=== PATIENT | male | born 1955 | race Caucasian/White ===

== ENCOUNTER 2024-05-16 08:25 | Emergency (ER) | payer MEDICARE, SELFPAY ==
[2024-05-16 08:42] VITALS: BP 246/153; PULSE 97; RESP 18; TEMP 36.5; O2SAT 95
--- NOTE | 2024-05-16 08:57 | W.ED.GENAD ---
Discharge Plan Disposition Patient Disposition: Home Condition: Stable Discharge Details Chief Complaint: Urinary Clinical Impression: Hypertension, Acute urinary retention, Hematuria Primary Care Provider: None,None ED Provider: Festus Kimbrough Home Meds and New Rx's Prescriptions: No Action No Known Home Meds Discharge Instructions Instructions: How to Care for Your Rodríguez Catheter Additional Instructions: You had a Rodríguez placed for urinary retention. He also have bloody urine. I recommend stopping your aspirin that you been taking. He also had a high blood pressure here and I recommended starting on a blood pressure medicine but he wanted to talk to your primary care provider first. I do recommend you follow-up with them as soon as possible. I also placed her on a follow-up list to see urology, you should receive a phone call for follow-up appointment. If you feel more ill or have new symptoms such as severe abdominal pain or fevers return to the emergency department for reevaluation Referrals: Jean-Pierre Soto MD [ [facility] STAFF PHYSICIAN] - [facility] General Mode of arrival: ambulatory. Date/Time Provider Initiated Documentation: 05/16/24 08:31. Limitations to Documentation: no limitations. Information obtained by: patient. History of Present Illness 68 year old M presents to the emergency department with the chief complaint of difficulty breathing, described as moderate, Patient reports no radiation. Patient started experiencing this hour(s) (12) and it has been constant. No relieving factors improve symptom(s), No exacerbating factors reported . Patient notes denies fever/chills, nausea/vomiting and shortness of breath. Patient did receive the following treatments prior to arrival, none Related Data Home Medications ?Medication ?Instructions ?Recorded ?Confirmed Unknown [No Known Home Meds] 05/16/24 05/16/24 Allergies Allergy/AdvReac Type Severity Reaction Status Date / Time No Known Allergies Allergy Unverified 05/16/24 08:46 General Stated Complaint: Urinary KERRY: 3 Review of Systems All systems reviewed & are unremarkable except as noted in HPI and below Constitutional Constitutional: Denies chills, Denies fever(s) and Denies weakness Cardiovascular Cardiovascular: Denies chest pain and Denies dyspnea Respiratory Respiratory: Denies cough and Denies dyspnea Gastrointestinal Gastrointestinal: Denies abdominal pain, Denies nausea and Denies vomiting Genitourinary Genitourinary: Reports hematuria and Reports difficulty urinating Neurologic Neurologic: Denies weakness Exam Const General: no acute distress Orientation: alert [facility] Head: normal to inspection Ears: external ears normal General nose exam: external nose normal Mouth: moist mucous membranes Eyes General: appearance normal, both eyes and all related structures Neck Neck: normal visual inspection Resp Effort & Inspection: normal respiratory effort and able to speak in complete sentences Cardio Rate: regular rate GI Palpation: not firm and no guarding Skin General skin exam: no rashes or lesions noted Neuro General: patient alert and patient oriented x3 Extrem General: normal to inspection Psych Mental Status: mental status grossly normal Course Vital Signs Vital signs: Vital Signs Temperature 36.5 C 05/16/24 08:42 Pulse 97 H 05/16/24 08:42 Respiratory Rate 18 05/16/24 08:42 Blood Pressure 246/153 H 05/16/24 08:42 Pulse Oximetry 95 05/16/24 08:42 Temperature 36.5 C 05/16/24 08:42 Temperature Source Oral 05/16/24 08:42 Pulse 97 H 05/16/24 08:42 Respiratory Rate 18 05/16/24 08:42 Blood Pressure 246/153 H 05/16/24 08:42 Pulse Oximetry 95 05/16/24 08:42 Pain Level 7 05/16/24 08:42 Medical Decision Making 68-year-old male who denies any chronic medical problems though he does not see a doctor regularly, comes in with 12 hours of difficulty urinating. He also notes some blood in his urine. He denies any fevers, vomiting. Suprapubic region is mildly enlarged but not tender. He does have over 600 cc on bladder scan. No CVA tenderness. I suspect acute urinary retention, he has no saddle anesthesia or back pain to suggest cauda equina. I will have nursing place a Rodríguez catheter and reassess. I did check basic labs and he has a mild anemia, no old to compare to. He does have a creatinine as well of 2.6 with a GFR of 25. Again no old to compare to any does not believe he had blood work done in years. He has been hypertensive since being here, I do suspect he has an treated hypertension and likely is affecting his kidneys. Nursing was able to place a Rodríguez and had blood that came out, they were able to hand irrigate and now is draining clear faintly tinged bloody urine. He has no abdominal tenderness andNo back pain. I recommended starting him on an antihypertensive but he declines and states that he cannot follow-up with a personal doctor diagnosed. I am going to give him a referral to see urology soon as possible for management of his hematuria and urinary retention. Return precautions given Differential Diagnosis Differential Diagnosis: Enlarged prostate, cancer, UTI Quality:SDOH Health Related Social Needs: No Data to Display PFSH All Active Problems (Updated 05/16/24 @ 13:00 by Festus Kimbrough MD) Hematuria (Acute) Acute urinary retention (Acute) Hypertension (Chronic) Social History Smoking/Tobacco Use Status: Never Smoking risk assessment performed?: Yes Substance use type: does not use Do you feel safe at home: Yes Do you feel safe in your relationship?: Yes
[2024-05-16 10:09] LABS: Bilirubin Negative (Negative); Blood Large (Negative); Clarity Cloudy (Clear); Glucose Negative (Negative); Ketones Negative (Negative); Leukocyte Esterase Trace (Negative); Nitrite Negative (Negative); Specific Gravity 1.025 (1.005-1.025); Urobilinogen 0.2 mg/dL (Up to 0.2)
[2024-05-16 10:15] LABS: C & S Indicated? No; RBC >50 HPF (0-2)
[2024-05-16 11:08] LABS: Abs Immature Grans 0.03 10^3/uL (0.0-0.06); Absolute Basophil Count 0.03 10^3/uL (0.0-0.2); Absolute Lymphocyte Count 0.36 10^3/uL (1.2-3.4); Absolute Neutrophil Count 8.04 10^3/uL (1.2-6.7); Basophils % 0.3 %; HGB 12.5 g/dL (13.5-17.5); Immature Grans % 0.3 %; MCHC 32.9 % (32.0-36.0); MCV 85 fL (80-95); MPV 10.6 fL (8.0-11.0); Monocytes % 6.6 %; Neutrophils % 88.8 %; Platelet Count 171 10^3/uL (130-400); RBC 4.47 10^6/uL (4.36-5.78); RDW-SD 40.4 fL; WBC 9.06 10^3/uL (4.4-10.8)
[2024-05-16 11:34] LABS: ALT 25 U/L (16-63); AST 21 U/L (15-37); Albumin 3.7 g/dL (3.4-5.0); Alkaline Phosphatase 98 U/L (46-116); Anion Gap 10.9 mmol/L (3-11); BUN 54 mg/dL (7-18); Bilirubin, Total 0.51 mg/dL (0.2-1.0); CO2 24.1 mmol/L (21.0-32.0); CREATININE 2.6 mg/dL (0.70-1.30); Chloride 104 mmol/L (98-107); Estimated GFR 25.72 (mL/min/1.73m2); Glucose 112 mg/dL (74-106); Potassium 3.6 mmol/L (3.5-5.1); Sodium 139 mmol/L (136-145); Total Protein 7.2 g/dL (6.4-8.2)
[2024-05-16 12:09] VITALS: BP 197/117; PULSE 87; RESP 20; O2SAT 96
[2024-05-16 13:25] VITALS: BP 191/103; PULSE 88; RESP 18; O2SAT 95
== END 2024-05-16 13:45 | disposition home or self-care (01) ==
PROVIDERS: Emergency Provider Emergency Medicine
DX: R31.9 Hematuria, unspecified (principal); R33.8 Other retention of urine; I10 Essential (primary) hypertension
CPT/HCPCS: 36415; 51702; 51798; 80048; 80053; 99284; 81003; 81015; 83735; 85025

== ENCOUNTER 2024-05-17 02:17 | Emergency (ER) | payer MEDICARE, SELFPAY ==
[2024-05-17 02:20] VITALS: BP 153/93; PULSE 95; RESP 16; TEMP 37.6; O2SAT 97
[2024-05-17 02:24] VITALS: BP 153/93; PULSE 95; RESP 16; TEMP 37.6; O2SAT 97
--- NOTE | 2024-05-17 03:34 | W.ED.GENAD ---
Discharge Plan Disposition Patient Disposition: Home Condition: Good Discharge Details Chief Complaint: Urinary Clinical Impression: Hematuria Primary Care Provider: None,None ED Provider: Chuck Steven Home Meds and New Rx's Prescriptions: No Action No Known Home Meds Discharge Instructions Instructions: Blood in Urine (Hematuria), Adult ED Additional Instructions: As we discussed together it is very important that you follow-up closely with Dr. Soto. Although you have desired to hold off on a referral for a primary care provider, if you change your mind at any point do not hesitate to reach back out and we can place this referral for you. Please perform the flushing techniques that you were shown. Although you declined admission tonight, if you continue to have issues with your catheter we are always happy to have you come back and reevaluate the option for admission. If you notice any worsening of your symptoms, or any new symptoms such as vomiting, diarrhea, fever, chills, shortness of breath, chest pain, numbness, weakness, or fainting , please return immediately to the emergency department for reevaluation. Please follow up with your primary care provider as soon as possible for reassessment and reevaluation. As always, it was a pleasure participating in your medical care today. Referrals: Jean-Pierre Soto MD [ [facility] STAFF PHYSICIAN] - [facility] General Date/Time Provider Initiated Documentation: 05/17/24 02:27. [facility] Narrative: This is a pleasant 68-year-old male with no significant past medical history since he does not visit a doctor regularly, who presents for evaluation of hematuria. Patient states that he has been having intermittent hematuria for the last 5+ years, however it recently got bad in the last day or so. He was here in the emergency department earlier yesterday for hematuria. Blood work was performed and demonstrated a stable hemoglobin at 12.5, normal platelets. A Rodríguez catheter was placed and he was discharged home with expectant outpatient follow-up with urology. Unfortunately this evening he had a significant amount of clots again, and felt notable fullness in his bladder and came back for reassessment. Aside for this he denies any other complaints. He was taking aspirin regularly but has stopped that now. This was self prescribed. He denies any personal or family history of bladder or prostate cancer. No other complaints at this time. Related Data Home Medications ?Medication ?Instructions ?Recorded ?Confirmed Unknown [No Known Home Meds] 05/16/24 05/17/24 Allergies Allergy/AdvReac Type Severity Reaction Status Date / Time No Known Allergies Allergy Unverified 05/17/24 02:24 General Stated Complaint: Urinary KERRY: 4 Exam Narrative Exam Narrative: 1.Const: Well-nourished, Well-developed, appearing stated age 2.Eyes: PERRL, no conjunctival injection, and symmetrical lids. 3.ENT: Atraumatic external nose and ears. Moist MM. Neck: Symmetric, trachea midline, No thyromegaly. 4.CVS: +S1/S2, Peripheral pulses 2+ and equal in all extremities. Brisk capillary refill in all extremities. 5.RESP: Unlabored respiratory effort. Clear to auscultation bilaterally. No wheezes rales or rhonchi 6.GI: Soft, Nontender/Nondistended, No hepatosplenomegaly. No guarding or rebound. Mild fullness suprapubically. Catheter in place, no active bleeding around the Rodríguez. 7.MSK: Normocephalic/Atraumatic, Extremities w/o deformity or ttp No cyanosis or clubbing, Normal movement of all extremities 8.Skin: Warm, Dry. No rashes or lesions. 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 Sensation grossly intact, no focal neurologic deficits. 10.Psych: (AAO) x3. Appropriate mood and affect Course Vital Signs Vital signs: Vital Signs Temperature 37.6 C 05/17/24 02:20 Pulse 95 H 05/17/24 02:20 Respiratory Rate 16 05/17/24 02:20 Blood Pressure 153/93 H 05/17/24 02:20 Pulse Oximetry 97 05/17/24 02:20 Temperature 37.6 C 05/17/24 02:24 Temperature Source Temporal Artery Scan 05/17/24 02:24 Pulse 95 H 05/17/24 02:24 Respiratory Rate 16 05/17/24 02:24 Blood Pressure 153/93 H 05/17/24 02:24 Pulse Oximetry 97 05/17/24 02:24 Oxygen Delivery Method Room Air 05/17/24 02:24 Oxygen Flow Rate 0 05/17/24 02:20 Pain Level 5 05/17/24 02:24 Medical Decision Making This is a pleasant 68-year-old male with no significant past medical history since he does not visit a doctor regularly, who presents for evaluation of hematuria. Patient states that he has been having intermittent hematuria for the last 5+ years, however it recently got bad in the last day or so. He was here in the emergency department earlier yesterday for hematuria. Blood work was performed and demonstrated a stable hemoglobin at 12.5, normal platelets. A Rodríguez catheter was placed and he was discharged home with expectant outpatient follow-up with urology. Unfortunately this evening he had a significant amount of clots again, and felt notable fullness in his bladder and came back for reassessment. Aside for this he denies any other complaints. He was taking aspirin regularly but has stopped that now. This was self prescribed. He denies any personal or family history of bladder or prostate cancer. No other complaints at this time. Exam demonstrates well-appearing male, clinically stable, no signs of an acute surgical abdomen. Notable clots are noted in his Rodríguez catheter. Concern for cystic mass, polyp or ulcer as a cause of the bleeding. Discussed with the patient options for three-way irrigation and admission, but the patient has declined. He would prefer to go home and follow-up outpatient with Dr. Soto. We will flush his catheter, monitor closely and reassess. 6:40 AM Patient had a few episodes of clots, multiple washings were performed. Eventually all clots were removed and the patient requested instructions on how to to do it at home. He was provided this education. He continues to decline admission. Additionally I did offer to place a PCP referral as I am notably concerned with his hematuria, it is renal dysfunction, and lack of good medical evaluation over the last decade or so. However, patient has declined PCP referral and request to focus primarily on his work with Dr. Soto at this time. Patient will be holding off on aspirin use. I had a long discussion with the patient that if at any point he changes his mind on his desire for referral or admission we are happy to have him back for reevaluation and assessment. Patient will be discharged home. I have extensively reviewed the treatment plan and discharge instructions with the patient. I have addressed all patient concerns at this time. The patient was made aware of what symptoms to monitor for that would warrant a return to the emergency department. Discussed the plan with the patient, they demonstrate verbal understanding and agreement with our assessment and plan at this time. The documentation in this chart was dictated using ncyclo dictation software. Please excuse any dictation errors. Quality:SDOH Health Related Social Needs: No Data to Display PFSH All Active Problems (Updated 05/17/24 @ 06:39 by Chuck Steven DO) Hematuria (Acute) Hematuria (Acute) Acute urinary retention (Acute) Hypertension (Chronic) Social History Smoking/Tobacco Use Status: Never Smoking risk assessment performed?: Yes Alcohol Intake: never Drug use: Never Substance use type: does not use Housing: house Do you feel safe at home: Yes Do you feel safe in your relationship?: Yes
--- NOTE | 2024-05-17 05:19 | NUR.NOTE ---
Nursing Note: pt educated on leg bag and care of the alegre and proper placement, he stated that he was not told on the care or if the extension tubing and not to allow it kink
[2024-05-17 06:56] VITALS: BP 140/76; PULSE 67; RESP 16; TEMP 36.7; O2SAT 99
--- NOTE | 2024-05-19 16:00 | NUR.NOTE ---
Nursing Note: Received call from that patient has run out of saline to flush his catheter with and doesnt have an appt with [facility] until tomorrow and needs more fluids. 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
== END 2024-05-17 06:56 | disposition home or self-care (01) ==
PROVIDERS: Emergency Provider Student in an Organized Health Care Education/Training Program
DX: R31.9 Hematuria, unspecified (principal)
CPT/HCPCS: 51700; 99284; 99283

== ENCOUNTER → 2024-05-22 14:10 | Outpatient (BNVA) | payer MEDICARE, SELFPAY | PROVIDERS: Visit Provider Urology | DX: R31.9 Hematuria, unspecified (principal); R79.89 Other specified abnormal findings of blood chemistry | CPT/HCPCS: 99215 ==

== ENCOUNTER 2024-05-30 22:21 | Emergency (ER) | payer MEDICARE, SELFPAY ==
[2024-05-30 22:45] VITALS: BP 148/87; PULSE 84; RESP 16; TEMP 36.3; O2SAT 97
--- NOTE | 2024-05-30 22:46 | ED.GENADUL_ITS ---
Discharge Plan Disposition Patient Disposition: Home Condition: Good Discharge Details Clinical Impression: Alegre catheter problem Primary Care Provider: None,None ED Provider: Darshan Head Home Meds and New Rx's Prescriptions: No Action No Known Home Meds Discharge Instructions Additional Instructions: You were seen because your alegre bag was leaking, this was replaced. Be sure to follow up for your ordered studies and with Dr. Soto. Return to ED for problems. Discharge Data Discharge Date/Time-TO BE ENTERED AT DEPARTURE: 05/30/24 22:56 HPI General Mode of arrival: ambulatory . Date/Time Provider Initiated Documentation: 05/30/24 22:46 . Limitations to Documentation: no limitations . Information obtained by: patient and RN notes reviewed . HPI Narrative: Patient presenting to ED because his Alegre catheter bag is leaking. Patient has Alegre catheter in place because of hematuria and urinary retention. He is not having issues with the catheter. He is leaking from the bag itself. He is placed the Alegre bag inside a freezer bag to prevent leakage. He presents requesting a new Alegre bag. Related Data Home Medications ?Medication ?Instructions ?Recorded ?Confirmed Unknown [No Known Home Meds] 05/16/24 05/30/24 Allergies Allergy/AdvReac Type Severity Reaction Status Date / Time No Known Allergies Allergy Unverified 05/30/24 22:44 General KERRY: 4 Exam Narrative Exam Narrative: Const: WDWN elderly male in NAD. VS per triage. HEENT: NC/AT. Normal facial exam. Neck: Supple. Trachea midline. Lungs: Normal respiratory effort. Neuro: A+O x 3. Normal speech, mentation, gait. Cranial nerves II - XII grossly intact. No gross motor or sensory deficit. Medical Decision Making Patient's catheter does seem to be draining appropriately. There is leakage from the bag itself into the plastic freezer bag that he has placed his Alegre bag again. He has no specific medical complaints. He has already been seen by urology and is in the process of being worked up. He is provided with a new Alegre leg bag. Follow-up with PCP and urology as planned. Return precautions provided. Medical Records Medical records reviewed: Yes I reviewed the patient's medical records. [facility] All Active Problems (Updated 05/30/24 @ 22:55 by Darshan Head MD) Alegre catheter problem (Acute) Elevated serum creatinine (Acute) Hematuria (Acute) Acute urinary retention (Acute) Medical History Hypertension Social History Smoking/Tobacco Use Status: Never Smoking risk assessment performed?: Yes Alcohol Intake: never Drug use: Never Substance use type: does not use Housing: house Do you feel safe at home: Yes Do you feel safe in your relationship?: Yes
== END 2024-05-30 22:56 | disposition home or self-care (01) ==
PROVIDERS: Emergency Provider Emergency Medicine
DX: T83.038A Leakage of other urinary catheter, initial encounter (principal)
CPT/HCPCS: 99282

== ENCOUNTER 2024-06-15 12:46 | Outpatient (CLI) | payer MEDICARE, SELFPAY ==
[2024-06-15 13:59] LABS: Anion Gap 10.4 mmol/L (3-11); CO2 25.6 mmol/L (21.0-32.0); Chloride 108 mmol/L (98-107); Potassium 4.5 mmol/L (3.5-5.1); Sodium 144 mmol/L (136-145)
[2024-06-15 22:37] LABS: PSA, Diagnostic 6.5 ng/mL (<=6.5)
== END 2024-06-15 12:47 | disposition home or self-care (01) ==
LOC: LBO 12:46
PROVIDERS: Visit Provider Urology
DX: R31.0 Gross hematuria (principal); I10 Essential (primary) hypertension
CPT/HCPCS: 36415; 80051; 84153

== ENCOUNTER 2024-06-19 16:18 | Emergency (ER) | payer MEDICARE, SELFPAY ==
[2024-06-19 16:24] VITALS: BP 219/114; PULSE 82; RESP 15; TEMP 36.3; O2SAT 98
[2024-06-19 16:28] VITALS: BP 219/114; PULSE 82; RESP 15; TEMP 36.3; O2SAT 98
[2024-06-19 16:59] VITALS: BP 198/97
[2024-06-19 17:10] LABS: Abs Immature Grans 0.03 10^3/uL (0.0-0.06); Absolute Basophil Count 0.05 10^3/uL (0.0-0.2); Absolute Eosinophil Count 0.16 10^3/uL (0.0-0.7); Absolute Lymphocyte Count 0.69 10^3/uL (1.2-3.4); Absolute Monocyte Count 0.45 10^3/uL (0.1-0.8); Absolute Neutrophil Count 5.45 10^3/uL (1.2-6.7); Basophils % 0.7 %; Eosinophils % 2.3 %; HCT 26.4 % (40.0-50.0); HGB 8.2 g/dL (13.5-17.5); Immature Grans % 0.4 %; Lymphocytes % 10.1 %; MCH 26.5 pg (27.0-33.0); MCHC 31.1 % (32.0-36.0); MCV 85 fL (80-95); MPV 10.2 fL (8.0-11.0); Monocytes % 6.6 %; Neutrophils % 79.9 %; Platelet Count 259 10^3/uL (130-400); RBC 3.09 10^6/uL (4.36-5.78); RDW 13.1 % (11.8-14.1); RDW-SD 40.6 fL; WBC 6.83 10^3/uL (4.4-10.8)
[2024-06-19 17:20] LABS: Diff Comment RBC Morph Reviewed; RBC Morphology Normal
[2024-06-19 17:21] LABS: Anion Gap 13.5 mmol/L (3-11); BUN 42 mg/dL (7-18); CO2 20.5 mmol/L (21.0-32.0); CREATININE 2.3 mg/dL (0.70-1.30); Calcium 9.1 mg/dL (8.5-10.1); Chloride 110 mmol/L (98-107); Glucose 103 mg/dL (74-106); Sodium 144 mmol/L (136-145)
[2024-06-19 19:16] VITALS: BP 182/87; PULSE 78; RESP 16; O2SAT 98
--- NOTE | 2024-06-19 19:37 | W.ED.GENAD ---
Discharge Plan Disposition Patient Disposition: Home Condition: Serious Discharge Details Clinical Impression: Acute renal failure, Anemia, Gross hematuria Primary Care Provider: Unknown,Unknown ED Provider: Adilia Hand Home Meds and New Rx's Prescriptions: Continued losartan 25 mg tablet 25 mg PO BID Patient Comments: TAKE ONE TABLET BY MOUTH TWICE A DAY aspirin 81 mg tablet,chewable 81 mg PO DAILY Discharge Instructions Instructions: Acute Kidney Injury (DC), Anemia, Possibly From Low Iron, Adult ED, Blood in Urine (Hematuria), Adult ED Additional Instructions: I am concerned you may have a bladder mass or bladder cancer you are in renal failure and your blood pressure is elevated, 2.3 your hemoglobin and hematocrit are very low 8.2 and 26.4 your exam is very concerning and we recommend CT imaging to evaluate for cancer and the cause of your severely diminished hemoglobin levels your blood pressure is very high, i recommend adding another blood pressure medication you have declined additional work up at this time you understand that you may have cancer and we are recommending urgent imaging, please discuss with your natropath and let him review this note care for your alegre with supplies call Dr Soto tomorrow Referrals: Jean-Pierre Soto MD [ [facility] STAFF PHYSICIAN] - 1 day HPI General Date/Time Provider Initiated Documentation: 06/19/24 16:36. HPI Narrative: The patient is a 68-year-old male with gross hematuria, intermittent clots, and bladder pressure. He feels his Alegre catheter is not draining properly. He had a Alegre catheter placed a month ago and refused imaging during follow-ups with urology. He is currently refusing hospital admission and CT imaging, preferring to wait for his holistic practitioner appointment tomorrow. He is aware of his anemia, ongoing bleeding, acute renal failure, and likely bladder mass. Despite recommendations for imaging and admission, he declines intervention. We flushed his Alegre catheter, which is now draining without clots. He is hypertensive (BP 182/87) and will follow up with his practitioner. A referral to Dr. Griggs has been placed. The patient and his were advised on iron supplements and protein intake to manage hemoglobin levels at home. Related Data Home Medications ?Medication ?Instructions ?Recorded ?Confirmed aspirin 81 mg chewable tablet 81 mg PO DAILY 06/19/24 06/19/24 losartan 25 mg tablet 25 mg PO BID 06/19/24 06/19/24 Allergies Allergy/AdvReac Type Severity Reaction Status Date / Time No Known Allergies Allergy Unverified 06/19/24 16:29 General Stated Complaint: Urinary KERRY: 3 Exam Narrative Exam Narrative: General Appearance: The patient is alert, oriented, pale, and in no acute distress. Vital signs: BP 182/87. HEENT: Within normal limits. Respiratory: Within normal limits. Cardiovascular: Within normal limits. Gastrointestinal: No suprapubic or flank tenderness. Genitourinary: Gross hematuria in the Alegre catheter without clots. Skin: Within normal limits. Neurological: Normal. Course Vital Signs Vital signs: Vital Signs Temperature 36.3 C L 06/19/24 16:24 Pulse 82 06/19/24 16:24 Respiratory Rate 15 06/19/24 16:24 Blood Pressure 219/114 H 06/19/24 16:24 Pulse Oximetry 98 06/19/24 16:24 Temperature 36.3 C L 06/19/24 16:28 Pulse 78 06/19/24 19:16 Respiratory Rate 16 06/19/24 19:16 Blood Pressure 182/87 H 06/19/24 19:16 Blood Pressure Position Sitting 06/19/24 16:28 Pulse Oximetry 98 06/19/24 19:16 Oxygen Delivery Method Room Air 06/19/24 16:28 Oxygen Flow Rate 0 06/19/24 16:28 Pain Level 0 06/19/24 19:16 Lab/Test Results Lab/Test Results: Laboratory Tests Range/Units 06/19/24 17:03 WBC (4.4-10.8) 10^3/uL 6.83 RBC (4.36-5.78) 10^6/uL 3.09 L Hgb (13.5-17.5) g/dL 8.2 L Hct (40.0-50.0) % 26.4 L MCV (80-95) fL 85 MCH (27.0-33.0) pg 26.5 L MCHC (32.0-36.0) % 31.1 L RDW (11.8-14.1) % 13.1 Plt Count (130-400) 10^3/uL 259 MPV (8.0-11.0) fL 10.2 Immature Gran % % 0.4 Neutrophils % % 79.9 Lymphocytes % % 10.1 Monocytes % % 6.6 Eosinophils % % 2.3 Basophils % % 0.7 Nucleated RBC % (0.0-0.3) % 0.0 Absolute Neutrophils (1.2-6.7) 10^3/uL 5.45 Absolute Lymphocytes (1.2-3.4) 10^3/uL 0.69 L Absolute Monocytes (0.1-0.8) 10^3/uL 0.45 Absolute Eosinophils (0.0-0.7) 10^3/uL 0.16 Absolute Basophils (0.0-0.2) 10^3/uL 0.05 RBC Morphology Normal Sodium (136-145) mmol/L 144 Potassium (3.5-5.1) mmol/L 4.0 Chloride (98-107) mmol/L 110 H Carbon Dioxide (21.0-32.0) mmol/L 20.5 L Anion Gap (3-11) mmol/L 13.5 H BUN (7-18) mg/dL 42 H Creatinine (0.70-1.30) mg/dL 2.3 H Est GFR (CKD-EPI 2020) (mL/min/1.73m2) 29.80 Glucose (74-106) mg/dL 103 Calcium (8.5-10.1) mg/dL 9.1 Medical Decision Making Hemoglobin dropped from 12 to 8. Hematocrit dropped from 32 to 26. Anion gap elevated. BUN 42, creatinine 2.3. Initial Assessment: 68-year-old male with blood in urine, intermittent difficulty, clots, and bladder pressure. Alegre catheter concerns. Anemia, elevated anion gap, BUN 42, creatinine 2.3. Differential Diagnosis: - Bladder mass: Concern for gross hematuria. Recommended CT abdomen/pelvis. Patient refuses imaging and admission. ED Course: - Alegre catheter flushed and draining without clots. - Referral to Dr. Griggs placed. - Patient advised on iron supplements and protein intake for anemia. - Patient advised to follow up with holistic practitioner for acute renal failure and hypertension. Final Assessment: Patient presents with gross hematuria, likely due to a bladder mass. Anemia with significant hemoglobin drop. Acute renal failure and hypertension noted. Patient refuses recommended imaging and admission. Alegre catheter flushed and draining appropriately. Referral to Dr. Griggs placed. Patient advised on dietary supplements and follow-up with holistic practitioner. Clinical Impression: - Gross hematuria - Anemia - Acute renal failure - Hypertension Disposition: - Follow-Up: Referral to Dr. Griggs urgently in the outpatient setting. Follow-up with holistic practitioner. Patient Education: Advised on iron supplements and protein intake. Discussed urgency of follow-up and need for imaging and admission. MDM Components Evaluation: - Number of Differential Diagnoses or Management Options: Bladder mass - Amount and Complexity of Data Reviewed: Hemoglobin, hematocrit, BUN, creatinine, blood pressure - Risk of Complication and Morbidity or Mortality: High risk due to ongoing bleeding, anemia, acute renal failure, and hypertension. Quality:SDGA Health Related Social Needs: No Data to Display PFSH All Active Problems (Updated 06/19/24 @ 18:36 by FAITH Taylor) Gross hematuria (Acute) Anemia (Chronic) Acute renal failure (Acute) Alegre catheter problem (Acute) Elevated serum creatinine (Acute) Medical History Hypertension Social History Smoking/Tobacco Use Status: Never Smoking risk assessment performed?: Yes Alcohol Intake: never Drug use: Never Substance use type: does not use Housing: house Do you feel safe at home: Yes Do you feel safe in your relationship?: Yes
--- NOTE | 2024-06-21 17:35 | NUR.NOTE ---
Patient called stating that he had blood work done this week and was wondering what his blood type is. In reviewing his results with Dr. Henao, there was no blood typing done. Patient was told this. Nursing Note:
== END 2024-06-19 19:07 | disposition home or self-care (01) ==
PROVIDERS: Emergency Provider Physician Assistant
DX: R31.0 Gross hematuria (principal); D64.9 Anemia, unspecified; N17.9 Acute kidney failure, unspecified; I10 Essential (primary) hypertension
CPT/HCPCS: 51700; 80048; 99283; 85025

== ENCOUNTER 2024-06-22 15:44 | Emergency (ER) | payer MEDICARE, SELFPAY ==
[2024-06-22] VITALS (18 sets, daily range): BP systolic 179–207; BP diastolic 84–106; PULSE 72–94; RESP 14–25; TEMP 36.5–36.8; O2SAT 85–98
--- NOTE | 2024-06-22 15:45 | RT.EKG_ITS ---
APPROVED REPORT Exam: Resting ECG Reason for Exam: Weakness Patient Location: E HR:79 bpm ECG Measurements Heart Rate 79 AXIS IN 189 P 54 QRSd 93 QRS 64 QT 373 T [id number] QTc 429 Conclusion Sinus rhythm [address] non specific ST change no stemi
[2024-06-22 16:14] LABS: Abs Immature Grans 0.03 10^3/uL (0.0-0.06); Absolute Basophil Count 0.02 10^3/uL (0.0-0.2); Absolute Eosinophil Count 0.03 10^3/uL (0.0-0.7); Absolute Lymphocyte Count 0.51 10^3/uL (1.2-3.4); Absolute Monocyte Count 0.36 10^3/uL (0.1-0.8); Absolute Neutrophil Count 7.61 10^3/uL (1.2-6.7); Basophils % 0.2 %; Eosinophils % 0.4 %; HGB 7.8 g/dL (13.5-17.5); Immature Grans % 0.4 %; MCH 26.1 pg (27.0-33.0); MCHC 31.2 % (32.0-36.0); MCV 84 fL (80-95); MPV 10.4 fL (8.0-11.0); Monocytes % 4.2 %; Neutrophils % 88.8 %; Platelet Count 282 10^3/uL (130-400); RBC 2.99 10^6/uL (4.36-5.78); RDW 13.2 % (11.8-14.1); RDW-SD 40.3 fL; WBC 8.56 10^3/uL (4.4-10.8)
[2024-06-22 16:27] LABS: ALT 17 U/L (16-63); AST 10 U/L (15-37); Albumin 3.4 g/dL (3.4-5.0); Alkaline Phosphatase 82 U/L (46-116); Anion Gap 15.3 mmol/L (3-11); BUN 37 mg/dL (7-18); Bilirubin, Total 0.4 mg/dL (0.2-1.0); CO2 19.7 mmol/L (21.0-32.0); CREATININE 2.3 mg/dL (0.70-1.30); Calcium 9.2 mg/dL (8.5-10.1); Chloride 107 mmol/L (98-107); Glucose 122 mg/dL (74-106); Magnesium 2.1 mg/dL; Sodium 142 mmol/L (136-145); Total Protein 6.9 g/dL (6.4-8.2)
[2024-06-22] MEDS: Lidocaine 2% Jelly 11 ML SYR (16:43)
[2024-06-22 16:51] LABS: Bilirubin Negative (Negative); Blood Large (Negative); Clarity Cloudy (Clear); Glucose Negative (Negative); Ketones Trace mg/dL (Negative); Leukocyte Esterase Large (Negative); Nitrite Positive (Negative); Urobilinogen 0.2 mg/dL (Up to 0.2); pH 6.5 (5-8)
[2024-06-22 16:56] LABS: Bacteria Many HPF (Negative); Crystals Negative HPF (Negative); Epithelial Cells Few HPF (Negative); Mucus Moderate (Negative); Other Cells Negative (Negative); RBC >50 HPF (0-2); WBC >50 HPF (0-5)
[2024-06-22 16:57] LABS: C & S Indicated? Yes; Casts Negative LPF (Negative)
--- NOTE | 2024-06-22 18:11 | ED.GENADUL_ITS ---
Discharge Plan Disposition Patient Disposition: Against Medical Advice Discharge Details Clinical Impression: Acute renal insufficiency, Rodríguez catheter problem, Anemia, Bladder mass, Catheter-associated urinary tract infection Primary Care Provider: Unknown,Unknown ED Provider: Neal Henao Home Meds and New Rx's Prescriptions: No Action losartan 25 mg tablet 25 mg PO BID Patient Comments: TAKE ONE TABLET BY MOUTH TWICE A DAY aspirin 81 mg tablet,chewable 81 mg PO DAILY Discharge Instructions Additional Instructions: You are choosing to leave the hospital AGAINST MEDICAL ADVICE. You have excepted these risks including the likely resulting that will occur. You have severe anemia that would require a blood transfusion, you have worsening of your renal function and you have a urine infection that would require antibiotic treatment. Without a blood transfusion your symptoms will continue to worsen. Without treatment of without antibiotic treatment of your infection, your symptoms could worsen to sepsis and cause . Please keep your follow-up appointment with the urologist as scheduled. You can return to the hospital at any time to resume care Discharge Data Discharge Date/Time-TO BE ENTERED AT DEPARTURE: 06/22/24 18:12 HPI General Date/Time Provider Initiated Documentation: 06/22/24 16:04 . Limitations to Documentation: no limitations . Information obtained by: patient, family and old records reviewed . HPI Narrative: 68-year-old gentleman with recent medical history of urinary retention, bladder mass, hematuria, renal insufficiency and anemia we presents to the emergency department with persistent weakness. He reports that today he had some tingling inside of his right ear and he wanted to make sure that that was not a stroke. He reports that he thinks that his Rodríguez catheter can be taken out because there is not much urine going into the catheter, he is instead leaking urine into his underwear. He reports that the urine has gotten a little bit more clear and is not as bloody as it used to be initially. reports that he has an a ppointment scheduled with urology in [place] on Wednesday. Related Data Home Medications ?Medication ?Instructions ?Recorded ?Confirmed aspirin 81 mg chewable tablet 81 mg PO DAILY 06/19/24 06/19/24 losartan 25 mg tablet 25 mg PO BID 06/19/24 06/22/24 Allergies Allergy/AdvReac Type Severity Reaction Status Date / Time No Known Allergies Allergy Unverified 06/19/24 16:29 General Stated Complaint: GenMedical KERRY: 3 Exam Narrative Exam Narrative: Review of Systems: All systems reviewed & are unremarkable except as noted in HPI and below Pale, ill-appearing NCAT Mild tachycardia, hypertension Unlabored respiratory effort clear bilaterally Nondistended abdomen no abdominal tenderness Rodríguez catheter in place, minimal urine in the leg bag Extremities w edema bilaterally no focal neurologic deficits, sensation intact, generalized weakness, but no focal deficit Course Vital Signs Vital signs: Vital Signs Temperature 36.5 C 06/22/24 15:46 Pulse 94 H 06/22/24 15:46 Respiratory Rate 16 06/22/24 15:46 Blood Pressure 191/89 H 06/22/24 15:46 Pulse Oximetry 98 06/22/24 15:46 Temperature 36.5 C 06/22/24 16:00 Pulse 83 06/22/24 17:31 Pulse 83 06/22/24 17:40 Respiratory Rate 15 06/22/24 17:40 Respiratory Effort Normal, Non-Labored 06/22/24 16:00 Respiratory Depth Normal 06/22/24 16:00 Respiratory Pattern Normal 06/22/24 16:00 Blood Pressure 207/106 H 06/22/24 17:31 Blood Pressure Mean 146 06/22/24 17:31 Blood Pressure Position Supine 06/22/24 16:00 Pulse Oximetry 97 06/22/24 17:10 Oxygen Delivery Method Room Air 06/22/24 16:00 Pain Level 3 06/22/24 16:00 Lab/Test Results Lab/Test Results: 06/22/24 16:45 Urine - Reflex from Ua Urine Culture - Pending Laboratory Tests Range/Units 06/22/24 06/22/24 16:00 16:45 WBC (4.4-10.8) 10^3/uL 8.56 RBC (4.36-5.78) 10^6/uL 2.99 L Hgb (13.5-17.5) g/dL 7.8 L Hct (40.0-50.0) % 25.0 L MCV (80-95) fL 84 MCH (27.0-33.0) pg 26.1 L MCHC (32.0-36.0) % 31.2 L RDW (11.8-14.1) % 13.2 Plt Count (130-400) 10^3/uL 282 MPV (8.0-11.0) fL 10.4 Immature Gran % % 0.4 Neutrophils % % 88.8 Lymphocytes % % 6.0 Monocytes % % 4.2 Eosinophils % % 0.4 Basophils % % 0.2 Nucleated RBC % (0.0-0.3) % 0.0 Absolute Neutrophils (1.2-6.7) 10^3/uL 7.61 H Absolute Lymphocytes (1.2-3.4) 10^3/uL 0.51 L Absolute Monocytes (0.1-0.8) 10^3/uL 0.36 Absolute Eosinophils (0.0-0.7) 10^3/uL 0.03 Absolute Basophils (0.0-0.2) 10^3/uL 0.02 Sodium (136-145) mmol/L 142 Potassium (3.5-5.1) mmol/L 4.0 Chloride (98-107) mmol/L 107 Carbon Dioxide (21.0-32.0) mmol/L 19.7 L Anion Gap (3-11) mmol/L 15.3 H BUN (7-18) mg/dL 37 H Creatinine (0.70-1.30) mg/dL 2.3 H Est GFR (CKD-EPI 2020) (mL/min/1.73m2) 29.80 Glucose (74-106) mg/dL 122 H Calcium (8.5-10.1) mg/dL 9.2 Magnesium mg/dL 2.1 Total Bilirubin (0.2-1.0) mg/dL 0.4 AST (15-37) U/L 10 L ALT (16-63) U/L 17 Alkaline Phosphatase (46-116) U/L 82 Total Protein (6.4-8.2) g/dL 6.9 Albumin (3.4-5.0) g/dL 3.4 Urine Color (Yellow) Yellow Urine Clarity (Clear) Cloudy Urine pH (5-8) 6.5 Ur Specific [place] (1.005-1.025) 1.020 Urine Protein (Neg-Trace) mg/dL >=300 H Urine Ketones (Negative) mg/dL Trace H Urine Blood (Negative) Large H Urine Nitrite (Negative) Positive H Urine Bilirubin (Negative) Negative Urine Urobilinogen (Up to 0.2) mg/dL 0.2 Ur Leukocyte Esterase (Negative) Large H Urine RBC (0-2) HPF >50 H Urine WBC (0-5) HPF >50 H Ur Epithelial Cells (Negative) HPF Few Urine Crystals (Negative) HPF Negative Urine Bacteria (Negative) HPF Many Urine Casts (Negative) LPF Negative Urine Mucus (Negative) Moderate Urine Other (Negative) Negative Ur Culture Indicated? Yes Urine Glucose (Negative) mg/dL Negative ABO/Rh O Positive Antibody Screen NEGATIVE Medical Decision Making Emergent evaluation of facial numbness. Patient evaluated emergently on arrival due to concerns for possible CVA however the patient has no focal neurologic deficit and does not meet stroke criteria. I suspect that his overall weakness and debility and symptoms are secondary to his ongoing anemia likely secondary to bladder malignancy. I reviewed his medical record and noted his most recent evaluation in the emergency department. At that time there were significant concerns including anemia, renal insufficiency, ultrasound revealed large bladder mass. Patient refused CT transfusion and admission and left AGAINST MEDICAL ADVICE. today lab work was obtained. This demonstrates worsening of his anemia. Hemoglobin 7.8. No leukocytosis. Renal function is 2.3 which is consistent with prior. BUN is slightly elevated at 37, likely some evidence of dehydration. The Rodríguez catheter was changed and this did result in the urine draining and the bag filling up. There was no gross hematuria. The urinalysis does demonstrate signs of infection. Culture has been sent. I updated the patient and his on the findings today. He refuses blood transfusion he refuses antibiotics. He refuses IV fluids or hospitalization. I discussed the risk and benefits of the plan, but the patient would like to go home. He understands that he is leaving AGAINST MEDICAL ADVICE and that his serious medical condition at this time could likely result in his . He accepts the se risks. AMA I had a long discussion with the patient regarding risks, benefits, and alternatives to my recommended treatment plan, which includes Blood transfusion, antibiotics, hospitalization and the patient declined, voicing understanding of the risks but preferring instead to leave against medical advice. Some of the risks we specifically discussed included permanent disability or . I discussed with the patient that they were always welcome back to this department should they change their mind, and that regardless they should follow up with their primary care doctor at the soonest possible opportunity. All questions were answered and the patient left AMA in unchanged condition. Quality:SDOH Health Related Social Needs: No Data to Display PFSH All Active Problems (Updated 06/22/24 @ 17:21 by Neal Henao MD) Catheter-associated urinary tract infection (Acute) Bladder mass (Acute) Anemia (Chronic) Acute renal insufficiency (Acute) Gross hematuria (Acute) Anemia (Chronic) Acute renal failure (Acute) Rodríguez catheter problem (Acute) Elevated serum creatinine (Acute) Medical History Hypertension Social History Smoking/Tobacco Use Status: Never Smoking risk assessment performed?: Yes Alcohol Intake: never Drug use: Never Substance use type: does not use Housing: house Do you feel safe at home: Yes Do you feel safe in your relationship?: Yes
--- NOTE | 2024-06-22 18:13 | NUR.NOTE ---
Patient presented had new 18french alegre inserted, 200mls urinary return same was cloudy with minimal sediments. Patient tolerated procedure
== END 2024-06-22 18:12 | disposition left against medical advice (07) ==
PROVIDERS: Emergency Provider Emergency Medicine
DX: D64.9 Anemia, unspecified (principal); T83.511A Infection and inflammatory reaction due to indwelling urethral catheter, initial encounter; T83.038A Leakage of other urinary catheter, initial encounter; N28.9 Disorder of kidney and ureter, unspecified; I10 Essential (primary) hypertension; Z79.82 Long term (current) use of aspirin; Z53.29 Procedure and treatment not carried out because of patient's decision for other reasons
CPT/HCPCS: 80053; 82962; 86850; 86900; 86901; 87077; 93005; 99284; 81003; 81015; 83735; 85025; 87086; 87186; 93010

== ENCOUNTER 2024-06-27 13:33 | Emergency (ER) | payer MEDICARE, SELFPAY ==
[2024-06-27 13:59] VITALS: BP 188/97; PULSE 85; RESP 20; TEMP 37.1; O2SAT 100
[2024-06-27 14:05] VITALS: BP 188/97; PULSE 85; RESP 15; RESP 20; TEMP 37.1; O2SAT 100
--- NOTE | 2024-06-30 08:22 | ED.GENADUL_ITS ---
Discharge Plan Disposition Patient Disposition: Against Medical Advice Condition: Serious Discharge Details Clinical Impression: Gross hematuria, Dizziness Primary Care Provider: Unknown,Unknown ED Provider: Adilia Hand Home Meds and New Rx's Prescriptions: Continued losartan 25 mg tablet 25 mg PO BID Patient Comments: TAKE ONE TABLET BY MOUTH TWICE A DAY aspirin 81 mg tablet,chewable 81 mg PO DAILY Discharge Instructions Additional Instructions: You are leaving against our medical recommendation and are requesting to go to [facility], please go directly to that hospital for assessment upon departure Discharge Data Discharge Date/Time-TO BE ENTERED AT DEPARTURE: 06/27/24 14:05 HPI General Date/Time Provider Initiated Documentation: 06/27/24 13:47 . HPI Narrative: 68-year-old male presents with dizziness, difficulty standing, weakness, headache, and back pain without vomiting. Declines evaluation. Reports gross hematuria, previously seen at this facility multiple times. No falls or injuries. Called ambulance as he was unable to get up from the floor. Related Data Home Medications ?Medication ?Instructions ?Recorded ?Confirmed aspirin 81 mg chewable tablet 81 mg PO DAILY 06/19/24 06/19/24 losartan 25 mg tablet 25 mg PO BID 06/19/24 06/22/24 Allergies Allergy/AdvReac Type Severity Reaction Status Date / Time No Known Allergies Allergy Unverified 06/19/24 16:29 General Stated Complaint: GenMedical KERRY: 3 Exam Narrative Exam Narrative: General Appearance: Alert but ill-appearing, sallow, cachectic, pale, slurred speech. Vital signs: Within normal limits. HEENT: Pupils equal, round, reactive to light and accommodation. Respiratory: No respiratory distress. Cardiovascular: Regular cardiac rate and rhythm. Gastrointestinal: Mild suprapubic tenderness, no CVA tenderness. Back, Musculoskeletal: Midline lumbar spine tenderness. Skin: Warm and dry, no rash. Neurological: Normal. Other observations: No visible trauma. Course Vital Signs Vital signs: Vital Signs Temperature 37.1 C 06/27/24 13:59 Pulse 85 06/27/24 13:59 Respiratory Rate 20 06/27/24 13:59 Blood Pressure 188/97 H 06/27/24 13:59 Pulse Oximetry 100 06/27/24 13:59 Temperature 37.1 C 06/27/24 14:05 Pulse 85 06/27/24 14:05 Respiratory Rate 15 06/27/24 14:05 Respiratory Effort Normal 06/27/24 14:05 Respiratory Depth Normal 06/27/24 14:05 Respiratory Pattern Normal 06/27/24 14:05 Blood Pressure 188/97 H 06/27/24 14:05 Blood Pressure Position Sitting 06/27/24 14:05 Pulse Oximetry 100 06/27/24 14:05 Oxygen Delivery Method Room Air 06/27/24 14:05 Oxygen Flow Rate 0 06/27/24 14:05 Medical Decision Making Initial Assessment: 5-year-old male presents with dizziness, difficulty standing, headache, back pain, and gross hematuria. Patient is alert but ill in appearance, sallow, cachectic, pale, with slowed speech, mild suprapubic tenderness, midline lumbar spine tenderness, and stable vitals. No vomiting, falls, or injuries reported. ED Course: - Patient declined evaluation. - Recommended CT scans of abdomen and pelvis for cancerous lesions, nephrolithiasis, pyelonephritis, or other pathologies. - Patient's frustrated, prefers private vehicle transport, declines contact with [facility]. - Patient remains seated in bed, on phone with naturopathic doctor. - Offered to help facilitate transfer, declined. -Patient and are aware that they are leaving against our medical recommendation and are at risk for further deterioration and even -I spent approximately 5 minutes reviewing patient's diagnostics from prior evaluations including urinalysis Final Assessment: Patient appears more ill than 10 days ago, grossly anemic with acute change. Declines assessment, requests transfer to [facility]. Patient alert, oriented, ambulatory, weak, stable vitals. Urgent reassessment strongly recommended due to serious health concerns. Clinical Impression: - Gross hematuria - Anemia Disposition: - Transfer: Patient requests transfer to [facility] via private vehicle. MDM Components Evaluation: - Number of Differential Diagnoses or Management Options: Cancerous lesions, nephrolithiasis, pyelonephritis. - Amount and Complexity of Data Reviewed: CT scans recommended. - Risk of Complication and Morbidity or Mortality: High risk due to serious health concerns and acute change in condition. Quality:SDOH Health Related Social Needs: No Data to Display PFSH All Active Problems (Updated 06/30/24 @ 00:02 by FRED GONZALES) Dizziness (Acute) Catheter-associated urinary tract infection (Acute) Bladder mass (Acute) Anemia (Chronic) Acute renal insufficiency (Acute) Gross hematuria (Acute) Anemia (Chronic) Acute renal failure (Acute) Elevated serum creatinine (Acute) Medical History Hypertension Social History Smoking/Tobacco Use Status: Never Smoking risk assessment performed?: Yes Alcohol Intake: never Drug use: Never Substance use type: does not use Housing: house Do you feel safe at home: Yes Do you feel safe in your relationship?: Yes
== END 2024-06-27 14:05 | disposition left against medical advice (07) ==
PROVIDERS: Emergency Provider Physician Assistant
DX: R42 Dizziness and giddiness (principal); R31.0 Gross hematuria; D64.9 Anemia, unspecified; N32.9 Bladder disorder, unspecified; Z79.82 Long term (current) use of aspirin; Z53.29 Procedure and treatment not carried out because of patient's decision for other reasons
CPT/HCPCS: 99283

== ENCOUNTER 2024-10-03 07:55 | Emergency (ER) | payer MEDICARE, SELFPAY ==
[2024-10-03 08:01] VITALS: BP 215/93; PULSE 97; RESP 15; TEMP 36.7; O2SAT 100
--- NOTE | 2024-10-03 08:03 | W.ED.GENAD ---
Discharge Plan Disposition Patient Disposition: Home Discharge Details Clinical Impression: Clot hematuria, Acute urinary retention, Acute kidney injury Primary Care Provider: Unknown,Unknown ED Provider: Zach oMlina Home Meds and New Rx's Prescriptions: Continued losartan 25 mg tablet 25 mg PO BID Patient Comments: TAKE ONE TABLET BY MOUTH TWICE A DAY aspirin 81 mg tablet,chewable 81 mg PO DAILY Discharge Instructions Instructions: Urinary Retention Additional Instructions: He was seen in the emergency department for your abdominal pain. You had urinary retention as a result of blood clots. Please irrigate this catheter at home as discussed. If you do not empty your catheter bag at least once every 8 hours please return to the emergency department. Please also drink plenty of water. You were also found to have an acute kidney injury as your GFR decreased from 30-20. It was advised that you stay overnight in the hospital for hydration. You declined hospitalization. Discharge Data Discharge Date/Time-TO BE ENTERED AT DEPARTURE: 10/03/24 14:01 HPI General Date/Time Provider Initiated Documentation: 10/03/24 08:02. HPI Narrative: MDM This is an uncomfortable appearing hypertensive but normothermic and not tachycardic 69-year-old male with hematuria and urinary retention for which patient will require three-way catheter. Patient is not anticoagulated. Will send urinalysis to assess for UTI. I considered sepsis however the patient denies fevers. No pain out of proportion to suggest necrotizing soft tissue infection. Patient has had episodes of acute urinary retention in the past. No flank pain to suggest ureterolithiasis so we will defer CT scan at this point in time. Patient is not hypotensive to suggest increased risk for ruptured AAA. No chest pain to suggest ACS. No cough to suggest pneumonia. No testicular pain to suggest torsion. 9:35 AM Nursing was unable to place Rodríguez catheter. Will reach out to urology. 11:[address] Soto assisted by placing Rodríguez. Will repeat CHEM7 given MANUEL. Will send patient home with supplies to irrigate. 10:57 AM Patient's MANUEL does not improve despite IV fluids. I was planning on hospitalizing the patient. He was adamant about wanting to be discharged. His pain felt markedly improved. His urinalysis was nitrite negative and not consistent with UTI So I did not feel he required antibiotics. His Rodríguez catheter was still draining blood but this was clearing. We discussed that he should return if he developed worsening pain would consider hospitalization or if he had any other concerns. He understood his return indications and was discharged with empiric trial of expectant outpatient management. HPI This is a male with a history of recurrent urinary issues presenting with hematuria and bladder distention. He is accompanied by his . The patient reports experiencing blood in his urine and significant pressure in his bladder, which he attributes to blood clots obstructing his urethra. These symptoms began on the night of 09/30/2024, but he did not notice bladder swelling until the morning of 10/03/2024. He mentions that his condition has been progressively worsening, although he had a period of improvement recently with no bleeding in his urine. He recalls having a fever for a few hours, which resolved completely. He reports no recent episodes of nausea, vomiting, cough, difficulty breathing, or chest pain. He is not currently under the care of a urologist and is uncertain about any history of kidney stones. He has not undergone any abdominal surgeries. He declines any medication for pain management at this time. He has had two catheters inserted previously, with the second one being slightly larger in diameter. His last catheter was inserted on 05/16/2024 and removed on 06/27/2024. Exam General: Uncomfortable-appearing in no acute distress speaking in complete sentences. Head: Normocephalic, atraumatic. Eye: Extraocular eye movements intact. No conjunctival injection. No scleral icterus. Ear, nose, mouth, throat: Grossly normal inspection. Normal voice, handling secretions normally. Neck: Trachea midline. Cardiovascular: Well-perfused distal extremities. Regular rate rhythm Respiratory: Nonlabored respiration. Gastrointestinal: Nondistended abdomen. Distended bladder. : Circumcised penis. Dried blood around the urethral meatus. Musculoskeletal: No edema. Moving all 4 extremities spontaneously. Skin: Normal for age and race, grossly normal temperature and turgor. No acute rash. Neurologic: Alert and appropriate, no apparent acute deficits. Psychiatric: Mood and manner are appropriate. Grooming and personal hygiene are appropriate. Related Data Home Medications ?Medication ?Instructions ?Recorded ?Confirmed aspirin 81 mg chewable tablet 81 mg PO DAILY 06/19/24 10/03/24 losartan 25 mg tablet 25 mg PO BID 06/19/24 10/03/24 Allergies Allergy/AdvReac Type Severity Reaction Status Date / Time No Known Allergies Allergy Unverified 10/03/24 08:07 General KERRY: 3 PFSH All Active Problems (Updated 10/03/24 @ 11:39 by Zach Molina MD) Acute kidney injury (Acute) Acute urinary retention (Acute) Clot hematuria (Acute) Catheter-associated urinary tract infection (Acute) Elevated serum creatinine (Acute) Medical History Hypertension Social History Smoking/Tobacco Use Status: Never Smoking risk assessment performed?: Yes Alcohol Intake: never Drug use: Never Substance use type: does not use Housing: house Do you feel safe at home: Yes Do you feel safe in your relationship?: Yes
[2024-10-03 08:05] VITALS: BP 215/93; PULSE 97; RESP 15; TEMP 36.7; O2SAT 100
[2024-10-03 08:27] LABS: Abs Immature Grans 0.03 10^3/uL (0.0-0.06); HCT 25.5 % (40.0-50.0); HGB 8.0 g/dL (13.5-17.5); Immature Grans % 0.3 %; MCH 22.4 pg (27.0-33.0); MCHC 31.4 % (32.0-36.0); MCV 71 fL (80-95); MPV 10.8 fL (8.0-11.0); Platelet Count 249 10^3/uL (130-400); RBC 3.57 10^6/uL (4.36-5.78); RDW 17.5 % (11.8-14.1); RDW-SD 45.2 fL; WBC 8.91 10^3/uL (4.4-10.8)
[2024-10-03 08:37] LABS: Anion Gap 18.1 mmol/L (3-11); BUN 59 mg/dL (7-18); CO2 15.9 mmol/L (21.0-32.0); Calcium 9.0 mg/dL (8.5-10.1); Chloride 105 mmol/L (98-107); Estimated GFR 19.93 (mL/min/1.73m2); Glucose 147 mg/dL (74-106); Potassium 4.3 mmol/L (3.5-5.1); Sodium 139 mmol/L (136-145)
[2024-10-03 08:42] LABS: Hypochromasia 2+; Microcytosis 2+; Poikilocytes 1+
[2024-10-03] MEDS: Lidocaine 2% Jelly 6 ML SYR (09:36)
[2024-10-03] MEDS: MORPHine 4 MG/ML SYR IVP (09:59)
[2024-10-03] MEDS: Normal Saline 1,000 ML 1000 ML IV (10:00)
--- NOTE | 2024-10-03 10:13 | NUR.NOTE ---
Nursing Note:Pt came in for urinary retention and bleeding from his penis for 2+ days (per his ). There was a bladder scan and alegre order placed. Myself and another nurse (Marisol Fountain) went into the room to place the alegre. During the procedure the kept trying to move the patient and put items they brought with them into the sterile field. She had to be asked multiple times to please stop moving him and do not place anything in the sterile field. She was asked to please sit down and allow us to do the procedure so that it was done as safely as possible. We were unable to get the catheter in. The catheter kept coiling in his scrotum. The provider was notified and because of his history of trauma to the area, the provider instructed us to wait and he was going to contact urology. The patient and his were made aware of the situation and what the plan was. The patient's demanded that we expedite the visit from urology. I told her that this was not possible. They are aware of the situation and would be down to the department as soon as they could get down to the ED. This made her very angry and she left the department. When she came back, staff was notified that she had gone down and made a complaint about the care being provided. The provider was made aware and he went into the room and spoke with the patient and his . The provider then placed an order for morphine 4 mg and IV fluids due to his labs indicating a kidney injury. When I went into the room to give the fluids and morphine, the asked what I was giving him. I told her morphine for pain and then fluids. I told her the normal saline was necessary for the MANUEL treatment but he could always refuse; however, he would have to be the one to tell me that he did not want it since he is A/Ox4. His yelled at me and stated you are not to give him anything until I speak with Anaid the patients sister who is a natural path. Once the patient's sister gave them permission to accept the fluids and morphine, they were both administered. As I was leaving the room, Dr. Soto had arrived to insert a catheter and irrigate it to the best of his ability. I provided all the items needed for Dr. Soto and left the room.
--- NOTE | 2024-10-03 11:14 | W.UROLOGYCON ---
Date of service: 10/03/24 Time of Service: 10:00 Assessment and Plan Assessment and plan (1) Acute urinary retention: Status: Acute Assessment and plan: It would not surprise me if this gentleman elects not to stay in the hospital for bladder irrigation. If he does elect to go home, I would make sure that we send an irrigating kit/syringe with him. At this point, we do not have access to the patient's [facility] records, but I would suspect that in the longer run, he would benefit from some type of renal imaging. Unfortunately, we need to do so without IV contrast because of his renal function. I would then suggest following up the imaging with a cystoscopy and bladder biopsy. As I mentioned in my previous office note, he should establish care with a primary care provider as he has consistently had uncontrolled hypertension. History of Present Illness History of Present Illness Chief Complaint: Clot retention Narrative: This is a 69-year-old gentleman who has a history of recurrent episodes of gross hematuria. I had actually seen him about 4 months ago. We recommended some type of renal imaging followed by a cystoscopy. He never followed up with our clinic. He does recall having an ultrasound that showed renal cysts. He also had a cystoscopy done at [facility]. At the time, the only bladder finding was reportedly suspicious for catheter cystitis. He presented to our emergency department today with suprapubic pain and an inability to urinate. He had been seen blood in the urine off and on for the past 3 days and he suspected that the clot was causing the retention. He is not anticoagulated and has no known bleeding disorders. When he was evaluated in the emergency department, placement of an irrigating catheter was attempted but was not successful. I was not contacted to place a catheter for this gentleman. He does not recall any prior urologic surgeries [facility] All Active Problems (Updated 10/03/24 @ 11:39 by Zach Molina MD) Acute kidney injury (Acute) Acute urinary retention (Acute) Clot hematuria (Acute) Catheter-associated urinary tract infection (Acute) Elevated serum creatinine (Acute) Medical History Hypertension Social History Smoking/Tobacco Use Status: Never Smoking risk assessment performed?: Yes Alcohol Intake: never Drug use: Never Substance use type: does not use Housing: house Do you feel safe at home: Yes Do you feel safe in your relationship?: Yes Exam Narrative Exam Narrative: He appears quite pale and uncomfortable His vital signs are documented elsewhere His suprapubic area is tender and distended He is circumcised. No urethral lesions are visible He is awake and alert Results Last Vital Signs Temp 36.7 C 10/03/24 08:05 Pulse 97 H 10/03/24 08:05 Resp 15 10/03/24 08:05 BP 215/93 H 10/03/24 08:05 Pulse Ox 100 10/03/24 08:05 Labs 10/03/24 08:13 10/03/24 08:13 Labs: Laboratory Results - last 24 hr 10/03/24 08:13 WBC 8.91 RBC 3.57 L Hgb 8.0 L Hct 25.5 L MCV 71 L MCH 22.4 L MCHC 31.4 L RDW 17.5 H Plt Count 249 MPV 10.8 Immature Gran % 0.3 Neutrophils % 86.1 Lymphocytes % 6.1 Monocytes % 7.0 Eosinophils % 0.1 Basophils % 0.4 Nucleated RBC % 0.0 Absolute Neutrophils 7.67 H Absolute Lymphocytes 0.54 L Absolute Monocytes 0.62 Absolute Eosinophils 0.01 Absolute Basophils 0.04 RBC Morphology See Below Hypochromasia 2+ Poikilocytosis 1+ Microcytosis 2+ Sodium 139 Potassium 4.3 Chloride 105 Carbon Dioxide 15.9 L Anion Gap 18.1 H BUN 59 H Creatinine 3.2 H Est GFR (CKD-EPI 2020) 19.93 Glucose 147 H Calcium 9.0 ABO/Rh O Positive Antibody Screen NEGATIVE Insert Bladder Catheter Text: He is seen in the emergency department. He is in the supine position. His genitalia is prepped with Betadine. 2% Xylocaine jelly is instilled into the urethra to act as a local anesthetic. A 24 Faroese hematuria catheter was passed through the urethra into the bladder. The catheter balloon was inflated with 10 cc of sterile water. Approximately 900 cc of dark red urine was obtained. I then hand irrigated the catheter with several liters of fluid and a Luz syringe. Multiple clots were evacuated. Continuous bladder irrigation was then begun. The catheter was hooked to gravity drainage. The patient tolerated the procedure well. 4 Faroese coude tipped irrigating catheter with 10 cc sterile water in balloon
[2024-10-03 11:35] LABS: Glucose Negative (Negative)
[2024-10-03 11:46] LABS: C & S Indicated? Yes; RBC >50 HPF (0-2)
[2024-10-03 12:23] VITALS: PULSE 64; RESP 16; O2SAT 97
[2024-10-03 12:29] LABS: Anion Gap 15.9 mmol/L (3-11); BUN 57 mg/dL (7-18); CO2 17.1 mmol/L (21.0-32.0); Calcium 8.3 mg/dL (8.5-10.1); Chloride 107 mmol/L (98-107); Estimated GFR 19.93 (mL/min/1.73m2); Glucose 125 mg/dL (74-106); Potassium 4.6 mmol/L (3.5-5.1); Sodium 140 mmol/L (136-145)
[2024-10-03 12:41] VITALS: BP 185/84
--- NOTE | 2024-10-03 12:53 | NUR.NOTE ---
Nursing Note: When into the patients room to PO challenge per the providers request. The of the patient stated where did this water come from? I told her I got it from our bottled water that goes through the bubbler. She then stated Oh no. He isnt going to drink that. Let him drink the water that we brought. It is from our well. I placed anat crackers and peanut butter on the side table. Again, his stated he isn't going to eat this. He will eat something but you need to find him something else. I told them both that I had anat crackers and saltines and that I would bring him the saltines if he would prefer. The patient told me that he is on a strict diet and that he believes he was in this mess because he broke his diet. I took the crackers and peanut butter out of the room and asked that he at least drink the water that way we knew that it was okay to send him home. He agreed to drink the water from his well stating I will be fine to go.
[2024-10-03 13:44] VITALS: BP 177/87; TEMP 36.2; O2SAT 99
--- NOTE | 2024-10-03 13:56 | NUR.NOTE ---
Nursing Note:I went into the room to educate and discharge the patient. He was asked if he wanted to take the bladder irrigation gravity bag since it was larger and would make irrigating the bladder easier. He stated that he would like it. Then when I went in to bring the supplies that they were taking home, the patient's started demanding more supplies. She wanted us to provide them with a bag of chux and depends and more supplies then we were already supplying. Per the provider, I gave them a basin, a few chux, 3 bottles of NS and a 50 ML slip tip syringe. When the patient was trying to get dressed, they were attempting to wrap the alegre tubing around his leg. I instructed them to not do that to help avoid kinking the tubing and causing more issues. They started getting frustrated and cutting me off from my explanations. I then offered a leg bag instead and they accepted this. The bag was replaced and the patient discharged.
== END 2024-10-03 14:01 | disposition home or self-care (01) ==
PROVIDERS: Emergency Provider Emergency Medicine
DX: N17.9 Acute kidney failure, unspecified (principal); R33.8 Other retention of urine; R31.0 Gross hematuria
CPT/HCPCS: 99284 ×2; 96374; 51702; 36415; 51798; 80048; 86850; 86900; 86901; 87077; 96361; 96372; 99283; 81003; 81015; 85025; 87086; 87186; J2270

== ENCOUNTER 2024-10-30 09:31 | Emergency (ER) | payer MEDICARE, SELFPAY ==
[2024-10-30 09:36] VITALS: BP 157/69; PULSE 92; RESP 18; O2SAT 99
--- NOTE | 2024-10-30 09:50 | W.ED.GENAD ---
Discharge Plan Disposition Patient Disposition: Home Condition: Stable Discharge Details Clinical Impression: Acute UTI Primary Care Provider: Unknown,Unknown ED Provider: Festus Kimbrough Home Meds and New Rx's Prescriptions: New ciprofloxacin HCl 500 mg tablet 500 mg PO BID Qty: 13 0RF Continued losartan 25 mg tablet 25 mg PO BID Patient Comments: TAKE ONE TABLET BY MOUTH TWICE A DAY No Action aspirin 81 mg tablet,chewable 81 mg PO DAILY Discharge Instructions Additional Instructions: Your urine appears to have an infection. Take the antibiotic as prescribed. Follow-up with your urologist. If you feel more ill or have new symptoms such as high fevers or severe pain return to the emergency department for reevaluation HPI General Date/Time Provider Initiated Documentation: 10/30/24 09:32. Limitations to Documentation: no limitations. Information obtained by: patient. History of Present Illness 69 year old M presents to the emergency department with the chief complaint of difficulty urinating, described as moderate, Patient started experiencing this day(s) (3) and it has been constant. No relieving factors improve symptom(s), No exacerbating factors reported . Patient notes denies chest pain, fever/chills, nausea/vomiting and shortness of breath. Patient did receive the following treatments prior to arrival, none Related Data Home Medications ?Medication ?Instructions ?Recorded ?Confirmed aspirin 81 mg chewable tablet 81 mg PO DAILY 06/19/24 10/30/24 Held on 10/30/24. Instructions: Changed by Provider losartan 25 mg tablet 25 mg PO BID 06/19/24 10/30/24 ciprofloxacin HCl 500 mg tablet 500 mg PO BID #13 tabs 10/30/24 Previous Rx's ?Medication ?Instructions ?Recorded ciprofloxacin HCl 500 mg tablet 500 mg PO BID #13 tabs 10/30/24 Allergies Allergy/AdvReac Type Severity Reaction Status Date / Time No Known Allergies Allergy Verified 10/30/24 11:14 General Stated Complaint: Urinary EKRRY: 3 Review of Systems All systems reviewed & are unremarkable except as noted in HPI and below Constitutional Constitutional: Denies chills, Denies fever(s) and Denies weakness Cardiovascular Cardiovascular: Denies chest pain and Denies dyspnea Respiratory Respiratory: Denies cough and Denies dyspnea Gastrointestinal Gastrointestinal: Denies abdominal pain and Denies vomiting Genitourinary Genitourinary: Reports difficulty urinating Musculoskeletal Musculoskeletal: Denies joint swelling Neurologic Neurologic: Denies weakness Exam Const General: no acute distress Orientation: alert HENOR Head: normal to inspection Ears: external ears normal General nose exam: external nose normal Mouth: moist mucous membranes Eyes General: appearance normal, both eyes and all related structures Neck Neck: normal visual inspection Resp Effort & Inspection: normal respiratory effort and able to speak in complete sentences Cardio Rate: regular rate GI Palpation: soft, no guarding and tender Skin General skin exam: no rashes or lesions noted Neuro General: patient alert and patient oriented x3 Extrem General: normal to inspection Psych Mental Status: mental status grossly normal Course Vital Signs Vital signs: Vital Signs Pulse 92 H 10/30/24 09:36 Respiratory Rate 18 10/30/24 09:36 Blood Pressure 157/69 H 10/30/24 09:36 Pulse Oximetry 99 10/30/24 09:36 Pulse 92 H 10/30/24 09:36 Respiratory Rate 18 10/30/24 09:36 Blood Pressure 157/69 H 10/30/24 09:36 Pulse Oximetry 99 10/30/24 09:36 Medical Decision Making 69-year-old male who had a Rodríguez placed earlier this month and had removed a few days ago by urologist in [place] and has had issues with hematuria and blood clots comes in with difficulty urinating the past few days. Denies any vomiting or fevers. He is stable on arrival, he does have some suprapubic tenderness and fullness. No scrotal tenderness or swelling. I suspect he has recurrent blood clots, he has no flank pain to suggest kidney stones. Will have nursing attempt to place a Rodríguez catheter again. He declines to have any blood work at this time. Given he has no fevers or other symptoms I do not see such as pyelonephritis or sepsis. Nursing placed a Rodríguez without issue. It is nitrite positive. Looking at past cultures bacteria have grown sensitive to Cipro so we will start him on that. He will follow-up with his urologist and return precautions given Differential Diagnosis Differential Diagnosis: Hematuria, enlarged prostate PFSH All Active Problems (Updated 10/30/24 @ 11:57 by Festus Kimbrough MD) Acute UTI (Acute) Acute kidney injury (Acute) Acute urinary retention (Acute) Clot hematuria (Acute) Catheter-associated urinary tract infection (Acute) Elevated serum creatinine (Acute) Medical History Hypertension Social History Smoking/Tobacco Use Status: Never Smoking risk assessment performed?: Yes Alcohol Intake: never Drug use: Never Substance use type: does not use Housing: house Do you feel safe at home: Yes Do you feel safe in your relationship?: Yes
[2024-10-30 10:57] VITALS: BP 157/69; PULSE 92; RESP 18; TEMP 36.8; O2SAT 99
[2024-10-30] MEDS: Lidocaine 2% Jelly 11 ML SYR (11:02)
[2024-10-30 11:10] LABS: Glucose Negative (Negative)
[2024-10-30 11:23] LABS: C & S Indicated? Yes; RBC >50 HPF (0-2)
--- NOTE | 2024-10-30 11:45 | NUR.NOTE ---
Pt will be getting DC'd per MD. Pts expressed concerns about antibiotic (Ciprofloxacin) selection d/t hearing of side effects for Covid-19. reports everyone in the government was taking azithromycin and it caused their ankle tendons to rupture. explained that this typically is safe for a 7 day regiment and would help with the bacteria that has been found in previous cultures of his. and pt indicated they would reach out to PCP to discuss antibiotic therapy. ER doctor told them he would prescribe the antibiotic and they could reach out to PCP or urology if they decide to change it. also requests MRI, MD informed them he has a UTI which could result in the bleeding/make it worse and that an MRI is not really indicated. They have declined CTs in the past d/t concerns of radiation. Vitals stable, pt afebrile and no concern for sepsis at this time. Shaggy Buenrostro, TISHN, RN Nursing Note:
[2024-10-30 11:46] VITALS: BP 179/64; PULSE 72; RESP 20; TEMP 37.5; O2SAT 98
--- NOTE | 2024-11-01 10:13 | NUR.NOTE ---
Nursing Note: The patients called to get the results of the patient's urine culture. I pulled it up and spelled out the organism that was found but I told her that the Cipro that he was started on the day he was here should be working because the organism is susceptible to it. The then notified me that he did not take the antibiotics because there were studies during covid that showed that Cipro causes liquidation of the tendons. The patient's herbalist told them that they would never put anyone on cipro because it liquifies the tendons of the people who take it, so the patient decided not to treat his UTI with Cipro.
--- NOTE | 2024-11-01 10:23 | NUR.NOTE ---
Nursing Note: Pt's called again asking questions about how many times the patient's urine had been cultured, she wanted the dates, and what the bacteria found were. I told her that every time a urine is sent to the lab, if there is something within the first urine assessment that indicates that it needs to be cultured, we send them for culture. I then gave her the dates of the cultures and what the bacteria found was.
== END 2024-10-30 12:02 | disposition home or self-care (01) ==
PROVIDERS: Emergency Provider Emergency Medicine
DX: N39.0 Urinary tract infection, site not specified (principal); I12.9 Hypertensive chronic kidney disease with stage 1 through stage 4 chronic kidney disease, or unspecified chronic kidney disease; N18.4 Chronic kidney disease, stage 4 (severe); Z86.73 Personal history of transient ischemic attack (TIA), and cerebral infarction without residual deficits
CPT/HCPCS: 87077; 99283; 81003; 81015; 87086; 87186

== ENCOUNTER 2024-11-01 20:06 | Inpatient (IN) | payer MEDICARE, SELFPAY ==
[2024-11-01] VITALS (41 sets, daily range): BP systolic 101–164; BP diastolic 42–76; PULSE 42–110; RESP 14–22; TEMP 37.9; O2SAT 87–100
--- NOTE | 2024-11-01 20:00 | RT.EKG_ITS ---
APPROVED REPORT Exam: Resting ECG Reason for Exam: sepsis Patient Location: E HR:94 bpm ECG Measurements Heart Rate 94 AXIS MT 220 P 32 QRSd 88 QRS 61 QT 297 T 88 QTc 371 Conclusion Sinus rhythm, rate 94 1st degree HB, MT interval 220ms PVCs No STEMI No significant changes from priors
--- NOTE | 2024-11-01 20:15 | DI.CT_ITS ---
Exam(s) CT CHEST/ABD/PEL WO EXAM: CT CHEST/ABD/PEL WO CLINICAL HISTORY: sepsis, LUQ pain, known UTI. TECHNIQUE: Imaging Protocol: Axial computed tomography images with coronal and sagittal reformatted images were created and reviewed. Computer aided detection (CAD) was utilized. CONTRAST MATERIAL: Noncontrast COMPARISON: No exams were available for comparison FINDINGS: CHEST: Pulmonary parenchyma: Mild basilar atelectasis. No consolidation. No dominant measurable mass. Tracheobronchial tree: No bronchiectasis. No mucous plugging.No bronchial wall thickening. Pleura: Tiny bilateral pleural effusions. No pneumothorax. Mediastinum: Within normal limits. Cardiovascular: The heart is mildly dilated. There is decreased attenuation of the blood in the heart relative to myocardium which may be seen with anemia. Coronary artery calcifications are seen. No pericardial effusion. Ascending aorta measures 3.7 minimal atherosclerotic changes. Bones: Unremarkable for age. No lytic or blastic lesions. No compression fractures. Soft tissues: Unremarkable. ABDOMEN and PELVIS: Exam mildly limited due to motion, lack of IV an oral contrast. Liver: Normal density. No suspicious mass. Gallbladder and biliary tract: No evidence of stones or wall thickening. No biliary dilatation. Pancreas: Normal density, no abnormal calcifications or inflammatory process. Spleen: Normal. Kidneys: Normal size, contour and axis. There are few tiny calcifications visible in the right kidney. There is mild right hydronephrosis. There is moderate left hydronephrosis. The ureters are dilated down to the level of the bladder. There is no evidence of obstructing stones. No suspicious masses seen. Adrenal glands: No masses seen. Aorta: Abdominal portion non-dilated. Lymph nodes: Within normal limits. Soft tissues: Unremarkable. Bladder: Rodríguez catheter in place. The bladder wall appears thickened. There is the bladder contents exhibit higher than urine attenuation which could indicate blood or pus. Evaluation for a mass is extremely limited due to lack of contrast. Bowel: No obstruction or bowel wall thickening. Large quantity of stool. Peritoneal cavity: No ascites. No focal collection. No mesenteric inflammatory response. No free air. Bones: Degenerative disc changes at L3-4. No compression fractures. Reproductive organs: Unremarkable for age. IMPRESSION: No acute abnormality in the chest. Marked bladder wall thickening could be secondary to cystitis. Rodríguez catheter is in place within the bladder. There is higher density material in the bladder lumen which could be represent hemorrhagic products or pus related to infection. Moderate left and mild right hydronephrosis without evidence of obstructing stone. Findings could be secondary to blood clot within bladder. Mass not excluded. The preliminary [facility] report was reviewed. RADIATION DOSE DELIVERED: Total DLP DATA REPOSITORY: All CT scans at this facility are submitted to the National Radiology Data Registry (NRDR) Dose Index Registry (DIR) with the [employer] ([employer]). RADIATION OPTIMIZATION: All CT scans at this facility use at least one of these dose optimization techniques: automated exposure control; mA and/or kV adjustment per patient size (includes targeted exams where dose is matched to clinical indication); or iterative reconstruction.
[2024-11-01 20:36] LABS: Abs Immature Grans 0.03 10^3/uL (0.0-0.06); Immature Grans % 0.3 %; MCH 21.8 pg (27.0-33.0); MCHC 31.3 % (32.0-36.0); MCV 70 fL (80-95); MPV 10.9 fL (8.0-11.0); Platelet Count 211 10^3/uL (130-400); RBC 1.88 10^6/uL (4.36-5.78); RDW 16.6 % (11.8-14.1); RDW-SD 42.4 fL; WBC 8.65 10^3/uL (4.4-10.8)
[2024-11-01 20:48] LABS: Glucose Negative (Negative)
[2024-11-01 20:49] LABS: HCT 13.1 % (40.0-50.0); HGB 4.1 g/dL (13.5-17.5)
[2024-11-01 20:51] LABS: INR 1.0 (0.9-1.1); Prothrombin Time 10.5 sec (9.1-11.1)
[2024-11-01 20:58] LABS: RBC >50 HPF (0-2)
[2024-11-01 21:05] LABS: ALT 19 U/L (16-63); AST 20 U/L (15-37); Albumin 2.5 g/dL (3.4-5.0); Alkaline Phosphatase 57 U/L (46-116); Anion Gap 15.4 mmol/L (3-11); BUN 53 mg/dL (7-18); Bilirubin, Total 0.3 mg/dL (0.2-1.0); CO2 17.6 mmol/L (21.0-32.0); Calcium 8.1 mg/dL (8.5-10.1); Chloride 99 mmol/L (98-107); Estimated GFR 21.53 (mL/min/1.73m2); Glucose 121 mg/dL (74-106); Hypochromasia 2+; Magnesium 2.0 mg/dL (1.8-2.4); Microcytosis 2+; Poikilocytes 1+; Potassium 4.1 mmol/L (3.5-5.1); Sodium 132 mmol/L (136-145); Total Protein 5.9 g/dL (6.4-8.2)
[2024-11-01 21:08] LABS: Procalcitonin 2.05 ng/mL
[2024-11-01 21:30] LABS: Troponin I 28 ng/L (<or=76)
[2024-11-01 21:58] LABS: Troponin I 26 ng/L (<or=76)
--- NOTE | 2024-11-01 22:26 | DI.[facility]_ITS ---
PROCEDURE INFORMATION: Exam: CT Chest Without Contrast; Diagnostic Exam date and time: 11/01/2024 9:15 PM Age: 69 years old Clinical indication: Other: Sepsis, luq pain, known UTI TECHNIQUE: Imaging protocol: Diagnostic computed tomography of the chest without contrast. 3D rendering (Not supervised by radiologist): MIP and/or 3D reconstructed images were created by the technologist. COMPARISON: No relevant prior studies available. FINDINGS: Lungs: 3 mm nodule in apical left lung. 3 mm inter fissural nodule anteroinferiorly in right lung. 2-3 mm nodule in right lower lobe along oblique fissure. Bibasilar subsegmental atelectasis. No dense parenchymal consolidation. Pleural spaces: No pneumothorax. Trace bilateral pleural effusions may be physiologic. Heart: Heart is top-normal in size. No pericardial effusion. Diminished attenuation of cardiac chambers in comparison to myocardium which can be seen with anemia. Correlate clinically. . Coronary arteries: Coronary artery calcification. Lymph nodes: No axillary or mediastinal adenopathy. Vasculature: Ascending aorta dilated to 3.7 cm. Bones/joints: The spine demonstrates mild degenerative changes at multiple levels. Soft tissues: Unremarkable. IMPRESSION: 1. Trace, nonspecific bilateral pleural effusions, possibly physiologic. 2. Coronary artery disease. 3. Thoracic aorta dilated to 3.7 cm in ascending portion 4. Minute lung nodules do not require follow-up unless patient considered at increased risk for developing lung cancer in which case surveillance CT could be performed in 12 months following 2017 Fleischner criteria. PROCEDURE INFORMATION: Exam: CT Abdomen And Pelvis Without Contrast Exam date and time: 11/01/2024 9:15 PM Age: 69 years old Clinical indication: Other: Sepsis, luq pain, known UTI TECHNIQUE: Imaging protocol: Computed tomography of the abdomen and pelvis without contrast. 3D rendering (Not supervised by radiologist): MIP and/or 3D reconstructed images were created by the technologist. COMPARISON: No relevant prior studies available. FINDINGS: Liver: Liver normal in size. No mass. Gallbladder and biliary ducts: Gallbladder contracted. No calcified gallstones or biliary ductal dilatation. Pancreas: Normal. No ductal dilation. Spleen: Normal. No splenomegaly. Adrenal glands: Normal. No mass. Kidneys and ureters: Punctate radiopacities in the right kidney could represent calculi. No radiopaque ureteric or left renal calculi identified. There is moderate left hydronephrosis and hydroureter. Mild right hydronephrosis. There is perinephric fat stranding and fascial thickening dorsally about right kidney. Stomach and bowel: Minimal gastric distension. No dilated segments of small bowel or colonic dilatation. There is a large amount of stool in distal colon. Appendix: No evidence of appendicitis. Intraperitoneal space: No free intraperitoneal gas or ascites. Vasculature: Ectatic calcified aorta normal in caliber. Lymph nodes: Unremarkable. No enlarged lymph nodes. Urinary bladder: Rodríguez catheter appears satisfactorily positioned in bladder lumen. Minute intraluminal gas bubbles, most likely introduced at the time of catheter placement or exchange. Bladder wall is thickened. Subtle perivesical fat stranding. Attenuation of urine is higher than simple fluid, (35-40 HU). Reproductive: Unremarkable as visualized. Bones/joints: Unremarkable. No acute fracture. Soft tissues: No concerning subcutaneous findings. IMPRESSION: 1. Bladder wall thickening and perivesical fat stranding consistent with the presence of cystitis. 2. Attenuation in bladder lumen higher than simple fluid which could be due to the presence of blood products, pus or mass. Further initial evaluation with bladder ultrasound is recommended. 3. Bilateral hydronephrosis and left hydroureter without obstructing renal or ureteric calculi demonstrated. Abnormality may be secondary to mass or blood clot in bladder lumen obstructing distal ureters. 4. Perinephric fat stranding about right kidney which could have multiple possible etiologies including scarring, 3rd spacing of fluid, inflammatory process /infection and/or obstructive uropathy. 5. Minute right renal calculi cannot be excluded. Dictated and Authenticated by: Stevo Macdonald MD. Orderin [facility] Lawrence Blackmon MD
--- NOTE | 2024-11-01 22:57 | W.ED.GENAD ---
Discharge Plan Disposition Patient Disposition: Admit to [facility] Condition: Stable Discharge Details Clinical Impression: Catheter-associated urinary tract infection, Elevated serum creatinine, Clot hematuria, Acute on chronic blood loss anemia, Conflict between congregational belief and healthcare recommendation Primary Care Provider: Unknown,Unknown ED Provider: Lorri Ellis Home Meds and New Rx's Prescriptions: No Action losartan 25 mg tablet 25 mg PO BID Patient Comments: TAKE ONE TABLET BY MOUTH TWICE A DAY aspirin 81 mg tablet,chewable 81 mg PO DAILY ciprofloxacin HCl 500 mg tablet 500 mg PO BID Qty: 13 0RF HPI General Mode of arrival: EMS. Date/Time Provider Initiated Documentation: 11/01/24 20:16. Limitations to Documentation: no limitations. Information obtained by: patient, family, EMS and old records reviewed. HPI Narrative: This is a 69-year-old male patient with a past medical history significant for hematuria and indwelling Rodríguez catheter, who is presenting for evaluation of left-sided abdominal pain. The patient has very few touch points with the healthcare system due to congregational beliefs. He was seen for gross hematuria by urology clinic over the winter, and was recommended to undergo imaging as his renal function would not permit cystogram. He did not follow-up in clinic, but was seen again in the spring for urinary retention and hematuria and had a Rodríguez catheter placed. The patient was seen in our emergency department 2 days ago and was diagnosed with a urinary tract infection. He was at that time noted also to have a low hemoglobin of 5. The patient was recommended to start on Cipro, declined transfusion, and was discharged per his wishes. The patient reports that he has not been taking the Cipro given concerns about tendon injury. He has been attempting to treat his urinary tract infection with methylene blue. He states that he flushes his catheter at home but has had's occasions where he was not able to entirely flush the clots out. He states that he was prompted to seek care today because the pain in his left sided abdomen was so concerning to him. EMS noted the patient to be febrile at home to 101, the patient declined Tylenol. He appeared quite pale and they provided him with a small amount of intravenous fluid to avoid excessive hemodilution. He was borderline tachycardic and hypotensive and they did activate him as a sepsis alert. Related Data Home Medications ?Medication ?Instructions ?Recorded ?Confirmed aspirin 81 mg chewable tablet 81 mg PO DAILY 06/19/24 10/30/24 Held on 10/30/24. Instructions: Changed by Provider losartan 25 mg tablet 25 mg PO BID 06/19/24 10/30/24 ciprofloxacin HCl 500 mg tablet 500 mg PO BID #13 tabs 10/30/24 Previous Rx's ?Medication ?Instructions ?Recorded ciprofloxacin HCl 500 mg tablet 500 mg PO BID #13 tabs 10/30/24 Allergies Allergy/AdvReac Type Severity Reaction Status Date / Time No Known Allergies Allergy Verified 10/30/24 11:14 General Stated Complaint: Fever KERRY: 2 Exam Narrative Exam Narrative: Gen: Awake and alert appears acutely ill HEENT: Conjunctival pallor noted, PERRL Neck: Supple Lungs: No apparent respiratory distress, normal respiratory effort. Lung sounds clear CV: The patient has strong distal pulses, heart rate has improved with fluids, regular rate and rhythm with frequent PVCs noted Abdomen: Non-distended, soft, nontender to palpation at this time without rigidity, rebound, or guarding : Rodríguez catheter in place with ravi hematuria/dark red urine MSK: Moves 4 extremities without apparent limitation in ROM Skin: Visualized skin without rashes, cyanosis. Neuro: No obvious focal deficits or facial asymmetry. Speaks in full, clear sentences. Psych: Appropriate for situation. Course Vital Signs Vital signs: Vital Signs Temperature 37.9 C H 11/01/24 20:08 Pulse 96 H 11/01/24 20:08 Respiratory Rate 20 11/01/24 20:08 Blood Pressure 142/52 H 11/01/24 20:08 Pulse Oximetry 94 11/01/24 20:08 Temperature 37.9 C H 11/01/24 20:13 Temperature Source Oral 11/01/24 20:13 Pulse 45 L 11/01/24 22:31 Pulse 95 H 11/01/24 22:31 Respiratory Rate 20 11/01/24 22:31 Blood Pressure 142/59 H 11/01/24 22:31 Blood Pressure Mean 83 11/01/24 22:31 Pulse Oximetry 99 11/01/24 22:30 Oxygen Delivery Method Room Air 11/01/24 20:13 Pain Level 1 11/01/24 20:08 Lab/Test Results Lab/Test Results: 11/01/24 20:02 Urine - Voided Urine Culture - Pending 11/01/24 20:45 Blood Blood Culture - Pending 11/01/24 20:37 Blood Blood Culture - Pending Laboratory Tests Range/Units 11/01/24 11/01/24 11/01/24 20:02 20:24 21:24 WBC (4.4-10.8) 10^3/uL 8.65 RBC (4.36-5.78) 10^6/uL 1.88 L Hgb (13.5-17.5) g/dL 4.1 L* Hct (40.0-50.0) % 13.1 L* MCV (80-95) fL 70 L MCH (27.0-33.0) pg 21.8 L MCHC (32.0-36.0) % 31.3 L RDW (11.8-14.1) % 16.6 H Plt Count (130-400) 10^3/uL 211 MPV (8.0-11.0) fL 10.9 Immature Gran % % 0.3 Neutrophils % % 85.4 Lymphocytes % % 3.0 Monocytes % % 10.9 Eosinophils % % 0.3 Basophils % % 0.1 Nucleated RBC % (0.0-0.3) % 0.0 Absolute Neutrophils (1.2-6.7) 10^3/uL 7.38 H Absolute Lymphocytes (1.2-3.4) 10^3/uL 0.26 L Absolute Monocytes (0.1-0.8) 10^3/uL 0.94 H Absolute Eosinophils (0.0-0.7) 10^3/uL 0.03 Absolute Basophils (0.0-0.2) 10^3/uL 0.01 RBC Morphology See Below Hypochromasia 2+ Poikilocytosis 1+ Microcytosis 2+ PT (9.1-11.1) sec 10.5 INR (0.9-1.1) 1.0 Sodium (136-145) mmol/L 132 L Potassium (3.5-5.1) mmol/L 4.1 Chloride (98-107) mmol/L 99 Carbon Dioxide (21.0-32.0) mmol/L 17.6 L Anion Gap (3-11) mmol/L 15.4 H BUN (7-18) mg/dL 53 H Creatinine (0.70-1.30) mg/dL 3.0 H Est GFR (CKD-EPI 2021) (mL/min/1.73m2) 21.53 Glucose (74-106) mg/dL 121 H Calcium (8.5-10.1) mg/dL 8.1 L Magnesium (1.8-2.4) mg/dL 2.0 Total Bilirubin (0.2-1.0) mg/dL 0.3 AST (15-37) U/L 20 ALT (16-63) U/L 19 Alkaline Phosphatase (46-116) U/L 57 Troponin I (<or=76) ng/L 28 26 Total Protein (6.4-8.2) g/dL 5.9 L Albumin (3.4-5.0) g/dL 2.5 L Procalcitonin ng/mL 2.05 Urine Color (Yellow) Carey Urine Clarity (Clear) Turbid Urine pH (5-8) 6.0 Ur Specific [place] (1.005-1.025) 1.020 Urine Protein (Neg-Trace) mg/dL >=300 H Urine Ketones (Negative) mg/dL Trace H Urine Blood (Negative) Large H Urine Nitrite (Negative) Positive H Urine Bilirubin (Negative) Moderate H Urine Urobilinogen (Up to 0.2) mg/dL 1.0 H Ur Leukocyte Esterase (Negative) Large H Urine RBC (0-2) HPF >50 H Urine WBC Not Applicable Ur Epithelial Cells Not Applicable Urine Crystals Not Applicable Urine Bacteria Not Applicable Urine Mucus Not Applicable Ur Culture Indicated? C&S Done As Ordered Urine Glucose (Negative) mg/dL Negative ABO/Rh O Positive Antibody Screen NEGATIVE Medical Decision Making This is a 69-year-old male patient presenting for evaluation of left-sided abdominal pain in the setting of an indwelling Rodríguez catheter and known urinary tract infection, gross hematuria, and significant anemia. My differential includes but is not limited to urinary tract infection, pyelonephritis, certainly could consider an infected stone. Considered worsening anemia, sepsis, bacteremia. Considered metabolic and electrolyte derangement, kidney injury, liver disease. Considered intra-abdominal pathology including malignancy. Considered ACS, arrhythmia, and intrathoracic abnormalities including pneumonia.. I had an extended shared decision-making conversation with this patient and his . At this time, the patient is amenable to proceeding with a medical workup. This includes EKG, which shows a sinus rhythm with a borderline first-degree heart block and multiple PVCs, but no STEMI. He is amenable to laboratory studies and we will obtain CBC, CMP, magnesium, troponin, INR, procalcitonin, urinalysis, and type and screen. He is also amenable to us obtaining a CT scan, given his history of renal dysfunction I will obtain a Noncon CT chest abdomen and pelvis. The patient does not want any medications at this time for management of his symptoms. I did review his culture data obtained from his visit 2 days ago, the patient is growing Citrobacter, which is susceptible to ceftriaxone. At this time the patient wants to hold on antibiosis but is amenable through discussion. -I reviewed the patient's laboratory studies, which are most notable for a hemoglobin of 4.1. No elevation white blood cell count, normal platelet count. INR 1.0. Metabolic panel notable for a BUN of 53 and a creatinine of 3 which is largely at the patient's baseline. No elevation in potassium or other significant electrolyte derangements. No evidence of kidney dysfunction, troponin is negative and without interval increase on 1 hour recheck. Procalcitonin is slightly elevated to 2. Urinalysis is frankly infectious with positive nitrites and leukocyte esterase, and a large amount of blood. This was sent for repeat culture. CT scan reviewed by myself, radiology notes perinephric and perivesicular stranding on the left with bilateral hydronephrosis without obstructing stones. There is a mass of some sort in the bladder which may represent malignancy or clot. I shared the findings with the patient and had a very ravi discussion with him regarding the severity of his illness. I feel that this patient would warrant admission for continuous bladder irrigation, intravenous antibiosis, and will require blood transfusion. The patient states that he realizes that he is at the edge of how bad things can get before he is at risk of . He states that he is amenable to admission, bladder irrigation, and ceftriaxone as his antibiotic. He request time to think about the blood transfusion, but is amenable to rediscussing this intervention with the hospitalist. I reached out to the hospitalist who is graciously accepted this patient for admission to their service. The patient remained hemodynamically improved with resolution of his tachycardia and no hypotension to suggest septic shock. Care was transferred to the hospitalist service without incident. Lorri Ellis MD PFSH All Active Problems (Updated 11/01/24 @ 23:09 by Lorri Ellis MD) Conflict between congregational belief and healthcare recommendation (Acute) Acute on chronic blood loss anemia (Acute) Acute UTI (Acute) Acute kidney injury (Acute) Acute urinary retention (Acute) Clot hematuria (Acute) Catheter-associated urinary tract infection (Acute) Elevated serum creatinine (Acute) Medical History Hypertension Social History Smoking/Tobacco Use Status: Never Smoking risk assessment performed?: Yes Alcohol Intake: never Drug use: Never Substance use type: does not use Housing: house Do you feel safe at home: Yes Do you feel safe in your relationship?: Yes
[2024-11-01] MEDS: cefTRIAXone 1 GM/50 ML BAG IVPB (23:13)
--- NOTE | 2024-11-01 23:22 | W.PM.HP.N ---
Date of service: 11/01/24 Time of Service: 23:22 Assessment and Plan Assessment and plan (1) Severe anemia: Status: Acute Assessment and plan: We discussed this is immediately life threatening, transfusion strongly recommended. He is thinking and praying about this. I did offer IV iron, despite some risk with acute infection and less certain benefit, but he declined this. I'm not sure following this with blood tests will pattern changer and repairer. He can change his mind and would order STAT transfusion any time, typed and crossed. (2) Catheter-associated urinary tract infection: Status: Acute Assessment and plan: Diagnosed 2 days ago but not yet treated. Citrobacter growing, senstive to ceftriaxone, he accepts this treatment. Alegre was just replaced last visit when this was diagnosed (3) Sepsis: Status: Acute Assessment and plan: With fever, elevated HR, RR in setting of acute urine infection, though anemia likely signficicant cause of pulse and RR abnormalities. Ceftriaxone as above. Blood culture pending. floor okay as BP stable, but with infection and severe anemia, wlll leave on tele. (4) Clot hematuria: Status: Acute Assessment and plan: This is chronic, source of blood clot. Urology consult in AM. Bladder irration today. He will consider repeat cystoscopy. We still don't have clear diagnosis of source. (5) Hypertension: Assessment and plan: Chronically poorly controlled, has had CVA and CKD related to this. He isn't taking losartan. Monitor this for now, encourage BP meds upon discharge if he survives. (6) DVT prophylaxis: Status: Acute Assessment and plan: bleeding. TEDS/SCDs (7) Discharge planning issues: Status: Acute Assessment and plan: He is at high risk of due to refusal of transfusion and very severe anemia. He confirms DNR. Intubation okay. Request palliative. Discussed his spiritual care. 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 He has had blood in his urine off/on for several months, but this bleeding over the past several weeks has lasted the longest. He was seen in May and 10/[address] Soto, and did have a cystoscopy by Dr. Hobbs at [place] in the spring. He was seen 10/30 [address] [facility] ED and diagnosed with UTI. His previous alegre had been removed earlier that week by Dr. Hobbs, and the alegre was replaced. He was prescribed cirpofloxacin but he never took it, is taking methylene blue from skin care technician. He had a hemoglobin of 5 at that point and declined transfusion. He had increased lower abdominal pain today, and when EMS arrive at his home today, his tempurature was 101. He describes general fatigue and lightheadedness. He doesn't feel fever or chills now. He has little appetite. Other than feeling a little cloudy, he feels his mental capacity is intact. He hasn't had chest pain or shortness of breath, but admits he can't do much physically. He has not had blood in stool or other bleeding. He again declined tranfusion today when recommended by Dr. Fabian. Review of Systems All systems reviewed & are unremarkable except as noted in HPI and below Constitutional Constitutional: Reports weight loss (45lbs in the past year) Eyes Eyes: Reports blurry vision (right, chronic) Neurologic Neurologic: Reports sensory deficit (left side partially numb since stroke) and Reports tremor(s) (mostly right hand for years) PFSH All Active Problems (Updated 11/01/24 @ 23:47 by Zach Campo) Discharge planning issues (Acute) DVT prophylaxis (Acute) Sepsis (Acute) Severe anemia (Acute) Conflict between christian belief and healthcare recommendation (Acute) Acute on chronic blood loss anemia (Acute) Acute UTI (Acute) Acute kidney injury (Acute) Acute urinary retention (Acute) Clot hematuria (Acute) Catheter-associated urinary tract infection (Acute) Elevated serum creatinine (Acute) Medical History (Updated 11/01/24 @ 23:47 by Zach Campo) CVA (cerebrovascular accident) describes residual left sided parasthesia and ataxia CKD (chronic kidney disease) stage 4, GFR 15-29 ml/min Hypertension Surgical History (Updated 11/01/24 @ 23:38 by Zach Campo) S/P cystoscopy Anjel/Kirk Social History (Updated 11/01/24 @ 23:39 by Zach Campo) Smoking/Tobacco Use Status: Never Smoking risk assessment performed?: Yes Alcohol Intake: never Drug use: Never Substance use type: does not use Household members: spouse Housing: house Special rosemary needs: Yes Details: [employer] Agree to transfusion: No Do you feel safe at home: Yes Do you feel safe in your relationship?: Yes Additional Social history: Lives in [place] with . Meds Allergies and Home Medications Allergies Allergy/AdvReac Type Severity Reaction Status Date / Time No Known Allergies Allergy Verified 10/30/24 11:14 Home Medications ?Medication ?Instructions ?Recorded ?Confirmed ?Type aspirin 81 mg chewable tablet 81 mg PO DAILY 06/19/24 10/30/24 History Held on 10/30/24. Instructions: Changed by Provider losartan 25 mg tablet 25 mg PO BID 06/19/24 10/30/24 History soybean, fermented PO 11/01/24 History Exam Narrative Exam Narrative: GEN: Gaunt, pale, lying in bed moveing slowly. Alert and oriented x 4, but does loose thoughts at times. Hard of hearing. He is pleasant and cooperative, gives linear history. HEENT: Head atraumatic. Conjunctiva pale, no icterus. PEERL, EOMI. no rhinorrhea. MMM, OP benign. Neck is supple with no masses or lymphadenopathy, trachea midline LUNGS: CTAB with normal effort CV: RRR with no murmurs, gallops, or rubs. ABD: active bowel sounds, soft, nondistended, mild suprapubic tendernes to palpation, no guarding/rebound. No masses. EXT: no cyanosis, clubbing, or edema MSK: No joint redness or swelling NEURO: CN 2-12 grossly intact. Normal movement of 4 extremities. Normal speech and coordination. Tremor right hand, worse with holding out. Describes slightly diminished sensation light touch left side. SKIN: No rashes or open wounds or pressure sores. PSYCH: normal mood and affect, able to voice clearly risk of with refusing care. Results Imaging Abdomen CT scan report/results: report reviewed CT scan - chest: report reviewed CT scan - pelvis: report reviewed Imaging Studies: CT C/A/P w/o: chest: 1. Trace, nonspecific bilateral pleural effusions, possibly physiologic. 2. Coronary artery disease. 3. Thoracic aorta dilated to 3.7 cm in ascending portion 4. Minute lung nodules do not require follow-up unless patient considered at increased risk for developing lung cancer in which case surveillance CT could be performed in 12 months following 2017 Fleischner criteria. A/P: 1. Bladder wall thickening and perivesical fat stranding consistent with the presence of cystitis. 2. Attenuation in bladder lumen higher than simple fluid which could be due to the presence of blood products, pus or mass. Further initial evaluation with bladder ultrasound is recommended. 3. Bilateral hydronephrosis and left hydroureter without obstructing renal or ureteric calculi demonstrated. Abnormality may be secondary to mass or blood clot in bladder lumen obstructing distal ureters. 4. Perinephric fat stranding about right kidney which could have multiple possible etiologies including scarring, 3rd spacing of fluid, inflammatory process /infection and/or obstructive uropathy. 5. Minute right renal calculi cannot be excluded. Labs 11/01/24 20:24 11/01/24 20:24 Labs: Laboratory Results - last 24 hr 11/01/24 11/01/24 11/01/24 20:02 20:24 21:24 WBC 8.65 RBC 1.88 L Hgb 4.1 L* Hct 13.1 L* MCV 70 L MCH 21.8 L MCHC 31.3 L RDW 16.6 H Plt Count 211 MPV 10.9 Immature Gran % 0.3 Neutrophils % 85.4 Lymphocytes % 3.0 Monocytes % 10.9 Eosinophils % 0.3 Basophils % 0.1 Nucleated RBC % 0.0 Absolute Neutrophils 7.38 H Absolute Lymphocytes 0.26 L Absolute Monocytes 0.94 H Absolute Eosinophils 0.03 Absolute Basophils 0.01 RBC Morphology See Below Hypochromasia 2+ Poikilocytosis 1+ Microcytosis 2+ PT 10.5 INR 1.0 Sodium 132 L Potassium 4.1 Chloride 99 Carbon Dioxide 17.6 L Anion Gap 15.4 H BUN 53 H Creatinine 3.0 H Est GFR (CKD-EPI 2020) 21.53 Glucose 121 H Calcium 8.1 L Magnesium 2.0 Total Bilirubin 0.3 AST 20 ALT 19 Alkaline Phosphatase 57 Troponin I 28 26 Total Protein 5.9 L Albumin 2.5 L Procalcitonin 2.05 Urine Color Carey Urine Clarity Turbid Urine pH 6.0 Ur Specific [place] 1.020 Urine Protein >=300 H Urine Ketones Trace H Urine Blood Large H Urine Nitrite Positive H Urine Bilirubin Moderate H Urine Urobilinogen 1.0 H Ur Leukocyte Esterase Large H Urine RBC >50 H Urine WBC Not Applicable Ur Epithelial Cells Not Applicable Urine Crystals Not Applicable Urine Bacteria Not Applicable Urine Mucus Not Applicable Ur Culture Indicated? C&S Done As Ordered Urine Glucose Negative ABO/Rh O Positive Antibody Screen NEGATIVE Last Vital Signs Temp 37.9 C H 11/01/24 20:13 Pulse 45 L 11/01/24 22:31 Resp 20 11/01/24 22:31 BP 142/59 H 11/01/24 22:31 Pulse Ox 99 11/01/24 22:30 Time Spent Time spent with Patient: 55-74 minutes Time was spent: preparing to see the patient(eg.review tests), obtaining and/or reviewing separately otained hiistory, ordering medications,tests, procedures, referring, communicating with other health md do resident urgent care, indepentently interpreting results, counseling the patient and care coordination
[2024-11-02] VITALS (14 sets, daily range): BP systolic 118–154; BP diastolic 54–90; PULSE 69–87; RESP 16–18; TEMP 35.8–36.5; O2SAT 95–100
--- NOTE | 2024-11-02 00:14 | W.PC.ACHO ---
Registration Status: REG ER Primary Language: Preferred Language: ED Information & Data Chief Complaint Fever 11/01/24 22:57 Triage Note PT has L UQ pain. PT has 11/01/24 20:08 fever with slight tachycardia. PT has hx of hbg of 5. PT has chronic alegre with bloody urine in bag Medical / Surgical History (Last Updated 11/01/24 @ 23:38 by Zach Campo) CVA (cerebrovascular accident) CKD (chronic kidney disease) stage 4, GFR 15-29 ml/min Hypertension (Last Updated 11/01/24 @ 23:38 by Zach Campo) S/P cystoscopy Most Recent Vital Signs Temperature 37.9 C H 11/01/24 20:13 Temperature Source Oral 11/01/24 20:13 Pulse 45 L 11/01/24 22:31 Pulse 95 H 11/01/24 22:31 Respiratory Rate 20 11/01/24 22:31 Blood Pressure 142/59 H 11/01/24 22:31 Blood Pressure Mean 83 11/01/24 22:31 Pulse Oximetry 99 11/01/24 22:30 Oxygen Delivery Method Room Air 11/01/24 20:13 Pain Level 1 11/01/24 20:08 Allergies No Known Allergies Allergy (Verified 10/30/24 11:14) IV IV Catheter Type [Left Saline Lock Antecubital] IV Catheter Gauge [Left 18 Antecubital] Diet Orders Category Date Time Status Nothing Per Oral [DIET] Nutrition 11/02/24 00:01 Ordered Diagnostics 11/01/24 11/01/24 11/01/24 Range/Units 21:24 20:24 20:02 WBC 8.65 (4.4-10.8) 10^3/uL RBC 1.88 L (4.36-5.78) 10^6/uL Hgb 4.1 L* (13.5-17.5) g/dL Hct 13.1 L* (40.0-50.0) % MCV 70 L (80-95) fL MCH 21.8 L (27.0-33.0) pg MCHC 31.3 L (32.0-36.0) % RDW 16.6 H (11.8-14.1) % Plt Count 211 (130-400) 10^3/uL MPV 10.9 (8.0-11.0) fL Immature Gran % 0.3 % Neutrophils % 85.4 % Lymphocytes % 3.0 % Monocytes % 10.9 % Eosinophils % 0.3 % Basophils % 0.1 % Nucleated RBC % 0.0 (0.0-0.3) % Absolute Neutrophils 7.38 H (1.2-6.7) 10^3/uL Absolute Lymphocytes 0.26 L (1.2-3.4) 10^3/uL Absolute Monocytes 0.94 H (0.1-0.8) 10^3/uL Absolute Eosinophils 0.03 (0.0-0.7) 10^3/uL Absolute Basophils 0.01 (0.0-0.2) 10^3/uL RBC Morphology See Below Hypochromasia 2+ Poikilocytosis 1+ Microcytosis 2+ PT 10.5 (9.1-11.1) sec INR 1.0 (0.9-1.1) Sodium 132 L (136-145) mmol/L Potassium 4.1 (3.5-5.1) mmol/L Chloride 99 (98-107) mmol/L Carbon Dioxide 17.6 L (21.0-32.0) mmol/L Anion Gap 15.4 H (3-11) mmol/L BUN 53 H (7-18) mg/dL Creatinine 3.0 H (0.70-1.30) mg/dL Est GFR (CKD-EPI 2020) 21.53 (mL/min/1.73m2) Glucose 121 H (74-106) mg/dL Calcium 8.1 L (8.5-10.1) mg/dL Magnesium 2.0 (1.8-2.4) mg/dL Total Bilirubin 0.3 (0.2-1.0) mg/dL AST 20 (15-37) U/L ALT 19 (16-63) U/L Alkaline Phosphatase 57 (46-116) U/L Troponin I 26 28 (<or=76) ng/L Total Protein 5.9 L (6.4-8.2) g/dL Albumin 2.5 L (3.4-5.0) g/dL Procalcitonin 2.05 ng/mL Urine Color Carey (Yellow) Urine Clarity Turbid (Clear) Urine pH 6.0 (5-8) Ur Specific [place] 1.020 (1.005-1.025) Urine Protein >=300 H (Neg-Trace) mg/dL Urine Ketones Trace H (Negative) mg/dL Urine Blood Large H (Negative) Urine Nitrite Positive H (Negative) Urine Bilirubin Moderate H (Negative) Urine Urobilinogen 1.0 H (Up to 0.2) mg/dL Ur Leukocyte Esterase Large H (Negative) Urine RBC >50 H (0-2) HPF Urine WBC Not Applicable Ur Epithelial Cells Not Applicable Urine Crystals Not Applicable Urine Bacteria Not Applicable Urine Mucus Not Applicable Ur Culture Indicated? C&S Done As Ordered Urine Glucose Negative (Negative) mg/dL Path Cons Comment Pending ABO/Rh O Positive Antibody Screen NEGATIVE 11/01/24 20:02 Urine Culture - Pending Urine - Voided 11/01/24 20:45 Blood Culture - Pending Blood 11/01/24 20:37 Blood Culture - Pending Blood Intake and Output - 24 Hour Total 11/01/24 19:58 thru 11/01/24 23:31 Output Total 500 Balance -500 Weight 63.503 kg Output: Urine 500 Falls Risk Assessment History of Falls Previous History 11/01/24 20:13 Contributing Factors Impairments 11/01/24 20:13 Ambulatory Aids Independent 11/01/24 20:13 Tubes/Lines W/no contributing factors 11/01/24 20:13 Gait Evaluation W/no contributing factors 11/01/24 20:13 Cognition No cognitive impairment 11/01/24 20:13 Fall Total Score 38 11/01/24 20:13 Level of Risk Moderate Risk 11/01/24 20:13 Problems (Last Updated 11/01/24 @ 23:38 by Zach Campo) Discharge planning issues (Acute) DVT prophylaxis (Acute) Sepsis (Acute) Severe anemia (Acute) Clot hematuria (Acute) Catheter-associated urinary tract infection (Acute) v v v v v v v v v Sending and/or Receiving Nurses: Please use comment section below to note any information pertinent to the patient hand-off not included above. Information / Comments: Report taken from VP DIRECTOR OF CREATIVE STRATEGY Adrian., patient came in tachycardic and feverish and weakness. AO x 3. pale looking, Has Hgb of 4.1, refused blood transfusion at this time. 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 Report received from:
[2024-11-02 00:24] LABS: Troponin I 29 ng/L (<or=76)
[2024-11-02] MEDS: DEXTROSE 5%-LACTATED RINGERS 1,000 ML 75 ML IV ×2 (00:33→23:18)
[2024-11-02] MEDS: Normal Saline Flush 10 ML SYR IVP ×3 (00:34→23:34)
[2024-11-02 06:50] LABS: Abs Immature Grans 0.01 10^3/uL (0.0-0.06); Immature Grans % 0.2 %; MCH 21.4 pg (27.0-33.0); MCHC 30.8 % (32.0-36.0); MCV 70 fL (80-95); MPV 10.8 fL (8.0-11.0); Platelet Count 209 10^3/uL (130-400); RBC 1.87 10^6/uL (4.36-5.78); RDW 16.8 % (11.8-14.1); RDW-SD 42.9 fL; WBC 5.62 10^3/uL (4.4-10.8)
[2024-11-02 07:07] LABS: Anion Gap 11.9 mmol/L (3-11); BUN 53 mg/dL (7-18); CO2 20.1 mmol/L (21.0-32.0); Calcium 8.5 mg/dL (8.5-10.1); Chloride 102 mmol/L (98-107); Estimated GFR 23.39 (mL/min/1.73m2); Glucose 128 mg/dL (74-106); Potassium 4.0 mmol/L (3.5-5.1); Sodium 134 mmol/L (136-145)
[2024-11-02 07:09] LABS: HCT 13.0 % (40.0-50.0); HGB 4.0 g/dL (13.5-17.5); Hypochromasia 1+; Microcytosis 2+
[2024-11-02 07:10] LABS: Poikilocytes 2+
--- NOTE | 2024-11-02 11:38 | CHAPLAIN ---
Jorje was in bed, laying flat, and appeared to be sleeping. The other person in the room, I believe it's his exwife, Juliane, had spent the night. 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 [facility] and [facility] will not. She was on her phone contacting the ones that will. A direct blood donation means that the you receive the blood directly from a known donor, Juliane explained. She said that patients often get organ donations from direct donors, so it makes sense to them that blood donation could be done the same way. Juliane asked that I pray for Jorje for a miracle or intervention from God to save him. Juliane told me that they are Christians, washed in the blood, with or Jabier Nba Sequeira right here.
[2024-11-02] MEDS: IRON SUCROSE COMPLEX 400 MG in Normal Saline 250 ML 100 MG IVPB (13:58)
--- NOTE | 2024-11-02 14:02 | PGE_ITS ---
Date of Service Date of service: 11/02/24 Time of Service: 14:02 Assessment and Plan Assessment and plan (1) Severe anemia: Status: Acute Assessment and plan: We discussed this is immediately life threatening, transfusion strongly recommended. He is thinking and praying about this. I did offer IV iron, despite some risk with acute infection and less certain benefit, but he declined this. I'm not sure following this with blood tests will drying rack changer. He can change his mind and would order STAT transfusion any time, typed and crossed. 11/02/24 Had a very long discussion with both the pt and family. I believe that the pt is in imminent risk of passing away if he does not get transfusions. Pt is not opposed to transfusion per se, but does not want covid tainted blood. As a temporizing measure, I will start venofer and have also recommended procrit. I did reach out to Dr Soto (urology) for recommendations about TXA. Per my brief literature search, TXA is not usually given, but this is an unusual situation. Have yet to hear from Dr Soto. Pt's hematuria does seemed to have slowed down but the pt has also dropped his hg from 8 on 10/03/24 to 4 as of 11/02/24. Will stop all labs as the pt needs to keep all the blood he does have. IF it is felt necessary to draw blood, would use pediatric tubes only (2) Catheter-associated urinary tract infection: Status: Acute Assessment and plan: Diagnosed 2 days ago but not yet treated. Citrobacter growing, senstive to ceftriaxone, he accepts this treatment. Alegre was just replaced last visit when this was diagnosed 11/02/24 WBC is 5.62. Continue with current abx (3) Sepsis: Status: Acute Assessment and plan: With fever, elevated HR, RR in setting of acute urine infection, though anemia likely signficicant cause of pulse and RR abnormalities. Ceftriaxone as above. Blood culture pending. floor okay as BP stable, but with infection and severe anemia, wlll leave on tele. 11/02/24 As mentioned above, hard to tell how much of his vital abnormalities are related to sepsis, or just an appropriate physiological response to severe anemia (4) Clot hematuria: Status: Acute Assessment and plan: This is chronic, source of blood clot. Urology consult in AM. Bladder irration today. He will consider repeat cystoscopy. We still don't have clear diagnosis of source. 11/02/24 POC d/w Dr Soto. No procedures planned 2/2 severe anemia and associated anesthesia risk. (5) Hypertension: Assessment and plan: Chronically poorly controlled, has had CVA and CKD related to this. He isn't taking losartan. Monitor this for now, encourage BP meds upon discharge if he survives. 11/02/24 Will allow for permissive htn as this is a response to anemia. (6) DVT prophylaxis: Status: Acute Assessment and plan: bleeding. TEDS/SCDs (7) Discharge planning issues: Status: Acute Assessment and plan: He is at high risk of due to refusal of transfusion and very severe anemia. He confirms DNR. Intubation okay. Request palliative. Discussed his spiritual care. 11/02/24 Plan for an ethics consultation in am WOULD NOT DRAW ANYMORE BLOOD. Subjective Subjective Interval history since last seen: PT seen and examined in his room. 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 I have also reached out to [facility] in [facility] as the family was under the idea that this facility would allow direct transfusions. Per my d/w transportation attendant, this is a service that they do not provide. I was very clear in that it is my opinon, Mr Mederos will pass away if he does not get a blood transfusion. Exam Narrative Exam Narrative: GEN: Gaunt, pale, lying in bed moveing slowly. Alert and oriented x 4, but does loose thoughts at times. Hard of hearing. He is pleasant and cooperative, gives linear history. HEENT: Head atraumatic. Conjunctiva pale, no icterus. PEERL, EOMI. no rhinorrhea. MMM, OP benign. Neck is supple with no masses or lymphadenopathy, trachea midline LUNGS: CTAB with normal effort CV: RRR with no murmurs, gallops, or rubs. ABD: active bowel sounds, soft, nondistended, mild suprapubic tendernes to palpation, no guarding/rebound. No masses. EXT: no cyanosis, clubbing, or edema MSK: No joint redness or swelling NEURO: CN 2-12 grossly intact. Normal movement of 4 extremities. Normal speech and coordination. Tremor right hand, worse with holding out. Describes slightly diminished sensation light touch left side. SKIN: No rashes or open wounds or pressure sores. PSYCH: normal mood and affect, able to voice clearly risk of with refusing care. : alegre in place with pink tinged urine Objective Last Vital Signs Temp 36.5 C 11/02/24 11:09 Pulse 87 11/02/24 11:09 Resp 16 11/02/24 11:09 BP 147/83 H 11/02/24 11:09 Pulse Ox 98 11/02/24 11:09 Laboratory Results - last 24 hr 11/01/24 11/01/24 11/01/24 20:02 20:24 21:24 WBC 8.65 RBC 1.88 L Hgb 4.1 L* Hct 13.1 L* MCV 70 L MCH 21.8 L MCHC 31.3 L RDW 16.6 H Plt Count 211 MPV 10.9 Immature Gran % 0.3 Neutrophils % 85.4 Lymphocytes % 3.0 Monocytes % 10.9 Eosinophils % 0.3 Basophils % 0.1 Nucleated RBC % 0.0 Absolute Neutrophils 7.38 H Absolute Lymphocytes 0.26 L Absolute Monocytes 0.94 H Absolute Eosinophils 0.03 Absolute Basophils 0.01 RBC Morphology See Below Hypochromasia 2+ Poikilocytosis 1+ Microcytosis 2+ PT 10.5 INR 1.0 Sodium 132 L Potassium 4.1 Chloride 99 Carbon Dioxide 17.6 L Anion Gap 15.4 H BUN 53 H Creatinine 3.0 H Est GFR (CKD-EPI 2020) 21.53 Glucose 121 H Calcium 8.1 L Magnesium 2.0 Total Bilirubin 0.3 AST 20 ALT 19 Alkaline Phosphatase 57 Troponin I 28 26 Total Protein 5.9 L Albumin 2.5 L Procalcitonin 2.05 Urine Color Carey Urine Clarity Turbid Urine pH 6.0 Ur Specific [place] 1.020 Urine Protein >=300 H Urine Ketones Trace H Urine Blood Large H Urine Nitrite Positive H Urine Bilirubin Moderate H Urine Urobilinogen 1.0 H Ur Leukocyte Esterase Large H Urine RBC >50 H Urine WBC Not Applicable Ur Epithelial Cells Not Applicable Urine Crystals Not Applicable Urine Bacteria Not Applicable Urine Mucus Not Applicable Ur Culture Indicated? C&S Done As Ordered Urine Glucose Negative ABO/Rh O Positive Antibody Screen NEGATIVE 11/01/24 11/02/24 23:24 06:40 WBC 5.62 RBC 1.87 L Hgb 4.0 L* Hct 13.0 L* MCV 70 L MCH 21.4 L MCHC 30.8 L RDW 16.8 H Plt Count 209 MPV 10.8 Immature Gran % 0.2 Neutrophils % 71.6 Lymphocytes % 10.0 Monocytes % 17.1 Eosinophils % 0.9 Basophils % 0.2 Nucleated RBC % 0.0 Absolute Neutrophils 4.03 Absolute Lymphocytes 0.56 L Absolute Monocytes 0.96 H Absolute Eosinophils 0.05 Absolute Basophils 0.01 RBC Morphology See Below Hypochromasia 1+ Poikilocytosis 2+ Microcytosis 2+ PT INR Sodium 134 L Potassium 4.0 Chloride 102 Carbon Dioxide 20.1 L Anion Gap 11.9 H BUN 53 H Creatinine 2.8 H Est GFR (CKD-EPI 2020) 23.39 Glucose 128 H Calcium 8.5 Magnesium Total Bilirubin AST ALT Alkaline Phosphatase Troponin I 29 Total Protein Albumin Procalcitonin Urine Color Urine Clarity Urine pH Ur Specific [place] Urine Protein Urine Ketones Urine Blood Urine Nitrite Urine Bilirubin Urine Urobilinogen Ur Leukocyte Esterase Urine RBC Urine WBC Ur Epithelial Cells Urine Crystals Urine Bacteria Urine Mucus Ur Culture Indicated? Urine Glucose ABO/Rh Antibody Screen Time Spent with Patient Time Spent with Patient: 25-34 minutes Time was spent: preparing to see the patient(eg.review tests), obtaining and/or reviewing separately otained hiistory, ordering medications,tests, procedures, referring, communicating with other health medicare interviewer, indepentently interpreting results, counseling the patient and care coordination
--- NOTE | 2024-11-02 16:25 | W.UROLOGYCON ---
Date of service: 11/02/24 Time of Service: 14:30 Assessment and Plan Assessment and plan (1) Acute UTI: Status: Acute (2) Anemia: Status: Inactive (3) Hematuria: Status: Acute Assessment and plan: Unfortunately, I have nothing to offer this gentleman at our facility. We would generally recommend cystoscopy, clot evacuation, fulguration or transurethral resection of any visible tumor. We generally recommend a retrograde pyelogram to evaluate his hydronephrosis. He is certainly not a surgical candidate at our facility given his severe anemia and his lack of medical care over the years. In fact, when he had seen Dr. Anjel mckeon in [place], she had referred him to a larger center in [facility] for cystoscopy and bladder biopsy/resection after she did an office cystoscopy. He was told at that point that he would not be a surgical candidate at a critical access hospital. I do not imagine that he would actually be a candidate for transfer to another facility unless he changes his mind and is agreeable to transfusion. History of Present Illness History of Present Illness Chief Complaint: Hematuria Narrative: This is a 69-year-old gentleman who has been seen twice previously by me over the past 4 to 5 months. He has been seen by my urology colleague over in [place] as well. He has had very little medical care over the past 50 years. He presented to the emergency department initially with gross hematuria. He was referred to me at first. His serum creatinine was high. We had no idea if this was his baseline or not. We recommended imaging studies followed by a cystoscopy and retrograde pyelogram when he was medically stable. At his baseline, he had some significant untreated hypertension that was not controlled so he was not going to be an anesthesia candidate at our facility until he had medical evaluation as well. He was reluctant to have a CT scan because of concerns about radiation exposure. He preferred an MRI urogram which is not offered at our facility. He then went to see Dr. Anjel mckeon in [place]. She likewise was not able to offer an MRI urogram but she did a cystoscopy in her office. 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 She recommended that these areas be biopsied/resected/cauterized. She also indicated that he is not a surgical candidate at a critical access hospital. She referred him to a practice in hospital in [facility]. As far as I am aware, he has never gone there for an evaluation. He then returned to our emergency department with hematuria and clot retention. The ER staff was not able to place a catheter so I went down to place the catheter and hand irrigate a large amount of clot from his bladder. He refused admission at that time. He had the catheter removed at Dr. Hobbs's office and he remained catheter free for a few weeks. He returned to our emergency department yesterday with abdominal pain. He is found to be severely anemic but is not agreeable to transfusion. A Rodríguez catheter was replaced and continuous bladder irrigation has been running. He was seen in the emergency department just 2 days ago and was found to have a urinary tract infection. The Rodríguez catheter was replaced at that time. He has not taken his antibiotic that was prescribed at the ER visit. He has been interested in being evaluated at [facility] in [facility]. He believes that that facility will be able to perform direct transfusions and have access to technology not available at our facility. [facility] All Active Problems (Updated 11/03/24 @ 00:01 by FRED GONZALES) Hematuria (Acute) Discharge planning issues (Acute) DVT prophylaxis (Acute) Sepsis (Acute) Severe anemia (Acute) Conflict between gnosticist belief and healthcare recommendation (Acute) Acute on chronic blood loss anemia (Acute) Acute UTI (Acute) Clot hematuria (Acute) Catheter-associated urinary tract infection (Acute) Elevated serum creatinine (Acute) Medical History (Updated 11/03/24 @ 00:01 by FRED GONZALES) CVA (cerebrovascular accident) describes residual left sided parasthesia and ataxia CKD (chronic kidney disease) stage 4, GFR 15-29 ml/min Hypertension Surgical History (Updated 11/01/24 @ 23:38 by Zach Campo) S/P cystoscopy Anjel/Kirk Social History (Updated 11/01/24 @ 23:39 by Zach Campo) Smoking/Tobacco Use Status: Never Smoking risk assessment performed?: Yes Alcohol Intake: never Drug use: Never Substance use type: does not use Household members: spouse Housing: house Special rosemary needs: Yes Details: [employer] Agree to transfusion: No Do you feel safe at home: Yes Do you feel safe in your relationship?: Yes Additional Social history: Lives in [place] with . Exam Narrative Exam Narrative: He appears thin and quite pale His vital signs are documented elsewhere His abdomen is soft with no mass He is awake and alert His continuous bladder irrigation is draining pink-tinged but transparent outflow Results Last Vital Signs Temp 36.2 C L 11/02/24 15:04 Pulse 69 11/02/24 15:04 Resp 16 11/02/24 15:04 BP 122/65 11/02/24 15:04 Pulse Ox 97 11/02/24 15:04 Labs 11/02/24 06:40 11/02/24 06:40 Labs: Laboratory Results - last 24 hr 11/01/24 11/01/24 11/01/24 20:02 20:24 21:24 WBC 8.65 RBC 1.88 L Hgb 4.1 L* Hct 13.1 L* MCV 70 L MCH 21.8 L MCHC 31.3 L RDW 16.6 H Plt Count 211 MPV 10.9 Immature Gran % 0.3 Neutrophils % 85.4 Lymphocytes % 3.0 Monocytes % 10.9 Eosinophils % 0.3 Basophils % 0.1 Nucleated RBC % 0.0 Absolute Neutrophils 7.38 H Absolute Lymphocytes 0.26 L Absolute Monocytes 0.94 H Absolute Eosinophils 0.03 Absolute Basophils 0.01 RBC Morphology See Below Hypochromasia 2+ Poikilocytosis 1+ Microcytosis 2+ PT 10.5 INR 1.0 Sodium 132 L Potassium 4.1 Chloride 99 Carbon Dioxide 17.6 L Anion Gap 15.4 H BUN 53 H Creatinine 3.0 H Est GFR (CKD-EPI 2020) 21.53 Glucose 121 H Calcium 8.1 L Magnesium 2.0 Total Bilirubin 0.3 AST 20 ALT 19 Alkaline Phosphatase 57 Troponin I 28 26 Total Protein 5.9 L Albumin 2.5 L Procalcitonin 2.05 Urine Color Carey Urine Clarity Turbid Urine pH 6.0 Ur Specific [place] 1.020 Urine Protein >=300 H Urine Ketones Trace H Urine Blood Large H Urine Nitrite Positive H Urine Bilirubin Moderate H Urine Urobilinogen 1.0 H Ur Leukocyte Esterase Large H Urine RBC >50 H Urine WBC Not Applicable Ur Epithelial Cells Not Applicable Urine Crystals Not Applicable Urine Bacteria Not Applicable Urine Mucus Not Applicable Ur Culture Indicated? C&S Done As Ordered Urine Glucose Negative ABO/Rh O Positive Antibody Screen NEGATIVE 11/01/24 11/02/24 23:24 06:40 WBC 5.62 RBC 1.87 L Hgb 4.0 L* Hct 13.0 L* MCV 70 L MCH 21.4 L MCHC 30.8 L RDW 16.8 H Plt Count 209 MPV 10.8 Immature Gran % 0.2 Neutrophils % 71.6 Lymphocytes % 10.0 Monocytes % 17.1 Eosinophils % 0.9 Basophils % 0.2 Nucleated RBC % 0.0 Absolute Neutrophils 4.03 Absolute Lymphocytes 0.56 L Absolute Monocytes 0.96 H Absolute Eosinophils 0.05 Absolute Basophils 0.01 RBC Morphology See Below Hypochromasia 1+ Poikilocytosis 2+ Microcytosis 2+ PT INR Sodium 134 L Potassium 4.0 Chloride 102 Carbon Dioxide 20.1 L Anion Gap 11.9 H BUN 53 H Creatinine 2.8 H Est GFR (CKD-EPI 2020) 23.39 Glucose 128 H Calcium 8.5 Magnesium Total Bilirubin AST ALT Alkaline Phosphatase Troponin I 29 Total Protein Albumin Procalcitonin Urine Color Urine Clarity Urine pH Ur Specific [place] Urine Protein Urine Ketones Urine Blood Urine Nitrite Urine Bilirubin Urine Urobilinogen Ur Leukocyte Esterase Urine RBC Urine WBC Ur Epithelial Cells Urine Crystals Urine Bacteria Urine Mucus Ur Culture Indicated? Urine Glucose ABO/Rh Antibody Screen
--- NOTE | 2024-11-02 18:07 | INITIAL_ITS ---
Date of service: 11/02/24 Time of Service: 18:07 Care Management Initial Assmt Initial Assessment Reason for Hospitalization: Sepsis, UTI Functional Status/Living Situation Patient Presentation: Jorje was awake and sitting up in bed with the HOB elevated when CM met with him. To engage in conversation, he uses a sound amplifier with head phones to assist with hearing. He was accompanied by his former , Juliane, and two family friends. Jorje reported that his permanent address is in [facility], but he has been staying in [place] with Juliane. He appears critically ill, with a hgb 4.0 and he verbalizes clear understanding that he is at imminent risk of passing away without a blood transfusion. When CM asked, he stated yes I know, and I accept these risks. Jorje shared with CM that he wouldn't want CPR but added that he would want a wiff of air, but nothing more. Towards the end of the conversation, Jorje appeared to have reached his limit with talking. Juliane assisted by adjusting the bed for so he could lay flat, which she reports has been helpful the last few days. He is currently listed as a DNR, CM reviewed this conversation with Dr. Adrian, as it may be beneficial to revisit code status based on Jorje's expressed wishes. CM will follow. Town of Residence: Has a home in [facility], but has been staying in [facility] with Juliane Resides with: Alone Significant Other/Family: Local Caregiver/Guardian: Has been staying with his former Natural Supports: Supportive family and friends Instrumental Activities of Daily Living (ADLs): Requires support Physical Functioning/Mobility Assistive Device: None Advance Directives Advance Directives: Do you have an Advance Directive: AD On File at [facility]: N 05/16/24, 08:36 Date Asked 11/01/24 11/01/24, 21:26 AD Date Reviewed COLST On File at [facility] COLST Date Scanned Code Status Resuscitation Status DNR Insurance Coverage/Financial Issues Insurance: Medicare Part A & B - [id number] Care Team Visit Care Team Role Provider Type Unknown Unknown Primary Care Provider STAFF PHYSICIAN Jean-Pierre Soto MD Other Providers [facility] STAFF PHYSICIAN Lorri Ellis MD Emergency Provider [facility] STAFF PHYSICIAN Zach Campo Admit Provider [facility] STAFF PHYSICIAN Attending Provider Discharge Potential Discharge Needs: PCP F/U Appt Anticipated Barriers to Discharge: None Identified Patient/Family Education Needs: Review discharge instructions, discuss Ask Me Three Plan: Poor prognosis at this time. CM will continue to follow and support discharge planning consideration when better known. Social Determinants of Health Screening Social Determinants of health last assessed in clinic: 11/02/24 Will the Patient Participate in the Screening?: Yes Do you worry about having a steady place to live?: yes What is your living situation today?: I have housing today, but am worried about losing it Problems where you live: no known problems In the past 12 months, have you had to go without electric, gas, oil or water in your home?: no 1. Within the past 12 months, we worried whether our food would run out before w e got money to buy more.: Never true 2. Within the past 12 months, the food we bought just didn't last and we didn't have money to get more.: Never true Has lack of transportation kept you from medical appointments or from doing things needed for daily living?: no Has anyone in your life made you feel unsafe or unsupported?: no How hard is it for you to pay for the very basics like food, housing, medical care, and heating? Would you say it is:: Not hard at all Do you want help finding or keeping work or a job?: I do not need or want help If for any reason you need help with day-to-day activities such as bathing, preparing meals, shopping, managing finances, etc., do you get the help you need?: I don?t need any help How often do you feel lonely or isolated from those around you?: Never Do you speak a language other than Belgian at home?: No Does the patient want assistance with any of the above?: No Health Related Social Needs Health related social needs: housing instability, housed, with risk of homelessness (Z59.811) Health related social needs details: N/A PFSH All Active Problems (Updated 11/02/24 @ 16:27 by Jean-Pierre Soto MD) Hematuria (Acute) Discharge planning issues (Acute) DVT prophylaxis (Acute) Sepsis (Acute) Severe anemia (Acute) Conflict between anglican belief and healthcare recommendation (Acute) Acute on chronic blood loss anemia (Acute) Acute UTI (Acute) Acute kidney injury (Acute) Acute urinary retention (Acute) Clot hematuria (Acute) Catheter-associated urinary tract infection (Acute) Elevated serum creatinine (Acute) Medical History (Updated 11/02/24 @ 16:27 by Jean-Pierre Soto MD) CVA (cerebrovascular accident) describes residual left sided parasthesia and ataxia CKD (chronic kidney disease) stage 4, GFR 15-29 ml/min Hypertension Surgical History (Updated 11/01/24 @ 23:38 by Zach Campo) S/P cystoscopy Anjel/Kirk Social History (Updated 11/01/24 @ 23:39 by Zach Campo) Smoking/Tobacco Use Status: Never Smoking risk assessment performed?: Yes Alcohol Intake: never Drug use: Never Substance use type: does not use Household members: spouse Housing: house Special rosemary needs: Yes Details: [employer] Agree to transfusion: No Do you feel safe at home: Yes Do you feel safe in your relationship?: Yes Additional Social history: Lives in [place] with .
[2024-11-02] MEDS: cefTRIAXone 1 GM/50 ML BAG IVPB (23:26)
[2024-11-03] VITALS (24 sets, daily range): BP systolic 128–171; BP diastolic 72–97; PULSE 68–91; RESP 15–20; TEMP 35.9–37; O2SAT 95–100
[2024-11-03] MEDS: Acetaminophen 325 MG TAB 650 MG PO ×2 (00:08→01:42)
[2024-11-03 07:21] LABS: MCH 23.7 pg (27.0-33.0); MCHC 31.9 % (32.0-36.0); MCV 74 fL (80-95); MPV 10.5 fL (8.0-11.0); Platelet Count 232 10^3/uL (130-400); RBC 2.45 10^6/uL (4.36-5.78); RDW 18.9 % (11.8-14.1); RDW-SD 51.3 fL; WBC 4.08 10^3/uL (4.4-10.8)
[2024-11-03 07:53] LABS: HGB 5.8 g/dL (13.5-17.5)
[2024-11-03 07:54] LABS: HCT 18.2 % (40.0-50.0)
--- NOTE | 2024-11-03 09:24 | PDOC.CMPRO ---
Date of service: 11/03/24 Time of Service: 09:24 Care Management Progress Note Progress Note Text Progress Note Text: Jorje was awake and lying in bed when CM met with him; Juliane was present at the bedside. Jorje is now open to further medical workup and treatment, and expressed eagerness to meet with Dr. Soto to discuss next steps, as discussed with Dr. Adrian. CM notified Meredith at Dr. Soto's office to help facilitate consult. In addition, Clementine from Palliative met with Jorje to discuss his goals of care and reported to CM that it is her understanding that Jorje would be agreeable to transfer to a tertiary hospital if medically indicated, though he would prefer to remain local. CM will continue to follow. Discharge Potential Discharge Needs: Consult Consult Services Needed: Palliative and Other (Urology ) Anticipated Barriers to Discharge: Medical Status Patient/Family Education Needs: Review discharge instructions, discuss Ask Me Three Transportation: Other (Dependent on discharge plan and mobility at the time of dispo) Plan: Patient requires further medical work up and is planning to meet with Dr. Soto again to discuss next steps? [facility] vs transfer to a tertiary hospital? PT evaluation may be helpful to support discharge planning needs (when medically appropriate.) Discharge planning continues, CM will follow. Social Determinants of Health Screening Social Determinants of health last assessed in clinic: 11/03/24 Will the Patient Participate in the Screening?: Yes Do you worry about having a steady place to live?: yes What is your living situation today?: I have housing today, but am worried about losing it Problems where you live: no known problems In the past 12 months, have you had to go without electric, gas, oil or water in your home?: no 1. Within the past 12 months, we worried whether our food would run out before we got money to buy more.: Never true 2. Within the past 12 months, the food we bought just didn't last and we didn't have money to get more.: Never true Has lack of transportation kept you from medical appointments or from doing things needed for daily living?: no Has anyone in your life made you feel unsafe or unsupported?: no How hard is it for you to pay for the very basics like food, housing, medical care, and heating? Would you say it is:: Not hard at all Do you want help finding or keeping work or a job?: I do not need or want help If for any reason you need help with day-to-day activities such as bathing, preparing meals, shopping, managing finances, etc., do you get the help you need?: I don?t need any help How often do you feel lonely or isolated from those around you?: Never Do you speak a language other than Tunisian at home?: No Does the patient want assistance with any of the above?: No Health Related Social Needs Health related social needs: housing instability, housed, with risk of homelessness (Z59.811) Health related social needs details: N/A
--- NOTE | 2024-11-03 10:44 | W.PALLCONSUL ---
Date of service: 11/03/24 Time of Service: 10:24 History of Present Illness Narrative: Jorje was seen in his room with Juliane present. Palliative was initially consulted yesterday when he was declining blood transfusion despite falling Hgb (4), however, he decided to take blood overnight and plans to get more today. His Hgb was improved to 5.8 today. His initial hesitancy stems from his methodist beliefs. 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 He is concerned about the government's involvement in medical care. He reports that he is feeling significantly better post transfusion of 2 units. He still feels tired but he notes, a world of difference. He feels like he can get up and walk now. He feels less SOB. He acknowledges that he was nearing yesterday. Reviewed GOC. His immediate goal is to determine the cause of the bleeding. He is interested in seeing Dr. Soto again. He is open to cystoscopy. He would prefer if that was done here, he feels [facility] is far but did not say he would not go there, he is open to going if needed but prefers to stay local if possible. He trusts Dr. Soto to do the procedure if he offers to do it. He wants to overcome this, and he is hoping for a new lease on life. He is clear that he wants the most efficient work up to get the answers that he is looking for. He wants the least involvement with the medical field as possible, he does not want to spend more time in the hospital than what is necessary. As far as treatment goes, he wants to hear options. He is clear that he may lean more in the direction of holistic care than traditional medical treatments. He takes supplements at home and would like to resume whatever he can. He has provided a list to his nurse. He also mentioned that he is [facility]. He is open to seeing ENT and audiology as an outpatient. He previously established that he is a DNR/DNI. This was not reviewed today. Assessment and Plan Assessment and plan (1) Severe anemia: Status: Acute Assessment and plan: R/t hematuria. Hbg improved to 5.8 today from 4 yesterday after receiving 2 u PRBCs. Plan is for him to receive more units today. He is open to work-up at this point. He is looking forward to seeing Dr. Soto again. (2) Catheter-associated urinary tract infection: Status: Acute Assessment and plan: On ceftriaxone. He reports that the ED intially ordered Cipro and he is adamantly against this antibiotic. He is concerned about disrupting his microbiome with the Abx. (3) Sepsis: Status: Acute Assessment and plan: With initial fever, elevated HR, RR in setting of acute urine infection, though anemia likely signficicant cause of pulse and RR abnormalities. Ceftriaxone as above. Blood culture pending. (4) Clot hematuria: Status: Acute Assessment and plan: Initial visit with Dr. Soto on 11/02/24. At that time, no procedures planned 2/2 severe anemia and associated anesthesia risk. He would like to revisit this now that he is open to accepting blood and work-up. (5) Hypertension: Assessment and plan: Chronically poorly controlled, has had CVA and CKD related to this. (6) Advanced care planning/counseling discussion: Status: Acute Assessment and plan: Reviewed GOC, as above. He agrees to blood transfusion. He wants work-up to determine the cause of the bleeding. He wants the most efficient work-up possible. He prefers to avoid hospitals/medical care as much as possible but agrees to the above. He may decide to treat holistically over traditional medical treatments but wants all of the information. He previously established that he was a DNR/DNI, this was not discussed during the visit today. 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 He reports he has plenty of support with friends and family. (7) Palliative care encounter: Status: Acute Assessment and plan: Offer f/u after discharge. If he remains in the hospital next week, Palliative can f/u with him here. Review of Systems Narrative: Per HPI PFSH All Active Problems (Updated 11/03/24 @ 13:38 by Clementine Welsh NP) Palliative care encounter (Acute) Advanced care planning/counseling discussion (Acute) Hematuria (Acute) Discharge planning issues (Acute) DVT prophylaxis (Acute) Sepsis (Acute) Severe anemia (Acute) Conflict between methodist belief and healthcare recommendation (Acute) Acute on chronic blood loss anemia (Acute) Acute UTI (Acute) Clot hematuria (Acute) Catheter-associated urinary tract infection (Acute) Elevated serum creatinine (Acute) Medical History CVA (cerebrovascular accident) describes residual left sided parasthesia and ataxia CKD (chronic kidney disease) stage 4, GFR 15-29 ml/min Hypertension Surgical History S/P cystoscopy Anjel/Swink Social History (Updated 11/03/24 @ 13:46 by Clementine Welsh NP) Smoking/Tobacco Use Status: Never Smoking risk assessment performed?: Yes Alcohol Intake: never Drug use: Never Substance use type: does not use Household members: spouse Housing: house Special rosemary needs: Yes Details: Methodist, 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 Agree to transfusion: No Do you feel safe at home: Yes Do you feel safe in your relationship?: Yes Additional Social history: Lives in [place] with . Exam Narrative Exam Narrative: General: pleasant, older man, skin is pale, he is awake and alert, engages in the visit. He answers questions appropriately. He does not appear to be in distress HEENT: normocephalic, atraumatic, EOMI, mmm neck: supple Respiratory: respirations appear even and unlabored at rest. : bright red urine noted in the alegre tubing. Ext: moves extremities freely. Results Last Vital Signs Temp 35.9 C L 11/03/24 07:23 Pulse 71 11/03/24 07:23 Resp 16 11/03/24 07:23 BP 128/77 11/03/24 07:23 Pulse Ox 99 11/03/24 07:23 Labs 11/03/24 07:15 11/02/24 06:40 Labs: Laboratory Results - last 24 hr 11/01/24 11/03/24 20:24 07:15 WBC 4.08 L RBC 2.45 L Hgb 5.8 L* Hct 18.2 L* MCV 74 L D MCH 23.7 L MCHC 31.9 L RDW 18.9 H Plt Count 232 MPV 10.5 ABO/Rh O Positive Antibody Screen NEGATIVE Crossmatch See Detail Time Spent Time Spent with Patient Time Spent(min): 128
[2024-11-03] MEDS: DEXTROSE 5%-LACTATED RINGERS 1,000 ML 75 ML IV (12:53)
--- NOTE | 2024-11-03 13:28 | PGE_ITS ---
Date of Service Date of service: 11/03/24 Time of Service: 13:28 Assessment and Plan Assessment and plan (1) Severe anemia: Status: Acute Assessment and plan: R/t hematuria. Hbg improved to 5.8 today from 4 yesterday after receiving 2 u PRBCs. Plan is for him to receive more units today. He is open to work-up at this point. He is looking forward to seeing Dr. Soto again. 11/03/24 Pt has agreed to 3 more units of prbc (2) Catheter-associated urinary tract infection: Status: Acute Assessment and plan: Diagnosed 2 days ago but not yet treated. Citrobacter growing, senstive to ceftriaxone, he accepts this treatment. Rodríguez was just replaced last visit when this was diagnosed 11/02/24 WBC is 5.62. Continue with current abx 11/03/2024 on rocephin. Cultures with GNR ->100k (3) Sepsis: Status: Acute Assessment and plan: With fever, elevated HR, RR in setting of acute urine infection, though anemia likely signficicant cause of pulse and RR abnormalities. Ceftriaxone as above. Blood culture pending. floor okay as BP stable, but with infection and severe anemia, wlll leave on tele. 11/02/24 As mentioned above, hard to tell how much of his vital abnormalities are related to sepsis, or just an appropriate physiological response to severe anemia (4) Clot hematuria: Status: Acute Assessment and plan: This is chronic, source of blood clot. Urology consult in AM. Bladder irration today. He will consider repeat cystoscopy. We still don't have clear diagnosis of source. 11/02/24 POC d/w Dr Soto. No procedures planned 2/2 severe anemia and associated anesthesia risk. 11/03/24 Pt is willing to investigate cause of bleeding now. Webex sent to Dr Soto and awaiting follow up (5) Hypertension: Assessment and plan: Chronically poorly controlled, has had CVA and CKD related to this. He isn't taking losartan. Monitor this for now, encourage BP meds upon discharge if he survives. 11/02/24 Will allow for permissive htn as this is a response to anemia. (6) DVT prophylaxis: Status: Acute Assessment and plan: bleeding. TEDS/SCDs (7) Discharge planning issues: Status: Acute Assessment and plan: He is at high risk of due to refusal of transfusion and very severe anemia. He confirms DNR. Intubation okay. Request palliative. Discussed his spiritual care. 11/02/24 Plan for an ethics consultation in am WOULD NOT DRAW ANYMORE BLOOD. 11/03/24 Pt was given 2units and will order 3 more units today Subjective Subjective Interval history since last seen: Pt seen and examined in his room. Feels much better after receiving blood Exam Narrative Exam Narrative: General: pleasant, older man, skin is pale, he is awake and alert, engages in the visit. He answers questions appropriately. He does not appear to be in distress. Much improved color. HEENT: normocephalic, atraumatic, EOMI, mmm neck: supple Respiratory: respirations appear even and unlabored at rest. Ext: moves extremities freely. unkempt fingernails Objective Last Vital Signs Temp 37.0 C 11/03/24 10:43 Pulse 78 11/03/24 10:43 Resp 16 11/03/24 10:43 BP 133/72 11/03/24 10:43 Pulse Ox 99 11/03/24 10:43 Laboratory Results - last 24 hr 11/01/24 11/03/24 20:24 07:15 WBC 4.08 L RBC 2.45 L Hgb 5.8 L* Hct 18.2 L* MCV 74 L D MCH 23.7 L MCHC 31.9 L RDW 18.9 H Plt Count 232 MPV 10.5 ABO/Rh O Positive Antibody Screen NEGATIVE Crossmatch See Detail Time Spent with Patient Time Spent with Patient: 25-34 minutes Time was spent: preparing to see the patient(eg.review tests), obtaining and/or reviewing separately otained hiistory, ordering medications,tests, procedures, referring, communicating with other health manager progressive care, indepentently interpreting results, counseling the patient and care coordination
--- NOTE | 2024-11-03 13:56 | PHA.REVIEW2 ---
Pharmacy Admission Review Admission Clinical Review Admission Pharmacy Review: Palliative care encounter (Acute) Advanced care planning/counseling discussion (Acute) Hematuria (Acute) Discharge planning issues (Acute) DVT prophylaxis (Acute) Sepsis (Acute) Severe anemia (Acute) Acute UTI (Acute) Clot hematuria (Acute) Catheter-associated urinary tract infection (Acute) No Known Allergies Allergy (Verified 10/30/24 11:14) Resuscitation Status DNR/DNI Height 6 ft Weight 70.5 kg Pharmacy Admission Review Renal Dosing Renal Dosing: BUN 53 mg/dL (7-18) H 11/02/24 06:40 Creatinine 2.8 mg/dL (0.70-1.30) H 11/02/24 06:40 Medications needing adjustments: Reviewed (CrCl 24 mL/min) List of meds needing interventions: Current medications are okay Anticoagulation Anticoagulation: Hgb 5.8 g/dL (13.5-17.5) L* 4.0 g/dL (13.5-17.5) L* 4.1 g/dL (13.5-17.5) L* 11/03/24 07:15 11/02/24 06:40 11/01/24 20:24 Hct 18.2 % (40.0-50.0) L* 11/03/24 07:15 Plt Count 232 10^3/uL (130-400) 11/03/24 07:15 INR 1.0 (0.9-1.1) 11/01/24 20:24 Creatinine 2.8 mg/dL (0.70-1.30) H 11/02/24 06:40 DVT Prophylaxis: Reviewed (SCDs/TEDs - anemia) Relevant Labs Relevant Labs: Sodium 134 mmol/L (136-145) L 11/02/24 06:40 Potassium 4.0 mmol/L (3.5-5.1) 11/02/24 06:40 Chloride 102 mmol/L (98-107) 11/02/24 06:40 Magnesium 2.0 mg/dL (1.8-2.4) 11/01/24 20:24 Electrolytes, C-Reactive P, ESR: Reviewed Cardiac Review Cardiac Review: Troponin I 29 ng/L (<or=76) 11/01/24 23:24 BP, HR, EF%: Reviewed (BP and HR WNL) QTc Review QTc: Reviewed (371 from 11/01/24) IV to PO Switch IV Medications: Reviewed (ceftriaxone) Home Meds Home Med List reviewed: Reviewed Relevent Home Meds Not ordered & why?: aspirin (anemia) and losartan (per H+P patient reports that they are not taking this medication anymore) Current Meds Current Medication Order Review: Intervened Comments: Discontinued today scheduled orders for acetaminophen and diphenhydramine (blood bank order set given early this morning) Patient receiving more iron today (400mg) Pharmacy Antibiotic Review Relevant Labs: WBC 4.08 10^3/uL (4.4-10.8) L 11/03/24 07:15 Procalcitonin 2.05 ng/mL 11/01/24 20:24 Temperature 37.0 C Temperature 35.9 C Temperature 36.1 C Temperature 36.4 C Microbiology 11/01/24 20:45 Blood Culture - Preliminary Blood NO GROWTH 24 HOURS 11/01/24 20:37 Blood Culture - Preliminary Blood NO GROWTH 24 HOURS 11/01/24 20:02 Urine Culture - Preliminary Urine - Voided Gram negative dwight Gram positive adina, mixed Gram negative dwight#2 11/01/24 0815 urine culture Organism 1 Citrobacter freundii COLONY COUNT >100,000 COLONIES/ML Citr freu Result Cefazolin R Ceftazidime S CEFTRIAXONE S Ciprofloxacin S Gentamicin S Nitrofurantoin S Imipenem S Levofloxacin S Tobramycin S Trimethoprim/Sulfamethoxazole S Piperacillin/Tazobactam S Pharmacy Antibiotic Activity: C/S review and Reviewed, no change Comments: Patient is on ceftriaxone, day 2, for sepsis/UTI
[2024-11-03] MEDS: IRON SUCROSE COMPLEX 400 MG in Normal Saline 250 ML 100 MG IVPB (14:23)
[2024-11-03] MEDS: Normal Saline Flush 10 ML SYR IVP ×2 (14:24→20:50)
--- NOTE | 2024-11-03 16:33 | CHAPLAIN ---
I visited with Fabrice and Juliane this morning. Juliane is continues to research ways for Fabrice to received direct donations of blood and has friends who have offered to be tested to be donors. She is in touch with the [facility] and Dr. Kinga Murray, who is a naturopathic doctor in [place]. Juliane said there have been many road blocks in the way of making this direct donation happen. Direct donations are not something we can do at [facility], and [facility] said they would not do it there. Yesterday Fabrice did not want to accept any blood transfusions although Dr. Adrian explained that he was getting into a situation where he might not survive without the blood. Overnight Fabrice developed some cardiac concerns, and then accept two units of blood and agreed to more today. He explained to Palliative Care staff that he wants as little involvement with the medical world has possible and would prefer to stay here rather than be transferred to [facility]. Dr. Soto is also seeing him today. Fabrice did tell Clementine Welsh NP, from that he wants to find out what is causing his blood loss. Juliane and Fabrice told me that they are conservative Christians and she emphasized that they use the [employer] Nba version of the Bible. (They are not Confucianism Scientists as was first reported, and wanted Fabrice to have blood that was from people who didn't' have COVID vaccines, according to Care Management notes.) They belong to a rastafari in [place], and also one in [facility], but attend mostly in [place]. Their stitch burnisher has been in to visit them and several friends visited yesterday as well as family members. When I asked how I could be helpful, Juliane suggested we voodoo God together and she offered a prayer. I let them know that surgical services director is available .
[2024-11-03] MEDS: cefTRIAXone 1 GM/50 ML BAG IVPB (22:15)
[2024-11-03] MEDS: Oxybutynin 5 MG TAB PO (23:07)
[2024-11-04] VITALS (13 sets, daily range): BP systolic 125–156; BP diastolic 73–98; PULSE 62–82; RESP 14–18; TEMP 36.2–37.2; O2SAT 96–100
[2024-11-04] MEDS: DEXTROSE 5%-LACTATED RINGERS 1,000 ML 75 ML IV ×2 (04:42→17:57)
[2024-11-04 06:57] LABS: Abs Immature Grans 0.03 10^3/uL (0.0-0.06); HCT 21.8 % (40.0-50.0); HGB 7.3 g/dL (13.5-17.5); Immature Grans % 0.7 %; MCH 26.1 pg (27.0-33.0); MCHC 33.5 % (32.0-36.0); MCV 78 fL (80-95); MPV 10.4 fL (8.0-11.0); Platelet Count 232 10^3/uL (130-400); RBC 2.80 10^6/uL (4.36-5.78); RDW 19.4 % (11.8-14.1); RDW-SD 55.4 fL; WBC 4.38 10^3/uL (4.4-10.8)
[2024-11-04 07:20] LABS: ALT 21 U/L (16-63); AST 14 U/L (15-37); Albumin 2.2 g/dL (3.4-5.0); Alkaline Phosphatase 50 U/L (46-116); Anion Gap 7.8 mmol/L (3-11); BUN 33 mg/dL (7-18); Bilirubin, Total 0.3 mg/dL (0.2-1.0); CO2 25.2 mmol/L (21.0-32.0); Calcium 8.5 mg/dL (8.5-10.1); Chloride 107 mmol/L (98-107); Estimated GFR 35.02 (mL/min/1.73m2); Glucose 110 mg/dL (74-106); Potassium 4.0 mmol/L (3.5-5.1); Sodium 140 mmol/L (136-145); Total Protein 5.4 g/dL (6.4-8.2)
[2024-11-04] MEDS: Normal Saline Flush 10 ML SYR IVP ×2 (08:00→21:28)
--- NOTE | 2024-11-04 10:36 | W.PM.PROGNOT ---
Date of Service Date of service: 11/04/24 Time of Service: 10:36 Assessment and Plan Assessment and plan (1) Severe anemia: Status: Acute Assessment and plan: R/t hematuria. Hbg improved to 5.8 today from 4 yesterday after receiving 2 u PRBCs. Plan is for him to receive more units today. He is open to work-up at this point. He is looking forward to seeing Dr. Soto again. 11/03/24 Pt has agreed to 3 more units of prbc 11/04/24 hg at 7.8. Would have expected a bit higher of a bump. Pt is still actively bleeding through alegre. Will transfuse another unit (2) Catheter-associated urinary tract infection: Status: Acute Assessment and plan: Diagnosed 2 days ago but not yet treated. Citrobacter growing, senstive to ceftriaxone, he accepts this treatment. Alegre was just replaced last visit when this was diagnosed 11/02/24 WBC is 5.62. Continue with current abx 11/03/2024 on rocephin. Cultures with GNR ->100k 11/04/24 sensitivities are still not available. Will cw rocephin (3) Sepsis: Status: Acute Assessment and plan: With fever, elevated HR, RR in setting of acute urine infection, though anemia likely signficicant cause of pulse and RR abnormalities. Ceftriaxone as above. Blood culture pending. floor okay as BP stable, but with infection and severe anemia, wlll leave on tele. 11/02/24 As mentioned above, hard to tell how much of his vital abnormalities are related to sepsis, or just an appropriate physiological response to severe anemia 11/04/24 vital signs much improved s/p transfusions as well as abx use (4) Clot hematuria: Status: Acute Assessment and plan: This is chronic, source of blood clot. Urology consult in AM. Bladder irration today. He will consider repeat cystoscopy. We still don't have clear diagnosis of source. 11/02/24 POC d/w Dr Soto. No procedures planned 2/2 severe anemia and associated anesthesia risk. 11/03/24 Pt is willing to investigate cause of bleeding now. Webex sent to Dr Soto and awaiting follow up (5) Hypertension: Assessment and plan: Chronically poorly controlled, has had CVA and CKD related to this. He isn't taking losartan. Monitor this for now, encourage BP meds upon discharge if he survives. 11/02/24 Will allow for permissive htn as this is a response to anemia. (6) DVT prophylaxis: Status: Acute Assessment and plan: bleeding. TEDS/SCDs (7) Discharge planning issues: Status: Acute Assessment and plan: He is at high risk of due to refusal of transfusion and very severe anemia. He confirms DNR. Intubation okay. Request palliative. Discussed his spiritual care. 11/02/24 Plan for an ethics consultation in am WOULD NOT DRAW ANYMORE BLOOD. 11/03/24 Pt was given 2units and will order 3 more units today Subjective Subjective Interval history since last seen: PT seen and examined in his room. Pt would be willing to accept another unit of rbc Exam Narrative Exam Narrative: heent-ncat mmm eomi perrla neck-no lad no jvd cv-rrr no mrg pul-ctab no amu abd-sntbsa ext-no cce Objective Last Vital Signs Temp 36.6 C 11/04/24 07:37 Pulse 67 11/04/24 07:37 Resp 16 11/04/24 07:37 BP 140/86 11/04/24 07:37 Pulse Ox 96 11/04/24 07:37 Laboratory Results - last 24 hr 11/01/24 11/04/24 20:24 06:40 WBC 4.38 L RBC 2.80 L Hgb 7.3 L Hct 21.8 L MCV 78 L D MCH 26.1 L MCHC 33.5 RDW 19.4 H Plt Count 232 MPV 10.4 Immature Gran % 0.7 Neutrophils % 66.8 Lymphocytes % 12.6 Monocytes % 13.7 Eosinophils % 5.5 Basophils % 0.7 Nucleated RBC % 0.0 Absolute Neutrophils 2.93 Absolute Lymphocytes 0.55 L Absolute Monocytes 0.60 Absolute Eosinophils 0.24 Absolute Basophils 0.03 Sodium 140 Potassium 4.0 Chloride 107 Carbon Dioxide 25.2 Anion Gap 7.8 BUN 33 H Creatinine 2.0 H Est GFR (CKD-EPI 2020) 35.02 Glucose 110 H Calcium 8.5 Total Bilirubin 0.3 AST 14 L ALT 21 Alkaline Phosphatase 50 Total Protein 5.4 L Albumin 2.2 L ABO/Rh O Positive Antibody Screen NEGATIVE Crossmatch See Detail Time Spent with Patient Time Spent with Patient: 25-34 minutes Time was spent: preparing to see the patient(eg.review tests), obtaining and/or reviewing separately otained hiistory, ordering medications,tests, procedures, referring, communicating with other health director long term care, indepentently interpreting results, counseling the patient and care coordination
[2024-11-04] MEDS: cefTRIAXone 1 GM/50 ML BAG IVPB (21:18)
[2024-11-05] MEDS: DEXTROSE 5%-LACTATED RINGERS 1,000 ML 75 ML IV ×2 (06:12→19:20)
[2024-11-05 07:23] VITALS: BP 177/99; PULSE 69; RESP 17; TEMP 36.6; O2SAT 98
[2024-11-05] MEDS: Normal Saline Flush 10 ML SYR IVP ×2 (07:47→19:52)
[2024-11-05 11:15] LABS: Abs Immature Grans 0.07 10^3/uL (0.0-0.06); HCT 27.9 % (40.0-50.0); HGB 8.7 g/dL (13.5-17.5); Immature Grans % 1.2 %; MCH 25.3 pg (27.0-33.0); MCHC 31.2 % (32.0-36.0); MCV 81 fL (80-95); MPV 10.1 fL (8.0-11.0); Platelet Count 246 10^3/uL (130-400); RBC 3.44 10^6/uL (4.36-5.78); RDW 19.6 % (11.8-14.1); RDW-SD 57.6 fL; WBC 5.81 10^3/uL (4.4-10.8)
[2024-11-05 11:29] VITALS: BP 161/97; PULSE 85; RESP 16; TEMP 36.8; O2SAT 99
[2024-11-05 11:30] LABS: ALT 18 U/L (16-63); AST 16 U/L (15-37); Albumin 2.5 g/dL (3.4-5.0); Alkaline Phosphatase 63 U/L (46-116); Anion Gap 9.5 mmol/L (3-11); BUN 33 mg/dL (7-18); Bilirubin, Total 0.3 mg/dL (0.2-1.0); CO2 25.5 mmol/L (21.0-32.0); Calcium 8.9 mg/dL (8.5-10.1); Chloride 107 mmol/L (98-107); Estimated GFR 29.62 (mL/min/1.73m2); Glucose 122 mg/dL (74-106); Potassium 4.3 mmol/L (3.5-5.1); Sodium 142 mmol/L (136-145); Total Protein 6.0 g/dL (6.4-8.2)
--- NOTE | 2024-11-05 12:32 | PGE_ITS ---
Date of Service Date of service: 11/05/24 Time of Service: 12:32 Assessment and Plan Assessment and plan (1) Severe anemia: Status: Acute Assessment and plan: R/t hematuria. Hbg improved to 5.8 today from 4 yesterday after receiving 2 u PRBCs. Plan is for him to receive more units today. He is open to work-up at this point. He is looking forward to seeing Dr. Soto again. 11/03/24 Pt has agreed to 3 more units of prbc 11/04/24 hg at 7.8. Would have expected a bit higher of a bump. Pt is still actively bleeding through alegre. Will transfuse another unit 11/05/24 Pt with better than expected result to transfusion and is currently at 8.7 (2) Catheter-associated urinary tract infection: Status: Acute Assessment and plan: Diagnosed 2 days ago but not yet treated. Citrobacter growing, senstive to ceftriaxone, he accepts this treatment. Alegre was just replaced last visit when this was diagnosed 11/02/24 WBC is 5.62. Continue with current abx 11/03/2024 on rocephin. Cultures with GNR ->100k 11/04/24 sensitivities are still not available. Will cw rocephin 11/05/24 Urine Culture Final 11/04/24-0745 Day 1 Result ISOLATES BELOW ISOLATE 1 COLONY COUNT >100,000 COLONIES/ML ISOLATE 1 APPEARANCE Gram Negative Darrion ISOLATE 1 ACTION ID AND SUSCEPTIBILITY TO FOLLOW ISOLATE 2 COLONY COUNT 10,000 - 50,000 COLONIES/ML ISOLATE 2 APPEARANCE Mixed Gram Positive Adina ISOLATE 3 COLONY COUNT <10,000 COLONIES/ML ISOLATE 3 APPEARANCE Gram Negative Darrion Day 2 Result ISOLATES BELOW ISOLATE 1 COLONY COUNT >100,000 COLONIES/ML ISOLATE 1 APPEARANCE Gram Negative Darrion ISOLATE 2 COLONY COUNT 10,000 - 50,000 COLONIES/ML ISOLATE 2 APPEARANCE Mixed Gram Positive Adina ISOLATE 3 COLONY COUNT <10,000 COLONIES/ML ISOLATE 3 APPEARANCE Mixed Gram Negative Adina Organism 1 Citrobacter freundii COLONY COUNT >100,000 COLONIES/ML Organism 2 Gram positive adina, mixed COLONY COUNT 10,000 - 50,000 COLONIES/ML Organism 3 Gram negative adina, mixed COLONY COUNT <10,000 COLONIES/ML Citr freu Result Cefazolin R Ceftazidime S CEFTRIAXONE S Ciprofloxacin S Gentamicin S Nitrofurantoin S Imipenem S Levofloxacin S Tobramycin S Trimethoprim/Sulfamethoxazole S Piperacillin/Tazobactam S (3) Sepsis: Status: Acute Assessment and plan: With fever, elevated HR, RR in setting of acute urine infection, though anemia likely signficicant cause of pulse and RR abnormalities. Ceftriaxone as above. Blood culture pending. floor okay as BP stable, but with infection and severe anemia, wlll leave on tele. 11/02/24 As mentioned above, hard to tell how much of his vital abnormalities are related to sepsis, or just an appropriate physiological response to severe anemia 11/04/24 vital signs much improved s/p transfusions as well as abx use (4) Clot hematuria: Status: Acute Assessment and plan: This is chronic, source of blood clot. Urology consult in AM. Bladder irration today. He will consider repeat cystoscopy. We still don't have clear diagnosis of source. 11/02/24 POC d/w Dr Soto. No procedures planned 2/2 severe anemia and associated anesthesia risk. 11/03/24 Pt is willing to investigate cause of bleeding now. Webex sent to Dr Soto and awaiting follow up (5) Hypertension: Assessment and plan: Chronically poorly controlled, has had CVA and CKD related to this. He isn't taking losartan. Monitor this for now, encourage BP meds upon discharge if he survives. 11/02/24 Will allow for permissive htn as this is a response to anemia. (6) DVT prophylaxis: Status: Acute Assessment and plan: bleeding. TEDS/SCDs (7) Discharge planning issues: Status: Acute Assessment and plan: He is at high risk of due to refusal of transfusion and very severe anemia. He confirms DNR. Intubation okay. Request palliative. Discussed his spiritual care. 11/02/24 Plan for an ethics consultation in am WOULD NOT DRAW ANYMORE BLOOD. 11/03/24 Pt was given 2units and will order 3 more units today Subjective Subjective Interval history since last seen: Pt states that he is feeling much better. Wants to ambulate Exam Narrative Exam Narrative: heent-ncat mmm eomi perrla neck-no lad no jvd cv-rrr no mrg pul-ctab no amu abd-sntbsa ext-no cce Objective Last Vital Signs Temp 36.8 C 11/05/24 11:29 Pulse 85 11/05/24 11:29 Resp 16 11/05/24 11:29 BP 161/97 H 11/05/24 11:29 Pulse Ox 99 11/05/24 11:29 Laboratory Results - last 24 hr 11/01/24 11/05/24 20:24 11:03 WBC 5.81 RBC 3.44 L Hgb 8.7 L Hct 27.9 L MCV 81 MCH 25.3 L MCHC 31.2 L D RDW 19.6 H Plt Count 246 MPV 10.1 Immature Gran % 1.2 Neutrophils % 73.5 Lymphocytes % 12.6 Monocytes % 7.7 Eosinophils % 4.3 Basophils % 0.7 Nucleated RBC % 0.0 Absolute Neutrophils 4.27 Absolute Lymphocytes 0.73 L Absolute Monocytes 0.45 Absolute Eosinophils 0.25 Absolute Basophils 0.04 Sodium 142 Potassium 4.3 Chloride 107 Carbon Dioxide 25.5 Anion Gap 9.5 BUN 33 H Creatinine 2.3 H Est GFR (CKD-EPI 2020) 29.62 Glucose 122 H Calcium 8.9 Total Bilirubin 0.3 AST 16 ALT 18 Alkaline Phosphatase 63 Total Protein 6.0 L Albumin 2.5 L Crossmatch See Detail Time Spent with Patient Time Spent with Patient: 25-34 minutes Time was spent: preparing to see the patient(eg.review tests), obtaining and/or reviewing separately otained hiistory, ordering medications,tests, procedures, referring, communicating with other health resident care supervisor, indepentently interpreting results, counseling the patient and care coordination
[2024-11-05 15:44] VITALS: BP 144/93; PULSE 79; RESP 17; TEMP 36.5; O2SAT 98
[2024-11-05 16:18] LABS: Magnesium 1.9 mg/dL (1.8-2.4)
[2024-11-05 19:13] VITALS: BP 139/95; PULSE 85; RESP 18; TEMP 36.7; O2SAT 98
[2024-11-05] MEDS: Magnesium Chloride 64 MG TABCR PO (19:51)
[2024-11-05] MEDS: cefTRIAXone 1 GM/50 ML BAG IVPB (21:14)
[2024-11-06 03:28] VITALS: BP 152/95; PULSE 75; RESP 20; TEMP 36.6; O2SAT 98
[2024-11-06] MEDS: DEXTROSE 5%-LACTATED RINGERS 1,000 ML 75 ML IV ×2 (07:10→19:26)
[2024-11-06 07:19] VITALS: BP 160/98; PULSE 74; RESP 18; TEMP 36.8; O2SAT 97
[2024-11-06] MEDS: Magnesium Chloride 64 MG TABCR PO ×2 (08:43→20:27)
[2024-11-06] MEDS: Normal Saline Flush 10 ML SYR IVP ×3 (08:46→22:16)
--- NOTE | 2024-11-06 08:58 | CMPROGNOTE_ITS ---
Date of service: 11/06/24 Time of Service: 08:58 Care Management Progress Note Progress Note Text Progress Note Text: Jorje was sitting up in bed working on his laptop when CM met with him; Juliane was present at the bedside. Both are calm, pleasant and easy to engage in conversation. Jorje met with Urology (Dr. Soto) this afternoon and is planning to go to the OR tomorrow for a cystoscopy, if his labs are stable in the morning. In the meantime, Jorje continues to be closely monitored and treated with IV ABX, Bladder irrigation, iron and PRN blood transfusions. CM will continue to follow. Discharge Potential Discharge Needs: Consult Consult Services Needed: Nutrition and Palliative, PT Evaluation and PCP F/U Appt Anticipated Barriers to Discharge: None Identified Patient/Family Education Needs: Review discharge instructions, discuss Ask Me Three Transportation: Other (Dependent on discharge plan and mobility at the time of dispo)) Plan: Patient requires further medical work up and is now planning to go to the OR for a cystoscopy Wednesday. PT evaluation may be helpful to support discharge planning needs (when medically appropriate.) Discharge planning continues, recommend pt establish care with a PCP of choice. List of local PCPs will be provided to pt. CM will follow. Social Determinants of Health Screening Social Determinants of health last assessed in clinic: 11/06/24 Will the Patient Participate in the Screening?: Yes Do you worry about having a steady place to live?: yes What is your living situation today?: I have housing today, but am worried about losing it Problems where you live: no known problems In the past 12 months, have you had to go without electric, gas, oil or water in your home?: no 1. Within the past 12 months, we worried whether our food would run out before we got money to buy more.: Never true 2. Within the past 12 months, the food we bought just didn't last and we didn't have money to get more.: Never true Has lack of transportation kept you from medical appointments or from doing things needed for daily living?: no Has anyone in your life made you feel unsafe or unsupported?: no How hard is it for you to pay for the very basics like food, housing, medical care, and heating? Would you say it is:: Not hard at all Do you want help finding or keeping work or a job?: I do not need or want help If for any reason you need help with day-to-day activities such as bathing, preparing meals, shopping, managing finances, etc., do you get the help you need?: I don?t need any help How often do you feel lonely or isolated from those around you?: Never Do you speak a language other than [place] Citizen at home?: No Does the patient want assistance with any of the above?: No Health Related Social Needs Health related social needs: housing instability, housed, with risk of homelessness (Z59.811) Health related social needs details: N/A
[2024-11-06] MEDS: IRON SUCROSE COMPLEX 400 MG in Normal Saline 250 ML 100 MG IVPB (10:55)
[2024-11-06 11:28] VITALS: BP 132/88; PULSE 78; RESP 20; TEMP 37.5; O2SAT 97
--- NOTE | 2024-11-06 13:31 | W.PM.PROGNOT ---
Date of Service Date of service: 11/06/24 Time of Service: 13:31 Assessment and Plan Assessment and plan (1) Hematuria: Status: Acute Assessment and plan: I was able to dislodge his clots today, but we have still not able to tell the exact etiology for his recurrent episodes of hematuria. He had an infection when he presented this time to the emergency department, so he may have a component of hemorrhagic cystitis. Initially, the patient was not felt to be an anesthesia candidate for us at our hospital for any type of elective procedure. I again discussed the case with our anesthesia colleagues and they feel that if the procedure is deemed urgent, we would be able to provide either a spinal or a general anesthetic for this gentleman. We will declare him an urgent case, keep him n.p.o. after midnight and put him on the schedule for a cystoscopy, clot evacuation, possible transurethral resection/biopsy of the bladder/possible fulguration. His ultimate treatment will really depend on his surgical pathology. Subjective Subjective Interval history since last seen: Since I last saw the patient, he has agreed to receiving blood transfusions. He has received a total of 6 units and is feeling much better. He continues to have hematuria and clots. He has leakage around the catheter. Exam Narrative Exam Narrative: He appears uncomfortable His abdomen is tense in the suprapubic area but there are no peritoneal signs His catheter was hand irrigated but there was no return with aspiration. Objective Last Vital Signs Temp 37.5 C 11/06/24 11:28 Pulse 78 11/06/24 11:28 Resp 20 11/06/24 11:28 BP 132/88 11/06/24 11:28 Pulse Ox 97 11/06/24 11:28 Laboratory Results - last 24 hr 11/05/24 11:03 Magnesium 1.9 Insert Bladder Catheter Text: The patient was seen at the bedside. His indwelling urethral catheter balloon was deflated and the 18 [place] irrigating catheter was removed. The glans was then prepped with Betadine. 2% Xylocaine jelly was instilled into the urethra to act as a local anesthetic. A 24 [place] hematuria catheter was then passed through the urethra into the bladder. The catheter balloon was inflated with 10 cc of sterile water. The catheter was then hand irrigated and many clots were evacuated. The catheter was then hand irrigated and many clots were evacuated. After irrigating with over a liter of fluid, the irrigant became clear. The catheter was then hooked back to gravity drainage and continuous bladder irrigation was resumed. The patient tolerated this procedure well. Time Spent with Patient Time Spent with Patient: >50 minutes Time was spent: preparing to see the patient(eg.review tests), obtaining and/or reviewing separately otained hiistory, ordering medications,tests, procedures, referring, communicating with other health transitional care nurse, counseling the patient and care coordination
--- NOTE | 2024-11-06 13:41 | W.PM.PROGNOT ---
Date of Service Date of service: 11/06/24 Time of Service: 13:41 Assessment and Plan Assessment and plan (1) Severe anemia: Status: Acute Assessment and plan: R/t hematuria. Hbg improved to 5.8 today from 4 yesterday after receiving 2 u PRBCs. Plan is for him to receive more units today. He is open to work-up at this point. He is looking forward to seeing Dr. Soto again. 11/03/24 Pt has agreed to 3 more units of prbc 11/04/24 hg at 7.8. Would have expected a bit higher of a bump. Pt is still actively bleeding through alegre. Will transfuse another unit 11/05/24 Pt with better than expected result to transfusion and is currently at 8.7 11/06/24 recheck cbc in am (2) Catheter-associated urinary tract infection: Status: Acute Assessment and plan: Diagnosed 2 days ago but not yet treated. Citrobacter growing, senstive to ceftriaxone, he accepts this treatment. Alegre was just replaced last visit when this was diagnosed 11/02/24 WBC is 5.62. Continue with current abx 11/03/2024 on rocephin. Cultures with GNR ->100k 11/04/24 sensitivities are still not available. Will cw rocephin 11/05/24 Urine Culture Final 11/04/24-0745 Day 1 Result ISOLATES BELOW ISOLATE 1 COLONY COUNT >100,000 COLONIES/ML ISOLATE 1 APPEARANCE Gram Negative Darrion ISOLATE 1 ACTION ID AND SUSCEPTIBILITY TO FOLLOW ISOLATE 2 COLONY COUNT 10,000 - 50,000 COLONIES/ML ISOLATE 2 APPEARANCE Mixed Gram Positive Adina ISOLATE 3 COLONY COUNT <10,000 COLONIES/ML ISOLATE 3 APPEARANCE Gram Negative Darrion Day 2 Result ISOLATES BELOW ISOLATE 1 COLONY COUNT >100,000 COLONIES/ML ISOLATE 1 APPEARANCE Gram Negative Darrion ISOLATE 2 COLONY COUNT 10,000 - 50,000 COLONIES/ML ISOLATE 2 APPEARANCE Mixed Gram Positive Adina ISOLATE 3 COLONY COUNT <10,000 COLONIES/ML ISOLATE 3 APPEARANCE Mixed Gram Negative Adina Organism 1 Citrobacter freundii COLONY COUNT >100,000 COLONIES/ML Organism 2 Gram positive adina, mixed COLONY COUNT 10,000 - 50,000 COLONIES/ML Organism 3 Gram negative adina, mixed COLONY COUNT <10,000 COLONIES/ML Citr freu Result Cefazolin R Ceftazidime S CEFTRIAXONE S Ciprofloxacin S Gentamicin S Nitrofurantoin S Imipenem S Levofloxacin S Tobramycin S Trimethoprim/Sulfamethoxazole S Piperacillin/Tazobactam S 11/06/24 Continue with abx for now. Pt is on rocephin (3) Sepsis: Status: Acute Assessment and plan: With fever, elevated HR, RR in setting of acute urine infection, though anemia likely signficicant cause of pulse and RR abnormalities. Ceftriaxone as above. Blood culture pending. floor okay as BP stable, but with infection and severe anemia, wlll leave on tele. 11/02/24 As mentioned above, hard to tell how much of his vital abnormalities are related to sepsis, or just an appropriate physiological response to severe anemia 11/04/24 vital signs much improved s/p transfusions as well as abx use (4) Clot hematuria: Status: Acute Assessment and plan: This is chronic, source of blood clot. Urology consult in AM. Bladder irration today. He will consider repeat cystoscopy. We still don't have clear diagnosis of source. 11/02/24 POC d/w Dr Soto. No procedures planned 2/2 severe anemia and associated anesthesia risk. 11/03/24 Pt is willing to investigate cause of bleeding now. Webex sent to Dr Soto and awaiting follow up 11/06/24 Alegre irrigated by urology with good response (5) Hypertension: Assessment and plan: Chronically poorly controlled, has had CVA and CKD related to this. He isn't taking losartan. Monitor this for now, encourage BP meds upon discharge if he survives. 11/02/24 Will allow for permissive htn as this is a response to anemia. 11/06/24 Pt does have continued htn but hesitant to treat as this can be a physiologic response to blood loss. Asymptomatic (6) DVT prophylaxis: Status: Acute Assessment and plan: bleeding. TEDS/SCDs (7) Discharge planning issues: Status: Acute Assessment and plan: He is at high risk of due to refusal of transfusion and very severe anemia. He confirms DNR. Intubation okay. Request palliative. Discussed his spiritual care. 11/02/24 Plan for an ethics consultation in am WOULD NOT DRAW ANYMORE BLOOD. 11/03/24 Pt was given 2units and will order 3 more units today Subjective Subjective Interval history since last seen: Pt seen and examined in his room. POC d/w Dr Soto who will take the pt for cystoscopy tomorrow. Exam Narrative Exam Narrative: heent-ncat mmm eomi perrla neck-no lad no jvd cv-rrr no mrg pul-ctab no amu abd-sntbsa ext-no cce gu-alegre with active bleeding Objective Last Vital Signs Temp 37.5 C 11/06/24 11:28 Pulse 78 11/06/24 11:28 Resp 20 11/06/24 11:28 BP 132/88 11/06/24 11:28 Pulse Ox 97 11/06/24 11:28 Laboratory Results - last 24 hr 11/05/24 11:03 Magnesium 1.9 Time Spent with Patient Time Spent with Patient: 35-49 minutes Time was spent: preparing to see the patient(eg.review tests), obtaining and/or reviewing separately otained hiistory, ordering medications,tests, procedures, referring, communicating with other health patient care coordinator, indepentently interpreting results, counseling the patient and care coordination
--- NOTE | 2024-11-06 14:06 | W.PALPGNOTE ---
Date of service: 11/06/24 Time of Service: 13:45 Assessment and Plan Assessment and plan (1) Palliative care encounter: Status: Acute Assessment and plan: PC will continue to follow while inpatient, offer outpatient on discharge next avail 11/08 - left note on board for plan to schedule best time for them Wed (2) Advanced care planning/counseling discussion: Status: Acute Assessment and plan: Jorje and Juliane prefer holistic style care versus traditional western medicine; they are skeptical of the health care system, prefer language simplified and explained thoroughly Historically Jorje has been resistant to treatments, preferring to rely on prayer/orthodox treatments, however on 11/02 he had a small change in preferences and allowed for a blood transfusion. He was not interested in being transferred to a tertiary facility, preferring to remain local. He has been agreeable to repeat transfusions and lab monitoring, w/preferences to follow Dr. Soto/urology's recommendations. He has agreed to a cystoscopy at [facility] tomorrow, plan for labs prior (3) Hematuria: Status: Acute Assessment and plan: per Urology Consult today 11/06/24 Initially, the patient was not felt to be an anesthesia candidate for us at our hospital for any type of elective procedure. I again discussed the case with our anesthesia colleagues and they feel that if the procedure is deemed urgent, we would be able to provide either a spinal or a general anesthetic for this gentleman. We will declare him an urgent case, keep him n.p.o. after midnight and put him on the schedule for a cystoscopy, clot evacuation, possible transurethral resection/biopsy of the bladder/possible fulguration. His ultimate treatment will really depend on his surgical pathology. (4) Severe anemia: Status: Acute Assessment and plan: agreeable to blood transfusions, last transfusion 3 units 11/04/24 repeat labs today, prior to procedure tomorrow (5) Conflict between orthodox belief and healthcare recommendation: Status: Acute Assessment and plan: preference to avoid traditional Western medicine practice as able; focus on holistic care Caodaism, following [employer], concerned w/governmental influence in HC (6) Acute UTI: Status: Acute Assessment and plan: continue Rocephin (7) Clot hematuria: Status: Acute Assessment and plan: as above see urology consult (8) CKD (chronic kidney disease) stage 4, GFR 15-29 ml/min: Assessment and plan: need for review, as appropriate Subjective Subjective Interval history since last seen: Jorje remains hospitalized at [facility] 2/ hematuria last seen by palliative on 11/03, after he had had a change in his care preferences; He remains actively bleeding w/hematuria; he has now received blood transfusions overnight 11/02-11/03 2 units and 11/04 3 units, 11/05 hemoglobin at 8.7 urology re-consult today 11/06 w/new plan d/t his change in care preferences; placed new alegre w/several clots relieved; plan for cystoscopy tomorrow; Initial visit Jorje is sleeping, Juliane resting, request try again later attempted x2 over the next 2 hours, Juliane not at bedside, Jorje sleeping comfortably Exam Narrative Exam Narrative: General: older adult male, pale, lying in hospital bed w/headphones on, remains sleeping HEENT: normocephalic, atraumatic Resp: even and unlabored Objective Last Vital Signs Temp 99.5 F 11/06/24 11:28 Pulse 78 11/06/24 11:28 Resp 20 11/06/24 11:28 BP 132/88 11/06/24 11:28 Pulse Ox 97 11/06/24 11:28 Laboratory Results - last 24 hr 11/05/24 11:03 Magnesium 1.9
[2024-11-06 15:34] VITALS: BP 144/89; PULSE 84; RESP 16; TEMP 36.8; O2SAT 97
[2024-11-06 19:19] VITALS: BP 140/78; PULSE 84; RESP 16; TEMP 37.2; O2SAT 97
[2024-11-06] MEDS: cefTRIAXone 1 GM/50 ML BAG IVPB (22:15)
[2024-11-06 23:11] VITALS: BP 137/79; PULSE 78; RESP 17; TEMP 37.2; O2SAT 93
[2024-11-07] VITALS (80 sets, daily range): BP systolic 141–203; BP diastolic 74–110; PULSE 52–103; RESP 8–23; TEMP 35.9–36.9; O2SAT 88–100; BMI 20.9
[2024-11-07 06:59] LABS: Abs Immature Grans 0.12 10^3/uL (0.0-0.06); Immature Grans % 1.7 %; MCH 26.7 pg (27.0-33.0); MCHC 32.2 % (32.0-36.0); MCV 83 fL (80-95); MPV 10.4 fL (8.0-11.0); Platelet Count 310 10^3/uL (130-400); RBC 2.51 10^6/uL (4.36-5.78); RDW 21.3 % (11.8-14.1); RDW-SD 61.7 fL; WBC 7.10 10^3/uL (4.4-10.8)
[2024-11-07 07:05] LABS: HCT 20.8 % (40.0-50.0); HGB 6.7 g/dL (13.5-17.5)
[2024-11-07 07:18] LABS: Anisocytosis 2+
--- NOTE | 2024-11-07 08:22 | ANES.PREOP_ITS ---
General Info Date of Service Date Performed: 11/07/24 Height: 6 ft Weight: 69.938 kg Body Mass Index (BMI): 20.9 Surgical Procedure: Operation Date: 11/07/24 07:40 Proposed Procedure Side Surgeon p Cystoscopy with Bladder Biopsy & Fulgeration Jean-Pierre Soto MD Meds Allergies and Home Medications Allergies Allergy/AdvReac Type Severity Reaction Status Date / Time No Known Allergies Allergy Verified 10/30/24 11:14 Home Medication ?Medication ?Instructions ?Recorded aspirin 81 mg chewable tablet 81 mg PO DAILY 06/19/24 Held on 10/30/24. Instructions: Changed by Provider losartan 25 mg tablet 25 mg PO BID 06/19/24 soybean, fermented PO 11/01/24 R-lipoic acid 145 mg/scoop oral 300 mg PO DAILY powder liver pills 1 cap PO DAILY 11/03/24 magnesium glycinate 100 mg (as 500 mg PO DAILY 5 glycinate) tablet (Mag Glycinate) mecobalamin (vitamin B12) 500 mcg 500 mcg PO DAILY 04/29 chewable tablet Current Visit Medications: Current Medications Generic Name Dose Route Start Last Admin Trade Name Freq PRN Reason Stop Dose Admin Acetaminophen 650 mg 11/01/24 22:48 11/03/24 01:42 Acetaminophen 325 Mg Tab PO 650 mg Q4H PRN PRN Administration Ceftriaxone Sodium/Dextrose 1 gm in 50 mls @ 100 mls/hr 11/02/24 22:00 11/07/24 08:21 Rocephin IVPB Infused Q24H IVON Infusion Dextrose/Lactated Ringer's 1,000 mls @ 75 mls/hr 11/01/24 23:00 11/06/24 19:26 Dextrose 5%-Lr IV 75 mls/hr INFUSION IVON Administration IV Miscellaneous Supplies 1 each 11/01/24 20:30 Iv Access IV DIRECTED IVON Magnesium Chloride 64 mg 11/05/24 20:00 11/06/24 20:27 Magnesium Chloride 64 Mg Tabcr PO 64 mg BID IVON Administration Oxybutynin Chloride 5 mg 11/03/24 07:00 11/03/24 23:07 Oxybutynin 5 Mg Tab PO 5 mg TID PRN PRN Administration spasms Polyethylene Glycol 17 gm 11/01/24 22:48 Polyethylene Glycol 3350 17 Gm Packet PO DAILY PRN PRN Constipation Sodium Chloride 0 ml 11/01/24 20:16 11/06/24 22:16 Normal Saline Flush 10 Ml Syr IVP 10 ml PRN PRN Administration Sodium Chloride 0 ml 11/02/24 08:30 11/06/24 20:28 Normal Saline Flush 10 Ml Syr IVP 10 ml BID IVON Administration Sodium Chloride 0 ml 11/01/24 20:16 Normal Saline 10 Ml Vial IJ DIRECTED PRN PFSH Active Problems Active Problems: Problem Status Onset Code Palliative care encounter Acute Z51.5 Advanced care planning/counseling discussion Acute Z71.89 Hematuria Acute R31.9 Discharge planning issues Acute Z75.8 DVT prophylaxis Acute Z29.9 Sepsis Acute A41.9 Severe anemia Acute D64.9 Conflict between oriental orthodox belief and healthcare recommendation Acute Z91.89 Acute on chronic blood loss anemia Acute D62 Acute UTI Acute N39.0 Clot hematuria Acute R31.0 Catheter-associated urinary tract infection Acute T83.511A, N39.0 Elevated serum creatinine Acute R79.89 Medical History Medical History CVA (cerebrovascular accident) describes residual left sided parasthesia and ataxia CKD (chronic kidney disease) stage 4, GFR 15-29 ml/min Hypertension Surgical History Surgical History S/P cystoscopy Anjel/Kirk Tobacco Smoking/Tobacco Use Status: Never Alcohol Alcohol Intake: never Substance Use Substance use: Never Substance use type: does not use Vital Signs and Lab Results Vital Signs Most Recent Vital Signs in EMR: Most Recent Vital Signs Temp Pulse Resp BP Pulse Ox 36.8 C 77 12 141/85 H 98 11/07/24 07:30 11/07/24 07:30 11/07/24 07:30 11/07/24 07:30 11/07/24 07:30 Lab Results 11/07/24 06:10 11/05/24 11:03 Blood Type / Crossmatch: 2 Antibody Screen NEGATIVE 11/01/24 Crossmatch See Detail Today Complete Blood Count: 2 WBC, (4.4-10.8) 7.10 10^3/uL Today, 06:10 RBC, (4.36-5.78) 2.51 10^6/uL L Today, 06:10 Hgb, (13.5-17.5) 6.7 g/dL L* Δ Today, 06:10 Hct, (40.0-50.0) 20.8 % L* Today, 06:10 Plt Count, (130-400) 310 10^3/uL Today, 06:10 Complete Metabolic Panel: 2 Sodium, (136-145) 142 mmol/L 11/05/24, 11:03 Potassium, (3.5-5.1) 4.3 mmol/L 11/05/24, 11:03 Chloride, (98-107) 107 mmol/L 11/05/24, 11:03 Carbon Dioxide, (21.0-32.0) 25.5 mmol/L 11/05/24, 11 :03 BUN, (7-18) 33 mg/dL H 11/05/24, 11:03 Creatinine, (0.70-1.30) 2.3 mg/dL H 11/05/24, 11:03 Est GFR (CKD-EPI 2020), (mL/min/1.73m2) 29.62 11/05/24, 11:03 Magnesium, (1.8-2.4) 1.9 mg/dL 11/05/24, 11:03 Calcium, (8.5-10.1) 8.9 mg/dL 11/05/24, 11:03 Albumin, (3.4-5.0) 2.5 g/dL L 11/05/24, 11:03 Glucose, (74-106) 122 mg/dL H 11/05/24, 11:03 Liver Function Panel: 2 ALT, (16-63) 18 U/L 11/05/24, 11:03 AST, (15-37) 16 U/L 11/05/24, 11:03 Coagulation Panel: 2 INR, (0.9-1.1) 1.0 11/01/24, 20:24 PT, (9.1-11.1) 10.5 sec 11/01/24, 20:24 Cardiac Panel: 2 Troponin I, (<or=76) 29 ng/L 11/01/24 Anesthesia Assessment and Plan Anesthesia History Personal History: No History of Anesthesia Complications Family History: No Family History of Anesthesia Complications Exercise Tolerance Exercise Tolerance: Metabolic Equivalents>4 Pertinent Negatives Pertinent Negatives: No Symptoms of GERD Cardiac & Pulmonary Exam Cardiac Exam: Normal S1/S2 Heart Sounds Pulmonary Exam: Clear Bilateral Breath Sounds Implantable Cardiac Device Does patient have a Pacemaker or an ICD?: No Airway Exam Known Difficult Airway: No Mallampati Class: 2 Mouth Opening: Normal (> 3cm) Thyromental Distance: Greater than 3 cm Neck Range of Motion: Full ROM Neck Circumference: Normal Teeth Condition: Normal Dentition ASA Classification ASA Score: ASA 3 Emergency Case?: Yes NPO Status NPO Status: NPO Clears >2 hours, Solids >8 hours Anesthesia Plan Resuscitation Status: Full Code Anesthesia Technique: General Anesthesia Airway Planned: LMA Monitors Used: Standard Monitors and SedLine
--- NOTE | 2024-11-07 08:49 | PDOC.CMPRO ---
Date of service: 11/07/24 Time of Service: 08:49 Care Management Progress Note Progress Note Text Progress Note Text: Jorje was sitting up in bed working on his laptop when CM met with him; Juliane was present at the bedside. Both are calm, pleasant and easy to engage in conversation. Jorje met with Urology (Dr. Soto) this yesterday afternoon and is planning to go to the OR for a cystoscopy, later morning if he is medically stable. Jorje is eager to find out what is wrong with him, and shares that he greatful that Dr. Soto is taking him to the OR today. Jorje denies concerns at this time. He reported to CM that does not have a PCP per se, but does see Dr. Solomon Martins, a Homeopathic MD based in [place]. CM will continue to follow. Discharge Potential Discharge Needs: PCP F/U Appt Anticipated Barriers to Discharge: None Identified Patient/Family Education Needs: Review discharge instructions, discuss Ask Me Three Transportation: Private vehicle Plan: Patient requires further medical work up and is now planning to go to the OR for a cystoscopy. PT evaluation may be helpful to support discharge planning needs (when medically appropriate.) Discharge planning continues. CM will follow. Social Determinants of Health Screening Social Determinants of health last assessed in clinic: 11/07/24 Will the Patient Participate in the Screening?: Yes Do you worry about having a steady place to live?: yes What is your living situation today?: I have housing today, but am worried about losing it Problems where you live: no known problems In the past 12 months, have you had to go without electric, gas, oil or water in your home?: no 1. Within the past 12 months, we worried whether our food would run out before we got money to buy more.: Never true 2. Within the past 12 months, the food we bought just didn't last and we didn't have money to get more.: Never true Has lack of transportation kept you from medical appointments or from doing things needed for daily living?: no Has anyone in your life made you feel unsafe or unsupported?: no How hard is it for you to pay for the very basics like food, housing, medical care, and heating? Would you say it is:: Not hard at all Do you want help finding or keeping work or a job?: I do not need or want help If for any reason you need help with day-to-day activities such as bathing, preparing meals, shopping, managing finances, etc., do you get the help you need?: I don?t need any help How often do you feel lonely or isolated from those around you?: Never Do you speak a language other than Irish at home?: No Does the patient want assistance with any of the above?: No Health Related Social Needs Health related social needs: housing instability, housed, with risk of homelessness (Z59.811) Health related social needs details: N/A
[2024-11-07] MEDS: DEXTROSE 5%-LACTATED RINGERS 1,000 ML 75 ML IV (09:09)
[2024-11-07 09:28] LABS: Anion Gap 8.7 mmol/L (3-11); BUN 31 mg/dL (7-18); CO2 24.3 mmol/L (21.0-32.0); Calcium 8.3 mg/dL (8.5-10.1); Chloride 109 mmol/L (98-107); Estimated GFR 28.14 (mL/min/1.73m2); Glucose 109 mg/dL (74-106); Potassium 4.3 mmol/L (3.5-5.1); Sodium 142 mmol/L (136-145)
--- NOTE | 2024-11-07 10:31 | PGE_ITS ---
Date of Service Date of service: 11/07/24 Time of Service: 10:32 Assessment and Plan Assessment and plan (1) Severe anemia: Status: Acute Assessment and plan: secondary to ongoing hematuria. Hgb 4.1 on admission. He eventually agreed to transfusion and transfused 2 units 11/02, 3 units 11/03, and 1 unit 11/04 Additional uint ordered 11/07 with hgb 6.7 after discussion. requesting direct transfusion, discussed why this is not as safe. Follow h/h daily (2) Clot hematuria: Status: Acute Assessment and plan: This is chronic, source of blood clot. Urology consulted. Bladder irrigation cystoscopy with Soto planned 11/07, later in day after transfusion. Hopefull this addresses source of bleeding. (3) Catheter-associated urinary tract infection: Status: Acute Assessment and plan: Diagnosed 2 days prior to admission but not yet treated. Citrobacter growing, senstive to ceftriaxone, he accepted this treatment. Rodríguez was replaced11/01 when this was diagnosed (4) Sepsis: Status: Acute Assessment and plan: With fever, elevated HR, RR in setting of acute urine infection, though anemia likely signficicant cause of pulse and RR abnormalities. Ceftriaxone as above. Blood cultures NGTD pending. Improved after transfusion. (5) Hypertension: Assessment and plan: Chronically poorly controlled, has had CVA and CKD related to this. He isn't taking losartan. Monitor this for now, encourage BP meds upon discharge (6) DVT prophylaxis: Status: Acute Assessment and plan: bleeding. TEDS/SCDs (7) Discharge planning issues: Status: Acute Assessment and plan: Palliative consult, appreciate their help navigating patient's unorthodox medical beliefs and his goals of care. Subjective Subjective Patient reports: no new complaints, feels better and tolerating a regular diet; denies blood in stool, nausea, vomiting, shortness of breath or fever Interval history since last seen: He feels well. Still red blood in urine. He was up walking and did not feel dizzy, chest pain, or shortness of breath. He hasn't had a BM in 2 days, mg glycinate he takes at home help him typically. NPO this morning pending cysto. Exam Narrative Exam Narrative: General: older adult male, pale, lying in hospital bed w/headphones on for hearing aid Resp: even and unlabored, CTAB CV: RRR, no m/g/r abd: soft, NT/ND Ext: no c/c/e Objective Last Vital Signs Temp 36.7 C 11/07/24 09:43 Pulse 68 11/07/24 09:43 Resp 15 11/07/24 09:43 BP 149/96 H 11/07/24 09:43 Pulse Ox 96 11/07/24 09:43 Laboratory Results - last 24 hr 11/07/24 11/07/24 06:10 07:35 WBC 7.10 RBC 2.51 L Hgb 6.7 L* D Hct 20.8 L* MCV 83 MCH 26.7 L MCHC 32.2 RDW 21.3 H Plt Count 310 MPV 10.4 Immature Gran % 1.7 Neutrophils % 67.4 Lymphocytes % 14.8 Monocytes % 8.3 Eosinophils % 7.2 Basophils % 0.6 Nucleated RBC % 0.0 Absolute Neutrophils 4.79 Absolute Lymphocytes 1.05 L Absolute Monocytes 0.59 Absolute Eosinophils 0.51 Absolute Basophils 0.04 RBC Morphology See Below Anisocytosis 2+ Sodium 142 Potassium 4.3 Chloride 109 H Carbon Dioxide 24.3 Anion Gap 8.7 BUN 31 H Creatinine 2.4 H Est GFR (CKD-EPI 2020) 28.14 Glucose 109 H Calcium 8.3 L ABO/Rh O Positive Antibody Screen NEGATIVE Crossmatch See Detail Time Spent with Patient Time Spent with Patient: 35-49 minutes Time was spent: preparing to see the patient(eg.review tests), obtaining and/or reviewing separately otained hiistory, ordering medications,tests, procedures, referring, communicating with other health care transitions manager, indepentently interpreting results, counseling the patient and care coordination
[2024-11-07] MEDS: cefTRIAXone 1 GM/50 ML BAG IVPB ×2 (12:22→21:06)
[2024-11-07] MEDS: Lactated Ringers 1,000 ML 30 ML IV (12:22)
--- NOTE | 2024-11-07 12:38 | NS.NUTBLAN_ITS ---
Date of service: 11/07/24 Time of Service: 09:45 Nutritional Consult ASSESSMENT: Received nutrition consult for patient 69yo male being treated for severe anemia and clot hematuria with catheter- associated UTI, sepsis, HTN. Juliane present at bedside and did the talking for jorje who way lying in bed with ear phones on and didn't reply much but thanked me when we were done. Jorje npo for cytoscopy and clot evacuation procedure with Dr Soto. Takes many nutrition supplements at home and Juliane prepares the meals and snacks. She voices concerns for things like glyphosphates in grain products and chooses to avoid conventional strawberries due to methyl bromide residues - buys organic mostly. Juliane states UBW for Jorje is ~185lbs/84.1kg and estimates a 5lb weight loss over the last ~1week. Recorded weight history reveals a 7.6kg wt loss (9% of body weight) in less than 5 months time - although weight accuracy seems inconsistent. Juliane confirms low po intake over the last few months and their usual diet can be less caloric dense than he might need for weight recovery with low animal protein intake. NFPE not performed - juliane declined at this time. Labs: still anemic with Hgb/Hct up with transfusions to 7.7/23.6 today (11/08). Chloride 109, BUN/Cr 28/2.3, Ca 8.2, Total protein/albumin 6.0/2.5 (11/05) Offered ONS options for Jorje once PO resumes later today/tomorrow - feels there is too much sugar in many of these - I informed that we had sugar free options and she declined d/t art sweeteners. Option of a fruit smoothie with whey protein powder might be acceptable so will offer this and check on acceptance. Estimated energy needs: 1939kcals (REEx1.3AF), 84g-105g protein (1.2-1.5g/kg) and 1939mL fluid (1mL per required kcal) NUTRITIONAL DIAGNOSIS: Inadequate intake likely related to chronic/acute anemia, aging and most likely lower protein/energy intake per usual diet, as evidenced by significant weight loss noted above and during interview with Juliane. INTERVENTION: Will offer whey protein smoothie for additional kcals and protein today and check back on toleration/acceptance or any possible substitute they may be open to. -can try to order liquid protein pkts TID for nursing to offer -will support with preferred food choices MONITORING AND EVALUATION: Will monitor po intake, nutrition-related labs, weight and ONS acceptance. Time Spent in Nutritional Counseling and Treatment: 10 min
[2024-11-07] MEDS: Lidocaine 2% Jelly 11 ML SYR (13:06)
[2024-11-07 13:10] LABS: HCT 23.8 % (40.0-50.0); HGB 7.5 g/dL (13.5-17.5)
--- NOTE | 2024-11-07 13:35 | BLADDER_PTH ---
PATIENT: Jorje Mederos LOC: U#:[id number] AGE/SX: 69/M ROOM: 208 RE11/01/[address]: Zach Campo : 1955 BED: A DIS: 11/09/2024 SPEC #: [id number] RECD: 11/07/24 18:01 STATUS: VIOLET REMinor #: [id number] ANNMARIE: 11/07/24 13:[address]: Zach Campo DEPT: Surgical Specimen RECD BY: Adilia Umana ENTERED: 11/07/24 18:03 SP TYPE: Bladder OTHR DR: Sheila Lewis Chad Eugene Dixon, MD Unknown,Unknown Tissues: 1 - BLADDER CURRETTINGS Procedures: GROSS AND MICRO LEVEL 5 Comments: [id number]
--- NOTE | 2024-11-07 13:48 | ROE_ITS ---
Operative Note Operative Note PRE-OP DIAGNOSIS: Gross hematuria POST-OP DIAGNOSIS: same Large bladder mass PROCEDURE: Cystoscopy, clot evacuation, TUR Bladder Tumor (greater than 5 cm) SURGEON: Jean-Pierre Soto ANESTHESIA TYPE: Local By Surgeon and General:No Airway Refer to Anesthesia Record ESTIMATED BLOOD LOSS: 200 PATHOLOGY: other (bladder tumor) COMPLICATIONS: None Patient was transported to: PACU Patient's condition: stable Implants: 24 Kenyan coude tipped irrigating catheter with 30 cc sterile water in balloon Indications: This is a 69-year-old gentleman who initially presented with gross hematuria over 6 months ago. We recommended a CT urogram followed by a cystoscopy. He was resistant to an evaluation. He had multiple visits to the emergency department both here at [facility] and to other facilities. He would have catheters placed and hand irrigation performed. At 1 point he did have a local cystoscopy by a provider and it was recommended that he seek treatment at a larger facility for biopsy of some type of abnormality. He presented to our emergency room recently with severe anemia. He had a hemoglobin of 4. At first, he was resistant to blood transfusions. Ultimately, he has agreed to transfusions and he received 6 units of blood. He had a noncontrast CT scan done in the emergency department that showed no renal mass es. He did have mild hydronephrosis on the right and moderate hydronephrosis on the left. He is now agreeable to cystoscopy with possible biopsy/transurethral resection/fulguration of any abnormality Findings: Large left sided bladder mass (greater than 5 cm in largest dimension) Unable to visualize left ureteral orifice Right orifice normal Procedure Description: The patient was given an extra unit of blood this morning. He was given an additional dose of ceftriaxone and brought to the operating room on 11/07/2024. After successful induction of general anesthesia without intubation, he was placed in the dorsal lithotomy position. His indwelling catheter balloon was deflated and the catheter was removed in its entirety. His genitalia was then prepped with Betadine. 2% Xylocaine jelly was instilled into the urethra to act as a local anesthetic. A 22 Kenyan rigid cystoscope was passed through the urethra into the bladder. The urethra and bladder were inspected with a 30 degree lens. The pendulous, bulbar and membranous urethra's appeared normal with no active bleeding seen. The prostatic urethra showed some lateral lobe enlargement with prominent blood vessels, but again there was no adherent clot or active bleeding seen. The bladder neck was entered and the bladder mucosa was inspected. A few small clots were seen at the base of the bladder. The right ureteral orifice appeared normal with no blood coming from the right side. The majority of the bladder mucosa was heavily trabeculated, but there was a large papillary mass occupying the left trigone and posterior bladder wall. The mass extended up the lateral left side of the bladder as well. The mass was estimated to be well over 5 cm in largest dimension. I evacuated the blood clots from the bladder using a Luz syringe and switched over to an [employer] resectoscope. We utilized bipolar cautery to perform transurethral resection of the large tumor. I would consider the resection to be incomplete. All resected tissue was evacuated and sent to pathology for permanent section. I then switched over to the ball electrode and cauterized the resection site. I was never able to visualize the left ureteral orifice during the procedure. At the completion of the procedure, there was no active bleeding identified. They filled the bladder with saline and removed the resectoscope. I then passed a 24 Kenyan hematuria catheter back through the urethra into the bladder. The catheter balloon was inflated with 30 cc of sterile water. Continuous bladder irrigation with saline was begun. I then performed bimanual examination and while there was firmness palpable on the left side of his bladder, I did not feel any pelvic sidewall fixation. The patient tolerated the procedure well with no complications. He was taken to the recovery room in stable condition. I estimated his blood loss to be about 200 cc. Because of his preop anemia and his blood loss in the OR, we elected to give him 1 additional unit of blood in the recovery room. Date of Procedure: 11/07/24
[2024-11-07] MEDS: fentaNYL 100 MCG/2 ML VIAL IVP ×3 (14:42→15:10)
--- NOTE | 2024-11-07 15:03 | W.ANESPOSTOP ---
Postoperative Evaluation Date, Time and Location Date Performed: 11/07/24 Time Performed: 15:03 Patient Location: PACU Vital Signs Most Recent Imported Vital Signs: Most Recent Vital Signs Temp Pulse Resp BP Pulse Ox 36.5 C 62 13 201/100 H 99 11/07/24 14:45 11/07/24 14:31 11/07/24 14:31 11/07/24 14:31 11/07/24 14:31 Pain Score Most Recent Pain Score: Most Recent Pain Score Pain Level [Generalized] 0 11/07/24 03:49 Pain Level 0 11/07/24 14:45 Assessment Mental Status: Awake (Alert & Oriented to Patient Baseline) Airway and Respiratory Function: Patent airway with normal (patient baseline) respiratory exam Cardiovascular Function: Hemodynamically Stable Hydration Status: Adequately Hydrated Nausea & Vomiting: No Nausea or Vomiting Pain: Pt. Denies Any Pain Peripheral Nerve Block: Patient did not receive a nerve block Postoperative Comments:: BPs 160s/70s per ARBORICULTURIST after second dose of fentanyl. Patient good to go to the floor. Patient denied any questions.
--- NOTE | 2024-11-07 15:58 | AC.ASSESS ---
Asthma Clinic Visit
--- NOTE | 2024-11-07 15:58 | CHAPLAIN ---
I had a brief visit with Fabrice who had returned from surgery earlier in the day. Juliane was with him. I offered to pray for them as that is what they've requested. I will continue to visit.
[2024-11-07] MEDS: Oxybutynin 5 MG TAB PO (17:15)
[2024-11-07] MEDS: Normal Saline Flush 10 ML SYR IVP ×2 (20:05→21:08)
[2024-11-07] MEDS: Magnesium Chloride 64 MG TABCR PO (21:08)
[2024-11-08 02:25] VITALS: BP 166/95; PULSE 78; RESP 17; TEMP 36.7; O2SAT 93
[2024-11-08] MEDS: DEXTROSE 5%-LACTATED RINGERS 1,000 ML 75 ML IV (05:36)
[2024-11-08 07:10] VITALS: BP 154/99; PULSE 76; RESP 17; TEMP 36.9; O2SAT 96
[2024-11-08 07:17] LABS: HCT 23.6 % (40.0-50.0); HGB 7.7 g/dL (13.5-17.5)
[2024-11-08 07:26] LABS: Anion Gap 8.1 mmol/L (3-11); BUN 28 mg/dL (7-18); CO2 24.9 mmol/L (21.0-32.0); Calcium 8.2 mg/dL (8.5-10.1); Chloride 109 mmol/L (98-107); Estimated GFR 29.62 (mL/min/1.73m2); Glucose 106 mg/dL (74-106); Magnesium 1.8 mg/dL (1.8-2.4); Potassium 3.8 mmol/L (3.5-5.1); Sodium 142 mmol/L (136-145)
[2024-11-08] MEDS: Magnesium Chloride 64 MG TABCR PO ×2 (08:47→19:51)
[2024-11-08] MEDS: Normal Saline Flush 10 ML SYR IVP ×3 (08:47→23:01)
--- NOTE | 2024-11-08 10:25 | CMPROGNOTE_ITS ---
Date of service: 11/08/24 Time of Service: 10:25 Care Management Progress Note Progress Note Text Progress Note Text: Jorje was sitting up in bed, getting ready to eat lunch when CM attempted to meet with him and denies concerns at this time. He underwent surgery with Dr. Soto yesterday, during which a large bladder mass was identified. As of today, his urine is clear; however per RN he reports ongoing concerns with constipation. Juliane has voiced parameters under which this can be managed, MD and RN aware. Discharge is anticipated for tomorrow. Rodríguez catheter management will follow Urology recommendations, per Dr. Campo. PT consult is pending. HH orders if needed will be placed under Dr. Campo, as the patients primary provider is a Homeopathic MD, and not able to follow HH orders (per [facility] guidelines.) Discharge Potential Discharge Needs: Consult Consult Services Needed: Palliative and PT Evaluation Anticipated Barriers to Discharge: None Identified Patient/Family Education Needs: Review discharge instructions, discuss Ask Me Three Transportation: Private vehicle Plan: PT consult is pending, Dr. Campo agrees to follow HH orders if needed on discharge. Jorje will likely go home with a catheter, Dr. Soto will advise. Jorje will discharge home via private vehicle with Juliane, likely tomorrow. Jorje will follow up with community providers and discharge plan of care as directed. CM will follow. Social Determinants of Health Screening Social Determinants of health last assessed in clinic: 11/08/24 Will the Patient Participate in the Screening?: Yes Do you worry about having a steady place to live?: yes What is your living situation today?: I have housing today, but am worried about losing it Problems where you live: no known problems In the past 12 months, have you had to go without electric, gas, oil or water in your home?: no 1. Within the past 12 months, we worried whether our food would run out before we got money to buy more.: Never true 2. Within the past 12 months, the food we bought just didn't last and we didn't have money to get more.: Never true Has lack of transportation kept you from medical appointments or from doing things needed for daily living?: no Has anyone in your life made you feel unsafe or unsupported?: no How hard is it for you to pay for the very basics like food, housing, medical care, and heating? Would you say it is:: Not hard at all Do you want help finding or keeping work or a job?: I do not need or want help If for any reason you need help with day-to-day activities such as bathing, preparing meals, shopping, managing finances, etc., do you get the help you need?: I don?t need any help How often do you feel lonely or isolated from those around you?: Never Do you speak a language other than Hungarian at home?: No Does the patient want assistance with any of the above?: No Health Related Social Needs Health related social needs: housing instability, housed, with risk of homelessness ([phone]) Health related social needs details: N/A Anticipated HH Services Anticipated HH Services at Discharge [facility] (Possible need, PT consult is pending and likely to have a catheter on discharge) Anticipated Date of Discharge: 11/09/24. Following Provider: Dr. Campo.
[2024-11-08 11:03] VITALS: BP 161/99; PULSE 75; RESP 17; TEMP 37.1; O2SAT 97
--- NOTE | 2024-11-08 12:01 | W.PALPGNOTE ---
Date of service: 11/08/24 Time of Service: 10:45 Assessment and Plan Assessment and plan (1) Hematuria: Status: Acute Assessment and plan: improved post cystoscopy 11/07 5cm mass found, pathology pending (2) Severe anemia: Status: Acute Assessment and plan: has required blood transfusions x3 during this hospitalization last received 1 unit 8/5 AM continue to monitor no active bleeding post cystoscopy per urology (3) Conflict between cheondoism belief and healthcare recommendation: Status: Acute Assessment and plan: Jorje reviews that it is not his cheondoism affiliation that dictates his choices in healthcare engagement, rather a hesitation to believing in western medicine, seeing intimidating/problematic tactics used; overall, he is happy to be in hospital currently, engaging in diagnostic work up to hopefully find answers w/cure as a goal - open to all treatments/diagnostics at this time, w/the appropriate reasoning/education (4) Palliative care encounter: Status: Acute Assessment and plan: PC will continue to follow, if remains inpatient, f/u 11/10 - continue to review updates in current diagnostic work up, anemia treatment, POC w/oncology team (5) Advanced care planning/counseling discussion: Status: Acute Assessment and plan: reviewed typical western medicine approach to cancer diagnostics and treatment, reviewed local resources avail for homeopathic treatments, may be coordinated if Dr. Martins not already aware of providers reviewed and completed HCA form, ex- Juliane and sister Anaid listed reviewed and completed COLST, DNR/I, trial FT w/no PEG, yes fluids, yes abx if indicated; would defer to HCA regarding appropriateness to stopping IVF/abx his preference is to always be open to complete healing, as a real possibility. This is an important aspect to his care spent 35m w/ACP Subjective Subjective Interval history since last seen: Jorje remains hospitalized at [facility] 2/2 hematuria Yesterday he had a cystoscopy w/Dr Soto, a 5cm tumor was resected and sent for pathology; hematuria has improved since then; plan for f/u w/urology tomorrow 11/09 - he did receive an additional unit of blood yesterday Jorje is interested in engaging w/PC visit today He is beginning to feel he may have cancer, his current preference if this were true would be to treat cancer w/homeopathic/holistic treatments, which he is aware there is an increasing body of literature supportive of new protocols; - he has a homeopathic doc in [place], Dr. Solomon Martins, whom he trusts very much and is aware of his current condition; he would want connection to a homeopathic provider w/specialty in cancer treatments - he does have some concerns if his bleeding does not stop, he is aware he can only tolerate so many blood transfusions Historically he has not engaged with the healthcare system, not too interested in my own health, preferring a holistic approach. Denies that his cheondoism affiliations (Voodoo) to date have influenced this preference in care. He has no stated preferences for terminology or subjects to avoid reviewing. - while in general he does not like western medicine, he does see the improvements they've made, lonnie w/surgical procedures, like the one he had yesterday; happy this was able to occur - finds the medical system intimidating and problematic He lives in [place], his plan post hospitalization is to move in w/his ex- Juliane. He is open to having a PT consult today, lonnie to get out of bed today, he is less interested in PT if it were recommended and would prefer to do walking exercises on his own He is grateful for life. he would want to avoid any trips to [facility] if they could be avoided. He has a f/u w/PCP scheduled for a few days He is open to reviewing and completing a HCA and COLST form today Exam Narrative Exam Narrative: General: older adult male, pale, lying in hospital bed w/headphones on, AAOx3; thin HEENT: normocephalic, atraumatic; hearing appropriate w/use of headphones; MMM; eats banana WNL Resp: even and unlabored; speaks full sentences w/o SOB; no cough, no audible wheeze Psych: cooperative, pleasant, speech/movement WNL; thought process WNL; normal affect; insight/judgment good Objective Last Vital Signs Temp 98.8 F 11/08/24 11:03 Pulse 75 11/08/24 11:03 Resp 17 11/08/24 11:03 BP 161/99 H 11/08/24 11:03 Pulse Ox 97 11/08/24 11:03 Laboratory Results - last 24 hr 11/07/24 11/07/24 11/08/24 07:35 13:04 06:04 Hgb 7.5 L 7.7 L Hct 23.8 L 23.6 L Sodium 142 Potassium 3.8 Chloride 109 H Carbon Dioxide 24.9 Anion Gap 8.1 BUN 28 H Creatinine 2.3 H Est GFR (CKD-EPI 2020) 29.62 Glucose 106 Calcium 8.2 L Magnesium 1.8 ABO/Rh O Positive Antibody Screen NEGATIVE Crossmatch See Detail
--- NOTE | 2024-11-08 14:14 | PGE_ITS ---
Date of Service Date of service: 11/08/24 Time of Service: 09:10 Assessment and Plan Assessment and plan (1) Severe anemia: Status: Acute Assessment and plan: secondary to ongoing hematuria. Hgb 4.1 on admission. He eventually agreed to transfusion and transfused 2 units 11/02, 3 units 11/03, and 1 unit 11/04, 2 uits 11/07 around cystoscopy/bladder resection. 7.7, expect to stabilize. Follow h/h daily. Received full repletion with 3 doses IV iron sucrose. (2) Clot hematuria: Status: Acute Assessment and plan: This is chronic, source of blood clot. Urology consulted, now s/p cystoscopy with resection of bladder mass. Plan is to contine bladder irrigation, if stays clear likely discharge 11/09. (3) Catheter-associated urinary tract infection: Status: Acute Assessment and plan: Diagnosed 2 days prior to admission but not yet treated. Citrobacter growing, sensitive to ceftriaxone, he accepted this treatment, now day 10/09 for complicated UTI, can stop treatment. Rodríguez was replaced 11/01 when this was diagnosed (4) Hypertension: Assessment and plan: Chronically poorly controlled, has had CVA and CKD related to this. He isn't taking losartan, resume if he is willing prior to discharge. (5) DVT prophylaxis: Status: Acute Assessment and plan: was bleeding. TEDS/SCDs (6) Discharge planning issues: Status: Acute Assessment and plan: Palliative consult, appreciate their help navigating patient's unorthodox medical beliefs and his goals of care. Can follow outpatient as well. Will need urology follow up 1 week for biopsy results and treatment planning Subjective Subjective Patient reports: no new complaints, feels better and tolerating a regular diet; denies nausea, vomiting, shortness of breath or fever Interval history since last seen: Events: cystoscopy 11/08, tumor resected and base cauterized, bleeding stopped. Transfused 2 units RBCs 11/07 He feels better today. Urine is now clear. He is eating. Walking without pain. Exam Narrative Exam Narrative: General: older adult male, pale, thin, sitting up in hospital bed w/headphones on for hearing aid Resp: even and unlabored, CTAB CV: RRR, no m/g/r abd: soft, NT/ND Ext: no c/c/e Objective Last Vital Signs Temp 37.1 C 11/08/24 11:03 Pulse 75 11/08/24 11:03 Resp 17 11/08/24 11:03 BP 161/99 H 11/08/24 11:03 Pulse Ox 97 11/08/24 11:03 Laboratory Results - last 24 hr 11/07/24 11/08/24 07:35 06:04 Hgb 7.7 L Hct 23.6 L Sodium 142 Potassium 3.8 Chloride 109 H Carbon Dioxide 24.9 Anion Gap 8.1 BUN 28 H Creatinine 2.3 H Est GFR (CKD-EPI 2020) 29.62 Glucose 106 Calcium 8.2 L Magnesium 1.8 ABO/Rh O Positive Antibody Screen NEGATIVE Crossmatch See Detail Time Spent with Patient Time Spent with Patient: 25-34 minutes Time was spent: preparing to see the patient(eg.review tests), obtaining and/or reviewing separately otained hiistory, ordering medications,tests, procedures, referring, communicating with other health progressive care unit registered nurse, indepentently interpreting results, counseling the patient and care coordination
[2024-11-08 15:04] VITALS: BP 151/90; PULSE 86; RESP 16; TEMP 36.9; O2SAT 98
[2024-11-08 19:56] VITALS: BP 144/93; PULSE 76; RESP 16; TEMP 37.3; O2SAT 97
[2024-11-08] MEDS: cefTRIAXone 1 GM/50 ML BAG IVPB (23:00)
[2024-11-08 23:42] VITALS: BP 163/94; PULSE 80; RESP 17; TEMP 36.8; O2SAT 98
[2024-11-09 03:14] VITALS: BP 157/91; PULSE 72; RESP 16; TEMP 36.5; O2SAT 97
[2024-11-09 07:03] LABS: HCT 24.7 % (40.0-50.0); HGB 7.9 g/dL (13.5-17.5)
[2024-11-09 07:24] VITALS: BP 168/107; PULSE 76; RESP 16; TEMP 36.4; O2SAT 98
--- NOTE | 2024-11-09 07:25 | PGE_ITS ---
Date of Service Date of service: 11/09/24 Time of Service: : Assessment and Plan Assessment and plan (1) Hematuria: Status: Acute (2) Bladder mass: Status: Inactive Assessment and plan: There is no evidence of of persistent bleeding, so we can discontinue his bladder irrigation and place a catheter plug on the irrigation port of his Rodríguez. He can be discharged to home with the Rodríguez catheter in place for about a week. He can come to our office early next week to have the catheter removed. We will also set up an appointment to meet with the patient and his to discuss the pathology results when they are available. He should not do any straining or lifting anything over 10 pounds for 1 week until the catheter is removed. Knowing that indwelling catheters can be associated with UTIs, I would suggest sending him home with a prophylactic dose of antibiotics. Based on his previous culture, nitrofurantoin 50 mg p.o. at bedtime seems reasonable. Subjective Subjective Interval history since last seen: He has been comfortable with no significant gross hematuria episodes and no episodes of clot retention He is tolerating oral nutrition and medications Exam Narrative Exam Narrative: He appears comfortable. He was sleeping when I came into the room His urine is clear with the CBI turned off He is awake and alert His hemoglobin and hematocrit this morning are essentially unchanged from yesterday Objective Last Vital Signs Temp 36.5 C 11/09/24 03:14 Pulse 72 11/09/24 03:14 Resp 16 11/09/24 03:14 BP 157/91 H 11/09/24 03:14 Pulse Ox 97 11/09/24 03:14 Laboratory Results - last 24 hr 11/08/24 11/09/24 06:04 06:10 Hgb 7.9 L Hct 24.7 L Sodium 142 Potassium 3.8 Chloride 109 H Carbon Dioxide 24.9 Anion Gap 8.1 BUN 28 H Creatinine 2.3 H Est GFR (CKD-EPI 2020) 29.62 Glucose 106 Calcium 8.2 L Magnesium 1.8 Time Spent with Patient Time Spent with Patient: 25-34 minutes Time was spent: preparing to see the patient(eg.review tests), obtaining and/or reviewing separately otained hiistory, referring, communicating with other [facility] care asst, indepentently interpreting results and counseling the patient
--- NOTE | 2024-11-09 08:31 | IN_ITS ---
Date of service: 11/09/24 Time of Service: 07:37 PT Notes Visit Reasons: sepsis/UTI, hematuria, anemia, renal failure Inpatient Physical Therapy Evaluation I certify the need for these services as being medically necessary and skilled as furnished under this plan of treatment while under my care. Please sign and return within 14 days if you agree with the plan of care listed below.? Thank you for this referral! ? Referring Physician? Date Referring Doctor:? Zach Campo PT Orders: PT CONSULT for safety consult for D/c Precautions: fall risk Patient Profile/Admitting Diagnosis:? The patient is a 69 yo male adm on 11/01/24 with severe anemia, catheter associated UTI, sepsis and clot hematuria. Transfused 2 units 11/02, 3 units 11/03, and 1 unit 11/04, 2 uits 11/07 around cystoscopy/bladder mass resection. Past Medical History: All Active Problems (Updated 11/01/24 @ 23:47 by Zach Campo) Discharge planning issues (Acute) DVT prophylaxis (Acute) Sepsis (Acute) Severe anemia (Acute) Conflict between restorationist belief and healthcare recommendation (Acute) Acute on chronic blood loss anemia (Acute) Acute UTI (Acute) Acute kidney injury (Acute) Acute urinary retention (Acute) Clot hematuria (Acute) Catheter-associated urinary tract infection (Acute) Elevated serum creatinine (Acute) Medical History (Updated 11/01/24 @ 23:47 by Zach Campo) CVA (cerebrovascular accident) describes residual left sided parasthesia and ataxiaCKD (chronic kidney disease) stage 4, GFR 15-29 ml/min Hypertension Surgical History (Updated 11/01/24 @ 23:38 by Zach Campo) S/P cystoscopy [place] Medications: See chart Social History/Home Situation: Previously, he was living alone. Has been staying with his ex Juliane (present for today's session) in [place]. Has a full flight of stairs to enter and then will be on one level. She will be available to assist as needed. Subjective: I am very good at falling. 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 Objective: Assisted with set up of tray and breakfast at end of session. Juliane added 4 pats of butter and two salt packets to the patient's eggs, hawkins and sausage. Patient reports he previously had a catheter and feels able to manage this at home. Mental Status: Patient is alert and oriented. Using head phone device to assist with hearing. Pain: No c/o pain during today's session. Vital Signs: 724: 168/107, HR 76, O2 sat 98. ROM/Strength: Upper extremities: WFL Lower extremities:WVL Sensation: No c/o numbness or tingling. Soft tissue/edema: no gross abnormalities observed Bed Mobility: Supine to sit supervision with HOB elevated. able to don his own socks sitting on the edge of the bed. Transfers: Sit to/from stand cga with cuing to pause prior to initiating gait. Gait: Ambulated 110 feet with cga, mildly unsteady with 2 losses of balance requiring cg/min assist. Balance: CGA for static standing. [facility] AM-PAC 6 clicks Basic Mobility Inpatient Short Form: Raw Score:??18 Informed Consent/Education:? Patient instructed in purpose of PT consult and plan of care and is agreeable Treatment: reviewed home set up,activity, equipment options. Will continue to sleep on a futon. Although it is low, the patient was not concerned about being able to get up/down from it. Discussed sponge bathing vs showering at home, may borrow a shower seat from friend to allow him to sit in the shower for energy conservation. Recommended cane or walker secondary to poor balance and risk of falling, but patient declined using an assistive device for safety. Declined trying stairs prior to discharge. Declined suggestion to have someone meet them at the house to allow for two people to stand nearby as he entered the full flight of stairs. Recommend HHPT for strengething/additional set up equipment r ecommendations, but patient declined and reported he did not feel this was necessary. Assessment:? Patient is a?69 yo male adm on 11/01/24 with severe anemia, catheter associated UTI, sepsis and clot hematuria. Patient presents decreased strength, decreased functional mobility, decreased balance and difficulty with ambulation. The patient would benefit from skilled inpatient services to improve these impairments to maximize function and safety, but expect he will be discharged later today. Recommendations as above, but patient does not agree with these recommendations. Patient is assessed as:? Low 27719??complexity based on the following: History: has avoided medical treatment Examination: see above Presentation: Stable and uncomplicated? Decision Making:? Low (0 history, 1-2 exam, stable/predictable, easy 20) Physical Therapy Goals: 2 days, if not discharged Able to get in/out of bed independently Able to perform sit to/from stand independently without loss of balance Able to walk 200 feet with or without an assistive device without loss of balance, supervision only. Able to go up and down a full flight of stairs with 1 rail supervision only without loss of balance. Independent with home exercise program Plan of Care/Treatment Plan: 1x/day, 7 days/week x 1 week if he is not discharged Plan of care has been reviewed with the FURNITURE LUMBER PRODUCTION WORKER providing the service under Physical Therapy direction. Initiate Physical Therapy intervention for strengthening, bed mobility, transfers, gait, stairs, balance training, use of assistive device. DISCHARGE RECOMMENDATIONS: shower seat, cane/walker, HHPT, 2nd person nearby to perform the full flight to enter his home. Patient does not wish to have assist with any of these recommendations. Informed consent Prior to the start and throughout the course of the examination and treatment, patient was made aware of the specifics and purpose of the physical assessment and treatment procedures. Appropriate draping procedures were utilized to protect modesty where applicable. Billing Charges: Treatment Units Time Duration Manual Therapy(31630) Hands-on techniques to modulate pain increase joint range of motion reduce or eliminate soft tissue swelling, inflammation, or restriction facilitate relaxation and improve contractile and non-contractile tissue extensibility ? ? Therapeutic Procedures (08815) Instruction in therapeutic exercises to develop strength and endurance, range of motion and flexibility. HEP instruction and review: Provided skilled instruction in proper exercise performance: Provided skilled manual cues to facilitate proper muscle recruitment and/or movement pattern Neurological Re-Education(58639) To improve balance, coordination, kinesthetic and proprioceptive sensations. ? ? Ultrasound(60488) To promote healing. ? ? Gait Training(72642) ? ? Therapeutic Activity(38343) Instruction in dynamic activities with one on one patient contact by the provider to improve functional performance as follows: 1? ?20 Self Care Training(77102) ? ? E-Stim (Attended)(14440) ? ? Low IE(60602) 1 26 Mod IE(67074) ? ? High IE(44490) ? ? Time Coded Treatment Time ? 20 Total Treatment Time ? 46
[2024-11-09] MEDS: Magnesium Chloride 64 MG TABCR PO (09:18)
--- NOTE | 2024-11-09 09:47 | W.PM.DS.N ---
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 His hemoglobin dropped to as low as 4.0 before he accepted transfusion the next monrning. He received a total of 8 units pRBCs through 11/07 when he had a cystoscopy and resection of bleeding bladder mass and his bleeding resolved. He also received 3 doses of IV iron sucrose to replete his low iron stores. His hemoglobin was stable going from 7.7 to 7.9 in the last 24 hours of admission. He received bladder irrigation throughout his admission. His urine was clear after his procedure. He was discharged with a alegre catheter with urology follow up, and prn oxybutynin for bladder spasms. His creatinine was 3 on admission, and improved to 2-2.3 which appears to be his baseline. His blood pressure was initially low, but was high after his hemoglobin stabilized. He will resume losartan upon discharge. His urine did grow campylobacter from 2 days prior to admission. He was treated with 7 days of ceftriaxone. Urology recommended nitrofurantoin low dose as prophylaxis until his alegre is removed. He will need follow up with urology to plan treatment after his pathology returns. He has lost >50lbs this year. We discussed high calorie, high protein diet for weight gain. He prefers to avoid medical nutrition supplements. Recommendations for Follow Up Recommended tests to be ordered by follow up provider: Follow blood counts in 1 week. BMP and Mg in 1 week Follow up on pathology from bladder mass Home Meds and New Rx's Prescriptions: New oxybutynin chloride 5 mg Tablet 5 mg PO TID PRN PRN (Reason: spasms) Qty: 30 0RF nitrofurantoin macrocrystal 50 mg capsule 50 mg PO QHS Qty: 14 0RF Rx Instructions: must administer with a meal/food Continued soybean, fermented [Nattokinase] PO R-lipoic acid 145 mg/scoop powder 300 mg PO DAILY mecobalamin (vitamin B12) 500 mcg tablet,chewable 500 mcg PO DAILY Mag Glycinate 100 mg tablet 500 mg PO DAILY liver pills 1 cap PO DAILY losartan 25 mg tablet 25 mg PO BID Qty: 60 2RF Patient Comments: TAKE ONE TABLET BY MOUTH TWICE A DAY Discontinued aspirin 81 mg tablet,chewable 81 mg PO DAILY Discharge Instructions Additional Instructions: Discuss your blood pressure medication with your PCP. You can resume the aspirin 81mg if you are not bleeding. follow up with Dr. Soto to discuss the pathology results Stand Alone Forms: Nursing Discharge Form Activity:: Activity as Tolerated Equipment/Supplies:: No Equipment Needed Diet:: As Tolerated Discharge Orders Discharge Orders: Discharge Order (Routine); Ordered 11/09/24 Ordered By: Zach Campo DS: Summary Time Spent with Patient providing and/or coordinating discharge services: Greater than 30 minutes Status at Discharge Functional status at discharge: independent ambulation Overall status at discharge: patient is progressing back to baseline Mental Status: mental status grossly normal Speech and Movement: speech and movement normal Mood: congruent mood Affect: normal affect Quality:SDOH Health Related Social Needs: Health related social needs risk of homeless Health related social needs details N/A Health related social needs details: N/A Exam Narrative Exam Narrative: General: older adult male, pale, thin, sitting up in hospital bed w/headphones on for hearing aid Resp: even and unlabored, CTAB CV: RRR, no m/g/r abd: soft, NT/ND Ext: no c/c/e Psych Mental Status: mental status grossly normal Speech and Movement: speech and movement normal Mood: congruent mood Affect: normal affect DS: Data Vitals/I&O Vitals and I&O: Vital Signs Temperature 36.4 C L 11/09/24 07:24 Temperature Source Temporal Artery Scan 11/09/24 07:24 Pulse 76 11/09/24 07:24 Pulse Rhythm Irregular 11/02/24 00:44 Pulse 67 11/07/24 15:21 Respiratory Rate 16 11/09/24 07:24 Respiratory Effort Normal, Non-Labored 11/02/24 00:44 Respiratory Depth Normal 11/02/24 00:44 Blood Pressure 168/107 H 11/09/24 07:24 Blood Pressure Mean 127 11/09/24 07:24 Pulse Oximetry 98 11/09/24 07:24 Respiratory End-tidal CO2 32 11/07/24 15:15 Oxygen Delivery Method Room Air 11/09/24 07:24 Oxygen Flow Rate 0 11/09/24 07:24 Pain Level 0 11/08/24 19:56 Comment RN notified 11/07/24 16:44 Intake & Output 11/08/24 11/08/24 11/09/24 11:59 23:59 11:59 Intake Total 1000 / 2560 1560 / 2560 Output Total 12284 / 71808 6450 / 05202 Balance -9025 / -99299 -4890 / -04136 Intake: IV 1000 / 2060 1060 / 2060 Oral 500 / 500 Output: Urine 30635 / 46351 6450 / 97583 Other: Urine Color Pale Pale Urine Appearance Clear Clear Comment Urine appears to be lightening up over the night. CBI is patent and draining clear urine, no clots. Stool Size Moderate Data Completed and Pending Labs on day of discharge: Labs from last 24 hours 11/09/24 06:10 Hgb 7.9 L Hct 24.7 L PFSH All Active Problems (Updated 11/03/24 @ 13:38 by Clementine Welsh NP) Palliative care encounter (Acute) Advanced care planning/counseling discussion (Acute) Hematuria (Acute) Discharge planning issues (Acute) DVT prophylaxis (Acute) Sepsis (Acute) Severe anemia (Acute) Conflict between restoration belief and healthcare recommendation (Acute) Acute on chronic blood loss anemia (Acute) Acute UTI (Acute) Clot hematuria (Acute) Catheter-associated urinary tract infection (Acute) Elevated serum creatinine (Acute) Medical History CVA (cerebrovascular accident) describes residual left sided parasthesia and ataxia CKD (chronic kidney disease) stage 4, GFR 15-29 ml/min Hypertension Surgical History S/P cystoscopy Anjel/Kirk Social History (Updated 11/03/24 @ 13:46 by Clementine Welsh NP) Smoking/Tobacco Use Status: Never Smoking risk assessment performed?: Yes Alcohol Intake: never Drug use: Never Substance use type: does not use Household members: spouse Housing: house Special rosemary needs: Yes Details: [employer]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 Agree to transfusion: No Do you feel safe at home: Yes Do you feel safe in your relationship?: Yes Additional Social history: Lives in [place] with . Time Spent with Patient Time Spent with Patient: <45 minutes Time was spent: preparing to see the patient(eg.review tests), obtaining and/or reviewing separately otained hiistory, ordering medications,tests, procedures, referring, communicating with other health hospice spiritual care coordinator, indepentently interpreting results, counseling the patient and care coordination
--- NOTE | 2024-11-09 10:19 | PDOC.CMDIS ---
Date of service: 11/09/24 Time of Service: 10:20 LACE Index Scoring Tool Questions: Length of Stay (in days): 7 - 13 Was the patient admitted via the E.D.?: Yes Comorbidities: Cerebrovascular Disease and Liver or Renal Disease E.D. Visits: 9 Answers: Total Score: 17 Risk of Readmission: High Risk Care Management Discharge Plan Reason for Hospitalization: Uti, sepsis Discharge Plan: Jorje will be discharged home with no new services. He will follow up with his community providers and plan of care and transport via private vehicle. Patient/Family Education Needs: Review discharge instructions, discuss Ask Me Three SDOH Health Related Social Needs: Health related social needs risk of homeless Health related social needs details N/A Health related social needs details: N/A
[2024-11-09] MEDS: Fosfomycin Tromethamine 3 GM PACKET PO (11:02)
== END 2024-11-09 12:39 | disposition home or self-care (01) | DRG 668 ==
LOC: ER 11-02 00:09 → MS 11-02 00:11
PROVIDERS: Family Medicine; Hospitalist; Student in an Organized Health Care Education/Training Program; Urology; Admitting Provider Family Medicine; Emergency Provider Emergency Medicine; Responsible Provider Family Medicine; Visit Provider Family Medicine
PROC: 0TBB8ZX Excision of Bladder, Via Natural or Artificial Opening Endoscopic, Diagnostic (ICD-10-PCS; CPT 52204; principal; 2024-11-07 07:30)
DX: T83.511A Infection and inflammatory reaction due to indwelling urethral catheter, initial encounter; A41.9 Sepsis, unspecified organism; N39.0 Urinary tract infection, site not specified; R31.0 Gross hematuria; I12.9 Hypertensive chronic kidney disease with stage 1 through stage 4 chronic kidney disease, or unspecified chronic kidney disease; N18.4 Chronic kidney disease, stage 4 (severe); N32.89 Other specified disorders of bladder; D62 Acute posthemorrhagic anemia; Z59.811 Housing instability, housed, with risk of homelessness; B96.89 Other specified bacterial agents as the cause of diseases classified elsewhere; Z66 Do not resuscitate; C67.9 Malignant neoplasm of bladder, unspecified
CPT/HCPCS: 52240; 52001; 00123; 36415; 71250; 80048; 80053; 84145; 85027; 86850; 86900; 86901; 86920; 86945; 87040; 87077; 93005; 96365; 97161; 97530; 99222; 99232; 99233; 99285; 74176; 81003; 81015; 83735; 84484; 85014; 85018; 85025; 85610; 86644; 87086; 87186; 88307; 93010; 99239; J0696; J1756; J2003; J2704; J3010; J3490; P9016

== ENCOUNTER → 2024-11-02 08:03 | Outpatient (BNVA) | payer MEDICARE, SELFPAY | PROVIDERS: Visit Provider Urology ==

== ENCOUNTER → 2024-11-07 15:44 | Outpatient (BNVA) | payer MEDICARE, SELFPAY | PROVIDERS: Visit Provider Urology ==

== ENCOUNTER → 2024-11-15 09:01 | Outpatient (BNVA) | payer MEDICARE, SELFPAY | PROVIDERS: Visit Provider Nurse Practitioner Gerontology | DX: R31.0 Gross hematuria (principal) | CPT/HCPCS: 99213 ==

== ENCOUNTER → 2024-11-30 14:47 | Outpatient (BNVA) | payer MEDICARE, SELFPAY | PROVIDERS: Visit Provider Urology | DX: C67.9 Malignant neoplasm of bladder, unspecified (principal) | CPT/HCPCS: 99215 ==